=== PATIENT | male | born 1950 | race Caucasian/White ===

== ENCOUNTER 2020-08-23 08:05 | Outpatient (CLI) | payer OTHER, SELFPAY ==
--- NOTE | 2020-08-23 08:25 | US_ITS ---
WS: [id number] ULTRASOUND ABDOMEN LIMITED CLINICAL INFORMATION: ELEVATED LIVER ENZYMES COMPARISON: None. FINDINGS: Liver Size: Normal. Craniocaudal length: 11.1 cm. Echogenicity: Normal. Surface nodularity: None. Mass (size and location): None. Bile ducts Intrahepatic ducts: Normal. Common bile duct diameter: 0.5 cm. Gallbladder Normal. Gallstones: None. Gallbladder sludge: None. Gallbladder wall thickening: None. Pericholecystic fluid: None. Sonographic Wade sign: Absent. Pancreas Normal as visualized. Right kidney: Normal. Hydronephrosis: None. Size: 10.1 cm x 4.3 cm x 4.1 cm. Abdominal aorta and IVC Visualized portions are normal. Ascites: None. US/US liver [id number] IMPRESSION: Normal abdominal ultrasound
== END 2020-08-23 08:06 | disposition home or self-care (01) ==
LOC: US 08:07
PROVIDERS: PCP Family Medicine; Visit Provider Family Medicine
DX: R94.5 Abnormal results of liver function studies (principal)
CPT/HCPCS: 76705

== ENCOUNTER 2022-03-17 08:16 | Oncology outpatient (recurring) (ONCR) | payer OTHER, SELFPAY ==
[2022-03-17 09:38] LABS: Basophils % 0.8 %; Eosinophils % 1.1 %; Hematocrit 28.3 % (42.0-52.0); Hemoglobin 9.4 g/dL (11.7-16.6); Lymphocytes # 0.6 10^3/uL (0.8-4.8); Lymphocytes % 22.9 %; Mean Corpuscular HGB Conc 33.2 g/dL (30.0-36.0); Mean Corpuscular Hemoglobin 37.9 pg (28.0-34.0); Mean Corpuscular Volume 114.1 fl (80-94); Mean Platelet Volume 11.6 fL (7.4-10.4); Monocytes # 0.3 10^3/uL (0.2-0.9); Monocytes % 10.2 %; Neutrophils # 1.73 10^3/uL (1.8-7.7); Nucleated Red Blood Cells % 0 %; Platelet Count 124 10^3/cmm (130-400); Red Blood Count 2.48 10^6/uL (4.1-5.3); Red Cell Distribution Width 17.9 % (12.1-15.1); White Blood Count 2.7 10^3/uL (4.0-10.0)
[2022-03-17 09:55] LABS: LAB Peripheral Smear Sent for Review
[2022-03-17 10:25] LABS: Alanine Aminotransferase 11 U/L (0-41); Albumin Level 4.1 g/dL (3.5-5.2); Alkaline Phosphatase 97 U/L (40-130); Anion Gap 8.1 (5-19); Aspartate Amino Transferase 44 U/L (0-40); Blood Urea Nitrogen 17 mg/dL (8-23); Calcium 9.2 mg/dL (8.5-10.5); Carbon Dioxide 30 mmol/L (22-29); Chloride 98 mmol/L (98-107); Globulin 3.2 g/dL (1.3-4.6); Glucose 102 mg/dL (65-115); Iron 84 ug/dL (59-158); Lactate Dehydrogenase 924 U/L (135-225); Osmolality Calculated 276 mOsm/kg (285-295); Potassium 4.1 mmol/L (3.5-5.1); Sodium 132 mmol/L (136-145); Total Bilirubin 1.6 mg/dL (0.15-1.2); Total Iron Binding Capacity 227 mcg/dl; Total Protein 7.3 g/dL (6.6-8.7); Unsaturated Iron Binding 143 ug/dL (112-347); Vitamin B12 641 pg/mL (232-1245)
[2022-03-21 09:29] LABS: Methylmalonic Acid 128 nmol/L (87-318)
== END 2022-04-05 23:59 | disposition home or self-care (01) ==
PROVIDERS: PCP Family Medicine; Visit Provider Internal Medicine Medical Oncology
DX: D53.9 Nutritional anemia, unspecified (principal); Z85.46 Personal history of malignant neoplasm of prostate; Z92.3 Personal history of irradiation
CPT/HCPCS: 36415; 80053; 82607; 83540; 83550; 83615; 83921; 85025; 88184; 88185; 99205

== ENCOUNTER 2022-04-11 09:08 | Oncology outpatient (recurring) (ONCR) | payer OTHER, SELFPAY ==
[2022-04-11 10:17] LABS: Basophils % 0.6 %; Eosinophils % 0.3 %; Hematocrit 29.7 % (42.0-52.0); Hemoglobin 9.9 g/dL (11.7-16.6); Lymphocytes # 0.6 10^3/uL (0.8-4.8); Lymphocytes % 15.9 %; Mean Corpuscular HGB Conc 33.3 g/dL (30.0-36.0); Mean Corpuscular Hemoglobin 38.1 pg (28.0-34.0); Mean Corpuscular Volume 114.2 fl (80-94); Mean Platelet Volume 10.9 fL (7.4-10.4); Monocytes # 0.3 10^3/uL (0.2-0.9); Monocytes % 8.8 %; Neutrophils # 2.63 10^3/uL (1.8-7.7); Neutrophils % 74.4 %; Nucleated Red Blood Cells % 0 %; Platelet Count 127 10^3/cmm (130-400); Red Cell Distribution Width 17.1 % (12.1-15.1); White Blood Count 3.5 10^3/uL (4.0-10.0)
[2022-04-11 10:32] LABS: D Dimer 0.49 ug/mIFEU (0-0.59)
[2022-04-11 10:34] LABS: Alanine Aminotransferase 19 U/L (0-41); Alkaline Phosphatase 111 U/L (40-130); Anion Gap 11.1 (5-19); Aspartate Amino Transferase 51 U/L (0-40); Blood Urea Nitrogen 14 mg/dL (8-23); Calcium 9.1 mg/dL (8.5-10.5); Carbon Dioxide 29 mmol/L (22-29); Chloride 99 mmol/L (98-107); Globulin 3.2 g/dL (1.3-4.6); Glucose 106 mg/dL (65-115); Lactate Dehydrogenase 847 U/L (135-225); Osmolality Calculated 281 mOsm/kg (285-295); Potassium 4.1 mmol/L (3.5-5.1); Reticulocyte % 3.2 % (0.5-2.0); Sodium 135 mmol/L (136-145); Total Bilirubin 2.4 mg/dL (0.15-1.2); Total Protein 7.2 g/dL (6.6-8.7)
== END 2022-05-06 23:59 | disposition home or self-care (01) ==
LOC: ONCMED 09:09
PROVIDERS: PCP Family Medicine; Visit Provider Internal Medicine Medical Oncology
DX: D59.5 Paroxysmal nocturnal hemoglobinuria [Marchiafava-Micheli] (principal); D61.818 Other pancytopenia
CPT/HCPCS: 36415; 80053; 82248; 83010; 83615; 85025; 85045; 85378; 99214

== ENCOUNTER 2022-04-21 09:59 | Day surgery (SDC) | payer OTHER, SELFPAY ==
[2022-04-17 12:22] VITALS: BMI 20.5
[2022-04-21 10:45] VITALS: BP 144/75; PULSE 63; RESP 18; TEMP 36.8; O2SAT 100
[2022-04-21] MEDS: sodium chloride 0.9% 1,000 ML 30 ML IV (11:05)
[2022-04-21 11:15] LABS: Basophils % 0.9 %; Eosinophils # 0.1 10^3/uL (0.0-0.8); Eosinophils % 1.9 %; Hematocrit 31.2 % (42.0-52.0); Hemoglobin 10.3 g/dL (11.7-16.6); Lymphocytes # 0.8 10^3/uL (0.8-4.8); Mean Corpuscular Hemoglobin 37.5 pg (28.0-34.0); Mean Corpuscular Volume 113.5 fl (80-94); Mean Platelet Volume 11.7 fL (7.4-10.4); Monocytes # 0.3 10^3/uL (0.2-0.9); Monocytes % 7.9 %; Neutrophils # 2.02 10^3/uL (1.8-7.7); Nucleated Red Blood Cells % 0 %; Platelet Count 149 10^3/cmm (130-400); Red Blood Count 2.75 10^6/uL (4.1-5.3); Red Cell Distribution Width 17.4 % (12.1-15.1); White Blood Count 3.2 10^3/uL (4.0-10.0)
--- NOTE | 2022-04-21 11:54 | ANES.PREANE2 ---
Pre-Anesthetic Assessment Height/Weight: Height 1.73 m Weight 61.235 kg Temp Pulse Resp BP Pulse Ox O2 Del Method 98.2 F 63 18 144/75 100 04/21/22 10:45 04/21/22 10:45 04/21/22 10:45 04/21/22 10:45 04/21/22 10:45 04/21/22 10:45 Operation Date: 04/21/22 12:30 Proposed Procedures p Bone Marrow Biospy With Aspiration(Not Applicable) - Patience Davison MD Familial anesthetic complications: None Was Beta Jana taken within 24 hours: N/A Was Clonidine taken within 24 hours: N/A Last intake: Intake Last Liquid Date 04/20/22 Last Liquid Time 23:30 Last Solid Date 04/20/22 Last Solid Time 23:30 Social Alcohol (Social) and Tobacco (Marijuana daily) Exam alert, oriented x 3, clear to auscultation bilaterally and regular rate & rhythm Airway Submandibular: within normal limits Cervical ROM: within normal limits Mallampati: Class II Dentition: full History/ROS No significant history except as noted and No significant complaints Pulmonary Chronic Obstructive Pulmonary Disease and Exertional Dyspnea CV/HEM Coronary Artery Disease None reported Hepatic None reported GI Gastroesophageal Reflux Disease Metabolic None reported Musc/skel Lower Back Pain and Osteoarthritis/DJD Neuropsych None reported Anesthetic Plan ASA status: 3 Anesthesia: Anesthesia Evaluation, General and MAC Risk of > 500 ml blood loss (7ml/kg in children): No Medications/Allergies Home Medications Medication Instructions Recorded Confirmed Last Taken Type cholecalciferol (vitamin D3) 10 10 mcg PO DAILY 03/17/22 04/17/22 04/18/22 History mcg (400 unit) capsule tamsulosin 0.4 mg capsule 0.4 mg PO DAILY 03/17/22 04/17/22 04/18/22 History aspirin 81 mg tablet 81 mg PO DAILY 04/17/22 04/17/22 04/18/22 07:00 History cyanocobalamin (vitamin B-12) 1,000 mcg PO DAILY #30 caps 04/18/22 04/21/22 04/18/22 Rx 1,000 mcg capsule Allergies Allergy/AdvReac Type Severity Reaction Status Date / Time No Known Allergies Allergy Verified 04/17/22 12:28 Current Medications Generic Name Dose Route Start Last Admin Trade Name Freq PRN Reason Stop Dose Admin Sodium Chloride 1,000 mls @ 30 mls/hr 04/21/22 10:30 04/21/22 11:05 Sodium Chloride 0.9% IV 04/22/22 10:29 30 mls/hr .Q24H FLOYD Administration PFSH Anesthesia Medical History (Updated 04/11/22 @ 09:51 by Randy Figueroa MD) History of autoimmune thrombocytopenia Hypertension Paroxysmal nocturnal hemoglobinuria Prostate cancer Treated with brachytherapy (seed implants) Surgical History History of bronchoscopy (2017) Bronchoscopy/EBUS with FNA biopsies of right lower lobe and mediastinal lymph nodes Family History Brother Lung disease Stage 4 lung cancer - smoker Other CAD (coronary artery disease) Cancer Denies family history of Diabetes Clotting disorder Dementia Hyperlipidemia Psychiatric illness Chronic kidney disease (CKD) Suicide Anesthesia complication Bleeding disorder Stroke Social History Smoking and tobacco status: never smoked Alcohol intake: current Alcohol intake frequency: holidays/special occasions only Data Anesthesia 04/21/22 Unknown Short CBC 04/21/22 Range/Units Unknown WBC 3.2 L (4.0-10.0) 10^3/uL Hgb 10.3 L (11.7-16.6) g/dL Hct 31.2 L (42.0-52.0) % MCV 113.5 H (80-94) fl Plt Count 149 (130-400) 10^3/cmm Neut % (Auto) 64.0 % Neut # (Auto) 2.02 (1.8-7.7) 10^3/uL Cardiac Studies: No Data to Display
--- NOTE | 2022-04-21 12:27 | W.PM.OPSUD ---
Surgery/Procedure H&P Update DATE OF PROCEDURE: April 21, 2022 DATE H&P PERFORMED: 03/17/22 CHANGES TO PREVIOUS DOCUMENTATION: Patient seen and examined, no obvious new signs symptoms since his last visit to the clinic PRIMARY INDICATION FOR PROCEDURE: Leukopenia/anemia PLANNED PROCEDURE: Operation Date: 04/21/22 12:30 Proposed Procedures p Bone Marrow Biospy With Aspiration(Not Applicable) - Patience Davison MD
--- NOTE | 2022-04-21 12:47 | P.PCN_ITS ---
Bone Marrow Biopsy Bone Marrow Biopsy: I was consulted by [] office regarding bone marrow biopsy on Russell Hancock,]. Briefly, the patient is a [71] year old [Male] with [Pancytopenia]. In the Outpatient Services Department, with nursing staff and laboratory technologists in attendance, the procedure was discussed with the patient. Appropriate consent form had been signed. Appropriate alternatives, benefits and risks of procedure were discussed with the patient and he was pre- operatively assessed with a history and physical by myself and cleared for the biopsy procedure. The patient did request IV sedation and that was provided by the Anesthesia Department. Under aseptic condition, right posterior iliac area was cleaned and prepped, local anesthesia was given, about 15 cc of bone marrow aspirate and core biopsy was obtained, patient tolerated procedure well, hemostasis obtained, specimen was sent for routine histopathology, flow cytometry, cytogenetics, FISH for MDS and next generation heme. Postprocedure nursing instructions were given Thank you for allowing me to participate in this patient's care and diagnosis. Coding Level of Care Code Acute Code for Chg Fwd History Problem Focused Exam Problem Focused Medical Decision Making Straight Forward
[2022-04-21 12:50] VITALS: BP 101/53; PULSE 62; RESP 12; TEMP 36.3; O2SAT 100
[2022-04-21 13:00] VITALS: BP 125/72; PULSE 69; RESP 16; O2SAT 100
[2022-04-21 13:10] VITALS: BP 122/69; PULSE 61; RESP 18; O2SAT 100
--- NOTE | 2022-04-21 14:44 | ANE.PACU2 ---
Inpatient post-anesthesia follow up: Airway intact: Yes Vital signs: Temperature 97.4 F Pulse Rate 61 Respiratory Rate 18 Blood Pressure 122/69 Pulse Oximetry 100 Oxygen Delivery Me thod Room Air Oxygen Flow Rate Fraction of Inspir ed Oxygen Hydration adequate: Yes Nausea and vomiting: No Pain level: 2 Mental status: Baseline
[2022-04-22 16:21] LABS: Lymphoma Profile (BBPL) See Report
[2022-04-23 07:35] LABS: Leukemia Profile (BBPL) See Report
[2022-05-01 15:49] LABS: Chromosome Analysis BBPL See Report; MDS Panel (BBPL) See Report
[2022-05-06 06:07] LABS: Miscellaneous Test See Scanned Lab Rpt
== END 2022-04-21 13:28 | disposition home or self-care (01) ==
PROVIDERS: PCP Family Medicine; Visit Provider Internal Medicine Hematology & Oncology
PROC: 07DT3ZX Extraction of Bone Marrow, Percutaneous Approach, Diagnostic (ICD-10-PCS; CPT 38222; principal; 2022-04-21 12:30)
DX: D61.818 Other pancytopenia (principal); J44.9 Chronic obstructive pulmonary disease, unspecified; I25.10 Atherosclerotic heart disease of native coronary artery without angina pectoris; K21.9 Gastro-esophageal reflux disease without esophagitis; I10 Essential (primary) hypertension; D72.819 Decreased white blood cell count, unspecified; D64.9 Anemia, unspecified
CPT/HCPCS: 36415; 38222; 85025; 88184; 88185; 88237; 88264; 88291; 88305; 88311; 88367; 88374; J7030

== ENCOUNTER 2022-10-31 14:09 | Emergency (ER) | payer OTHER, SELFPAY ==
[2022-10-31 14:15] VITALS: BP 148/68; PULSE 89; RESP 18; TEMP 36.4; O2SAT 99; BMI 19.8
[2022-10-31 14:50] VITALS: BP 153/74; PULSE 77; RESP 18; O2SAT 99
--- NOTE | 2022-10-31 15:01 | XR_ITS ---
WS: [id number] EXAMINATION: XR chest 1V portable [id number] REASON FOR EXAM: dyspnea/cough COMPARISON: None available. ORDER DATE: 10/31/2022 3:01 PM FINDINGS: There are scattered perihilar granulomatous calcifications including areas in each lung apex near 2 r egions of apical pleural thickening. There is a focal area of more significant pleural thickening in the lateral left upper lobe associated with the elongated linear area of atelectasis extending toward the left hilum. This could be obscuring a pleural-based nodule. There are chronically increased phillip hilar /basilar bronchovascular and interstitial thickening with hyperinflation. The cardiac and medi astinal outlines are unremarkable. There are no pleural effusions. Chronic degenerative spine changes are present. XR/XR chest 1V portable [id number] IMPRESSION: DIFFUSE PULMONARY CHANGES OF COPD. THERE IS A POSSIBILITY OF A SPICULATED PLEURAL-BASED NODULE IN THE LEFT UPPER LUNG LATERALLY WITH NO PREVIOUS STUDIES AVAILABLE FOR COMPARISON. UNLESS THERE HAS BEEN RECENT CHEST CT IMAGING OF THIS IS RECOMMENDED FOR FURTHER ASSESSMENT.
--- NOTE | 2022-10-31 15:02 | W.ED.SYNCOPE ---
HPI - Syncope General: Chief Complaint: Syncope Stated Complaint: confusion, stumbling Time Seen by Provider: 10/31/22 14:31 Source: patient Mode of arrival: ambulatory History of Present Illness: 72-year-old male presents emergency room via private vehicle complaining of lightheadedness dizziness near syncopal episode at home. He was working outside and squatted down to work on something when he went to stand up he got lightheaded dizzy use tried to get to walk for some water and had difficulty some friends had to help him. He is symptom-free on arrival here he is drinking water. Denies any chest or abdominal pain. He has not had any vomiting no diarrhea no dysuria urgency or frequency no shortness of breath since EMS picked him up. MD complaint: almost passed out Onset (ago): minute(s) Prodromal symptoms: lightheaded, palpitations and shortness of breath Witnessed: Yes - by Bystander Context: standing up Associated symptoms: Deny abdominal pain, chest pain, fever(s) or nausea Treatments prior to arrival: IV fluids Review of Systems Const: Denies: fever(s), chills, body aches, change in appetite, fatigue or malaise ENMT: Denies: throat pain, ear or mastoid pain, nasal discharge or nasal congestion Card: Denies: chest pain, edema, dyspnea on exertion or orthopnea Resp: Denies: dyspnea, productive cough or non-productive cough GI: Denies: abdominal pain, nausea, vomiting, hematemesis, coffee ground emesis, diarrhea, constipation, bloating, hematochezia or melena : Denies: flank pain, dysuria, urinary frequency or urinary urgency Skin/Breast: Denies: rash or pruritus PFSH ED PFSH: Medical History History of autoimmune thrombocytopenia Hypertension Paroxysmal nocturnal hemoglobinuria Prostate cancer Treated with brachytherapy (seed implants) Surgical History History of bronchoscopy (2017) Bronchoscopy/EBUS with FNA biopsies of right lower lobe and mediastinal lymph nodes Family History Brother Lung disease Stage 4 lung cancer - smoker Other CAD (coronary artery disease) Cancer Denies family history of Diabetes Clotting disorder Dementia Hyperlipidemia Psychiatric illness Chronic kidney disease (CKD) Suicide Anesthesia complication Bleeding disorder Stroke Social History Smoking and tobacco status: never smoked Alcohol intake: current Alcohol intake frequency: holidays/special occasions only Physical Exam Const: COMMON NORMALS: no acute distress GENERAL APPEARANCE: cooperative and comfortable ORIENTATION/CONSCIOUSNESS: Yes awake, Yes oriented to person, Yes oriented to place and Yes oriented to time HENMT: COMMON NORMALS: normocephalic, atraumatic and hearing grossly normal bilaterally HEAD & SCALP: normocephalic and atraumatic Resp: COMMON NORMALS: normal respiratory effort, No retractions, No use of accessory muscles and clear to auscultation bilaterally AUSCULTATION: clear to auscultation bilaterally Cardio: COMMON NORMALS: regular rate, regular rhythm and No murmurs present (Cardio) RATE: regular rate RHYTHM: regular rhythm GI: COMMON NORMALS: Soft to palpation and No hepatosplenomegaly present AUSCULTATION: Yes normoactive bowel sounds PALPATION: Yes Soft to palpation, No Tenderness to palpation present (GI), No Guarding due to palpation present (GI) and Yes No hepatosplenomegaly present Extremity: COMMON NORMALS: normal to inspection, capillary refill normal, no clubbing, cyanosis or edema, no calf tenderness and no pedal edema Neuro: SENSORIUM/ORIENTATION: Yes oriented to person, Yes oriented to place and Yes oriented to time Skin: COMMON NORMALS: no rashes or lesions noted GENERAL SKIN EXAM: no rashes or lesions noted Course Vital Signs: Vital signs: Vital Signs Temperature 97.6 F 10/31/22 14:15 Pulse Rate 74 10/31/22 16:21 Respiratory Rate 16 10/31/22 16:21 Blood Pressure 137/70 10/31/22 16:21 Pulse Oximetry 100 10/31/22 16:21 Oxygen Delivery Me thod Room Air 10/31/22 16:21 MDM - Syncope Medical Decision Making Improved after fluids. We will discharge patient home. Encourage avoiding excessive heat also increasing fluid intake. Incidental finding of the left upper lung nodule. Case management will be asked to make arrangements for pulmonology referral to evaluate Medical Records I reviewed the patient's medical records. Lab Data I reviewed the patient's lab results. 10/31/22 14:48 10/31/22 14:48 Radiology Impressions Chest X-Ray 10/31/22 15:01 IMPRESSION: DIFFUSE PULMONARY CHANGES OF COPD. THERE IS A POSSIBILITY OF A SPICULATED PLEURAL-BASED NODULE IN THE LEFT UPPER LUNG LATERALLY WITH NO PREVIOUS STUDIES AVAILABLE FOR COMPARISON. UNLESS THERE HAS BEEN RECENT CHEST CT IMAGING OF THIS IS RECOMMENDED FOR FURTHER ASSESSMENT. Laboratory Results WBC 2.3 10^3/uL (4.0-10.0) L 10/31/22 14:48 RBC 2.93 10^6/uL (4.1-5.3) L 10/31/22 14:48 Hgb 10.6 g/dL (11.7-16.6) L 10/31/22 14:48 Hct 32.2 % (42.0-52.0) L 10/31/22 14:48 MCV 109.9 fl (80-94) H 10/31/22 14:48 MCH 36.2 pg (28.0-34.0) H 10/31/22 14:48 MCHC 32.9 g/dL (30.0-36.0) 10/31/22 14:48 RDW 17.8 % (12.1-15.1) H 10/31/22 14:48 Plt Count 82 10^3/cmm (130-400) L 10/31/22 14:48 MPV 12.4 fL (7.4-10.4) H 10/31/22 14:48 Neut % (Auto) 70.8 % 10/31/22 14:48 Lymph % (Auto) 22.4 % 10/31/22 14:48 [place] % (Auto) 4.7 % 10/31/22 14:48 Eos % (Auto) 1.3 % 10/31/22 14:48 Baso % (Auto) 0.4 % 10/31/22 14:48 Neut # (Auto) 1.64 10^3/uL (1.8-7.7) L 10/31/22 14:48 Lymph # (Auto) 0.5 10^3/uL (0.8-4.8) L 10/31/22 14:48 [place] # (Auto) 0.1 10^3/uL (0.2-0.9) L 10/31/22 14:48 Eos # (Auto) 0.0 10^3/uL (0.0-0.8) 10/31/22 14:48 Baso # (Auto) 0.0 10^3/uL (0.0-0.1) 10/31/22 14:48 Nucleated RBC % (auto) 0 % 10/31/22 14:48 Nucleated RBCs # 0.0 /100WBC 10/31/22 14:48 Sodium 142 mmol/L (136-145) 10/31/22 14:48 Potassium 4.7 mmol/L (3.5-5.1) 10/31/22 14:48 Chloride 103 mmol/L (98-107) 10/31/22 14:48 Carbon Dioxide 28 mmol/L (22-29) 10/31/22 14:48 Anion Gap 15.7 (5-19) 10/31/22 14:48 BUN 16 mg/dL (8-23) 10/31/22 14:48 Creatinine 0.8 mg/dL (0.7-1.2) 10/31/22 14:48 GFR Calculation Not Reportable 10/31/22 14:48 Glucose 142 mg/dL (65-115) H 10/31/22 14:48 Calculated Osmolality 298 mOsm/kg (285-295) H 10/31/22 14:48 Calcium 8.9 mg/dL (8.5-10.5) 10/31/22 14:48 Magnesium 1.9 mg/dL (1.7-2.3) 10/31/22 14:48 Total Bilirubin 1.3 mg/dL (0.15-1.2) H 10/31/22 14:48 AST 26 U/L (0-40) 10/31/22 14:48 ALT 8 U/L (0-41) 10/31/22 14:48 Alkaline Phosphatase 103 U/L (40-130) 10/31/22 14:48 Total Protein 6.9 g/dL (6.6-8.7) 10/31/22 14:48 Albumin 4.2 g/dL (3.5-5.2) 10/31/22 14:48 Globulin 2.7 g/dL (1.3-4.6) 10/31/22 14:48 Discharge Plan Discharge Patient Disposition: Home Clinical Impression: Heat exhaustion, Left upper lobe pulmonary nodule, COPD (chronic obstructive pulmonary disease) Condition: Stable Prescriptions: No Action cholecalciferol (vitamin D3) 10 mcg (400 unit) capsule 10 mcg PO DAILY tamsulosin 0.4 mg capsule 0.4 mg PO DAILY cyanocobalamin (vitamin B-12) 1,000 mcg capsule 1,000 mcg PO DAILY Qty: 30 0RF Aspir-81 81 mg Tablet,Delayed Release (Dr/Ec) 81 mg PO DAILY Discharge Orders: Discharge ED (Routine); Ordered 10/31/22 Ordered By: Franko Kimbrough Referrals: Susy Cantrell MD [Primary Care Provider] - Discharge Diet: Usual diet Discharge Activity: Increase activity as tolerated Patient Instructions: Opioid Safety, Pain Management Activity Restrictions/Additional Instructions: You are seen today for heat exhaustion. Avoid heat exposure drink plenty of fluids. We also noted an abnormality in the left upper lobe of your chest on a plain chest x-ray. This should be evaluated further. Case management make arrangements for you to follow-up with pulmonology. Coding Level of Care Code ED [employer] Director for [employer]
--- NOTE | 2022-10-31 15:10 | ECG_ITS ---
[facility] Test Date: 2022-10-31 Pat Name: Russell Hancock Department: Room: Gender: Male [employer]: : 1950 Requested By: Franko Feng Order Number: [id number] Puma MD: Morteza Larson M.D. Measurements Intervals [place] Rate: 69 P: 70 MT: 159 QRS: 66 QRSD: 83 T: 67 QT: 405 QTc: 434 Interpretive Statements SINUS RHYTHM No previous ECG available for comparison Electronically Signed On 10-31-2022 18:39:20 CDT by Morteza Larson M.D. [id number]
[2022-10-31 15:20] LABS: Basophils % 0.4 %; Eosinophils % 1.3 %; Hematocrit 32.2 % (42.0-52.0); Hemoglobin 10.6 g/dL (11.7-16.6); Lymphocytes # 0.5 10^3/uL (0.8-4.8); Lymphocytes % 22.4 %; Mean Corpuscular HGB Conc 32.9 g/dL (30.0-36.0); Mean Corpuscular Hemoglobin 36.2 pg (28.0-34.0); Mean Corpuscular Volume 109.9 fl (80-94); Mean Platelet Volume 12.4 fL (7.4-10.4); Monocytes # 0.1 10^3/uL (0.2-0.9); Monocytes % 4.7 %; Neutrophils # 1.64 10^3/uL (1.8-7.7); Neutrophils % 70.8 %; Nucleated Red Blood Cells % 0 %; Platelet Count 82 10^3/cmm (130-400); Red Blood Count 2.93 10^6/uL (4.1-5.3); Red Cell Distribution Width 17.8 % (12.1-15.1); White Blood Count 2.3 10^3/uL (4.0-10.0)
[2022-10-31 15:27] LABS: Alanine Aminotransferase 8 U/L (0-41); Albumin Level 4.2 g/dL (3.5-5.2); Alkaline Phosphatase 103 U/L (40-130); Anion Gap 15.7 (5-19); Aspartate Amino Transferase 26 U/L (0-40); Blood Urea Nitrogen 16 mg/dL (8-23); Calcium 8.9 mg/dL (8.5-10.5); Carbon Dioxide 28 mmol/L (22-29); Chloride 103 mmol/L (98-107); Creatinine Clr Calc Pharmacy 74.0515; Globulin 2.7 g/dL (1.3-4.6); Glucose 142 mg/dL (65-115); Magnesium 1.9 mg/dL (1.7-2.3); Osmolality Calculated 298 mOsm/kg (285-295); Potassium 4.7 mmol/L (3.5-5.1); Sodium 142 mmol/L (136-145); Total Bilirubin 1.3 mg/dL (0.15-1.2); Total Protein 6.9 g/dL (6.6-8.7)
[2022-10-31] MEDS: sodium chloride 0.9% 1,000 ML 999 ML IV (15:37)
[2022-10-31 16:21] VITALS: BP 137/70; PULSE 74; RESP 16; O2SAT 100
[2022-10-31 16:51] LABS: Add Urine Microscopic? NO; Charge for UA Resulting for Rev
[2022-10-31 17:09] LABS: Bilirubin Urine Neg (Negative); Blood Urine Neg (Negative); Glucose Urine UA Norm (Normal); Ketones Urine Negative (Negative); Leukocyte Esterase Urine Negative (Negative); Nitrate Urine Negative (Negative); Protein Urine Neg (Negative); Urine Appearance Clear (CLEAR); Urine Color Yellow (Yellow); Urobilinogen Urine Norm (Negative); pH Urine 7 (5-7)
--- NOTE | 2022-11-03 08:04 | DCPLANNER ---
Addendum entered by Marla Pederson 11/12/22 10:29: Patient had a follow up appointment scheduled with pulmonology - patient did attend appointment. Original Note: performing arts road manager had message to schedule a follow up appointment for patient with pulmonology. performing arts road manager sent patients information to the front office staff at [facility]. Patients information will be printed and reviewed. Clinic will call patient with appointment information.
== END 2022-10-31 17:21 | disposition home or self-care (01) ==
PROVIDERS: Emergency Provider Family Medicine; PCP Family Medicine
DX: T67.5XXA Heat exhaustion, unspecified, initial encounter (principal); R91.1 Solitary pulmonary nodule; J44.9 Chronic obstructive pulmonary disease, unspecified; I10 Essential (primary) hypertension; Z79.899 Other long term (current) drug therapy; Z79.82 Long term (current) use of aspirin
CPT/HCPCS: 71045; 80053; 81003; 83735; 85025; 93005; 96360; 96361; 99285; J7030

== ENCOUNTER → 2022-11-11 14:35 | Outpatient (BNVA) | payer OTHER, SELFPAY | PROVIDERS: PCP Family Medicine; Visit Provider Internal Medicine Pulmonary Disease | DX: R91.1 Solitary pulmonary nodule (principal); J44.9 Chronic obstructive pulmonary disease, unspecified; Z77.098 Contact with and (suspected) exposure to other hazardous, chiefly nonmedicinal, chemicals; F12.90 Cannabis use, unspecified, uncomplicated | CPT/HCPCS: 99204 ==

== ENCOUNTER 2022-12-09 11:24 | Emergency (ER) | payer OTHER, SELFPAY ==
[2022-12-09 11:30] VITALS: BP 129/57; PULSE 66; O2SAT 99; BMI 19.8
--- NOTE | 2022-12-09 12:15 | CT_ITS ---
WS: [id number] CT HEAD TECHNIQUE: Noncontrast CT of the head obtained from the skullbase to the vertex. CLINICAL INFORMATION: Symptoms of acute stroke COMPARISON: None. DLP: [id number] scans at [facility] use at least one of these dose optimization techniques: automated e xposure control; mA and/or kV adjustment per patient size (includes targeted exams where dose is matc hed to clinical indication); or iterative reconstruction. FINDINGS: No evidence of intracranial hemorrhage or mass effect. Ventricular system and basal cisterns are goldstein nt. Moderate small vessel changes with moderate parenchymal volume loss. Intracranial vascular calcif ication. No extra-axial fluid collections. No evidence of mass or mass effect. 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 Ex vacuo dilatation RIGHT posterior lateral ventricle. Incidental aamir cisterna ma gna. Vascular calcification. Mild mucosal thickening in the RIGHT mastoid tip. Mastoid air cells are well aerated. IMPRESSION: 1. No evidence of intracranial hemorrhage or mass effect. 2. Moderate small vessel changes. Moderate parenchymal volume loss. 3. Vascular calcification. 4. Chronic cortical infarcts involving the LEFT frontal lobe and RIGHT posterior frontal and parieta l lobes with ex vacuo dilatation of the RIGHT lateral ventricle. 5. Incidental aamir cisterna magna. 6. No acute intracranial findings. Notified Franko Kimbrough DO at 12/09/2022 12:32 PM.
--- NOTE | 2022-12-09 12:15 | W.ED.NEUROSD ---
HPI - Neuro Symptoms/Deficit General: Chief Complaint: Neuro Symptoms/Deficit Stated Complaint: LT side facial droop Time Seen by Provider: 12/09/22 12:14 Source: patient Mode of arrival: ambulatory History of Present Illness: 72-year-old male presents emergency room with complaint of what he describes as weakness and drooping on the right side of his face question him several times on this and he confirmed he feels all of his symptoms are on the right side of the face. He reports drooping and numbness. He went to bed last night around midnight woke up this morning at 830 with these complaints. He presented at around 1130. He has not any difficulty speech swallowing gait no nausea vomiting or dizziness. Denies any chest pain. Onset (ago): minute(s) Location: right face (Per patient) History of same: No Severity: mild Quality: weak and tingling Relieving factors: none Exacerbating factors: none Context: other (Woke up with symptoms) On Anticoagulants: No Associated symptoms: Deny chest pain, cough, diaphoresis, fevers/chills, headache(s), anorexia, malaise, nausea, seizures, short of breath, syncope, tingling, vertigo, vomiting or weakness Treatments Prior to Arrival: none Review of Systems Const: Denies: fever(s), chills, malaise or diaphoresis ENMT: Denies: throat pain, ear or mastoid pain, nasal discharge or nasal congestion Card: Denies: chest pain or syncope Resp: Denies: dyspnea, productive cough or non-productive cough GI: Denies: abdominal pain, nausea or vomiting : Denies: flank pain, dysuria, urinary frequency or urinary urgency Skin/Breast: Denies: rash or pruritus Neuro: Denies: headache(s) or vertigo PFS ED PFSH: Medical History History of autoimmune thrombocytopenia Hypertension Paroxysmal nocturnal hemoglobinuria Prostate cancer Treated with brachytherapy (seed implants) Surgical History History of bronchoscopy (2017) Bronchoscopy/EBUS with FNA biopsies of right lower lobe and mediastinal lymph nodes Family History Brother Lung disease Stage 4 lung cancer - smoker Other CAD (coronary artery disease) Cancer Denies family history of Diabetes Clotting disorder Dementia Hyperlipidemia Psychiatric illness Chronic kidney disease (CKD) Suicide Anesthesia complication Bleeding disorder Stroke Social History Smoking and tobacco status: never smoked Alcohol intake: current Alcohol intake frequency: holidays/special occasions only NIH stroke score NIHSS: Level Of Consciousness - 1a: 0 Level Of Consciousness Questions - 1b: Both Correct Level Of Consciousness Commands - 1c: Both Correct Best Gaze - 2: Normal Visual Nelson - 3: No Visual Loss Facial Palsy - 4: Minor Paralysis (Left side face) Motor Arm Right - 5: No Drift Motor Arm Left - 5: No Drift Motor Leg Right - 6: No Drift Motor Leg Left - 6: No Drift Limb Ataxia - 7: Absent Sensory - 8: Mild To Moderate Loss (Right side of the face only) Best Language - 9: No Aphasia Dysarthia - 10: Normal Extinction And Inattention - 11: 0 Score: Total Score: 2 Physical Exam Const: GENERAL APPEARANCE: cooperative and comfortable ORIENTATION/CONSCIOUSNESS: Yes awake, Yes oriented to person, Yes oriented to place and Yes oriented to time HENMT: COMMON NORMALS: normocephalic, atraumatic and hearing grossly normal bilaterally HEAD & SCALP: normocephalic and atraumatic Resp: COMMON NORMALS: normal respiratory effort, No retractions, No use of accessory muscles and clear to auscultation bilaterally AUSCULTATION: clear to auscultation bilaterally Cardio: COMMON NORMALS: regular rate, regular rhythm and No murmurs present (Cardio) RATE: regular rate RHYTHM: regular rhythm GI: COMMON NORMALS: Soft to palpation and No hepatosplenomegaly present AUSCULTATION: Yes normoactive bowel sounds PALPATION: Yes Soft to palpation, No Tenderness to palpation present (GI), No Guarding due to palpation present (GI) and Yes No hepatosplenomegaly present Extremity: COMMON NORMALS: normal to inspection, capillary refill normal, no clubbing, cyanosis or edema, no calf tenderness and no pedal edema Neuro: SENSORIUM/ORIENTATION: Yes oriented to person, Yes oriented to place and Yes oriented to time Skin: COMMON NORMALS: no rashes or lesions noted GENERAL SKIN EXAM: no rashes or lesions noted Course Vital Signs: Vital signs: Vital Signs Pulse Rate 83 09/05/23 14:07 Blood Pressure 153/83 12/09/22 14:07 Pulse Oximetry 97 12/09/22 14:07 Oxygen Delivery Me thod Room Air 12/09/22 12:39 MDM - Neuro Symptoms/Deficit Medical Decision Making Patient is awake alert and oriented 0 stroke score is 2 however is really not congruent with a stroke. Reexamined multiple times that is very focal on questioning exam he has an obvious left-sided facial droop however he persists in saying that his he feels like all of his symptoms including droop are on the right. When tested for loss of sensation he reports decreased sensation on the right compared to the left but this is only in the face and extremities he has no other symptoms. There is no involvement of the forehead or the eye on either side. It only affects the lower portion of the left face and is sensory deficit on testing is only in the lower portion of the right face. CT does not show any significant abnormalities. He is outside the window of opportunity for treatment or consideration based on the timing his stroke score is too low for any intervention or embolectomy. His signs are not consistent with a particular lesion at this time. Reviewed all this with him he feels well enough he would prefer to go home we offered admission for further evaluation he does not wish to do this. Stable couple of times he prefers to just go home. Recommend he start dual platelet therapy aspirin and clopidogrel as well as atorvastatin 40 daily we will set him up for outpatient testing and follow-up with neurology return if he has further problems. Medical Records I reviewed the patient's medical records. Lab Data I reviewed the patient's lab results. 12/09/22 11:45 12/09/22 11:45 Laboratory Results WBC 2.29 10^3/uL (3.29-11.43) L 12/09/22 11:45 RBC 2.86 10^6/uL (3.85-5.65) L 12/09/22 11:45 Hgb 10.20 g/dL (11.27-16.99) L 12/09/22 11:45 Hct 31.4 % (37-53) L 12/09/22 11:45 MCV 109.8 fl (82-101) H 12/09/22 11:45 MCH 35.7 pg (27-33) H 12/09/22 11:45 MCHC 32.5 g/dL (30-55) 12/09/22 11:45 RDW 18.0 % (12.1-15.1) H 12/09/22 11:45 Plt Count 76 10^3/cmm (157-399) L 12/09/22 11:45 MPV 12.7 fL (7.4-10.4) H 12/09/22 11:45 Neut % (Auto) 71.2 % 12/09/22 11:45 Lymph % (Auto) 22.7 % 12/09/22 11:45 Sullivan % (Auto) 4.4 % 12/09/22 11:45 Eos % (Auto) 0.9 % 12/09/22 11:45 Baso % (Auto) 0.4 % 12/09/22 11:45 Neut # (Auto) 1.63 10^3/uL (1.8-7.7) L 12/09/22 11:45 Lymph # (Auto) 0.5 10^3/uL (0.8-4.8) L 12/09/22 11:45 Sullivan # (Auto) 0.1 10^3/uL (0.2-0.9) L 12/09/22 11:45 Eos # (Auto) 0.0 10^3/uL (0.0-0.8) 12/09/22 11:45 Baso # (Auto) 0.0 10^3/uL (0.0-0.1) 12/09/22 11:45 Nucleated RBC % (auto) 0 % 12/09/22 11:45 Nucleated RBCs # 0.0 /100WBC 12/09/22 11:45 PT 13.60 SECONDS (12.1-14.9) 12/09/22 11:45 INR 1.01 (0.8-1.2) 12/09/22 11:45 APTT 24.3 SECONDS (23.9-36.7) 12/09/22 11:45 Sodium 137 mmol/L (136-145) 12/09/22 11:45 Potassium 4.1 mmol/L (3.5-5.1) 12/09/22 11:45 Chloride 101 mmol/L (98-107) 12/09/22 11:45 Carbon Dioxide 31 mmol/L (22-29) H 12/09/22 11:45 Anion Gap 9.1 (5-19) 12/09/22 11:45 BUN 11 mg/dL (8-23) 12/09/22 11:45 Creatinine 0.7 mg/dL (0.7-1.2) 12/09/22 11:45 GFR Calculation Not Reportable 12/09/22 11:45 Glucose 117 mg/dL (65-115) H 12/09/22 11:45 POC Glucose 99 mg/dL (70-110) 12/09/22 12:57 Calculated Osmolality 284 mOsm/kg (285-295) L 12/09/22 11:45 Calcium 8.9 mg/dL (8.5-10.5) 12/09/22 11:45 Total Bilirubin 1.6 mg/dL (0.15-1.2) H 12/09/22 11:45 AST 23 U/L (0-40) 12/09/22 11:45 ALT 8 U/L (0-41) 12/09/22 11:45 Alkaline Phosphatase 86 U/L (40-130) 12/09/22 11:45 Total Protein 6.7 g/dL (6.6-8.7) 12/09/22 11:45 Albumin 4.2 g/dL (3.5-5.2) 12/09/22 11:45 Globulin 2.5 g/dL (1.3-4.6) 12/09/22 11:45 Discharge Plan Discharge Patient Disposition: Home Clinical Impression: Transient cerebral ischemia Condition: Stable Prescriptions: New clopidogrel 75 mg tablet 75 mg PO DAILY Qty: 30 0RF atorvastatin 40 mg tablet 40 mg PO DAILY Qty: 30 0RF No Action cholecalciferol (vitamin D3) 10 mcg (400 unit) capsule 10 mcg PO DAILY tamsulosin 0.4 mg capsule 0.4 mg PO DAILY Spiriva with HandiHaler 18 mcg capsule, w/inhalation device 1 cap inhalation DAILY Qty: 60 3RF Rx Instructions: puncture 1 cap using device; one dose = 2 inhalations cyanocobalamin (vitamin B-12) 1,000 mcg capsule 1,000 mcg PO DAILY Qty: 30 0RF Aspir-81 81 mg Tablet,Delayed Release (Dr/Ec) 81 mg PO DAILY Discharge Orders: Discharge ED (Routine); Ordered 12/09/22 Ordered By: Franko Kimbrough Referrals: Susy Cantrell MD [Primary Care Provider] - Discharge Diet: Usual diet Discharge Activity: Resume usual activity Patient Instructions: Opioid Safety, Pain Management Coding Level of Care Code ED Endocrinology Physician for Pj Leo
[2022-12-09 12:23] LABS: Basophils % 0.4 %; Eosinophils % 0.9 %; Hematocrit 31.4 % (37-53); Lymphocytes # 0.5 10^3/uL (0.8-4.8); Lymphocytes % 22.7 %; Mean Corpuscular HGB Conc 32.5 g/dL (30-55); Mean Corpuscular Hemoglobin 35.7 pg (27-33); Mean Corpuscular Volume 109.8 fl (82-101); Mean Platelet Volume 12.7 fL (7.4-10.4); Monocytes # 0.1 10^3/uL (0.2-0.9); Monocytes % 4.4 %; Neutrophils # 1.63 10^3/uL (1.8-7.7); Neutrophils % 71.2 %; Nucleated Red Blood Cells % 0 %; Platelet Count 76 10^3/cmm (157-399); Red Blood Count 2.86 10^6/uL (3.85-5.65); White Blood Count 2.29 10^3/uL (3.29-11.43)
[2022-12-09 12:27] LABS: INR 1.01 (0.8-1.2)
[2022-12-09 12:28] LABS: Partial Thromboplastin Time 24.3 SECONDS (23.9-36.7)
[2022-12-09 12:31] LABS: Alanine Aminotransferase 8 U/L (0-41); Albumin Level 4.2 g/dL (3.5-5.2); Alkaline Phosphatase 86 U/L (40-130); Anion Gap 9.1 (5-19); Aspartate Amino Transferase 23 U/L (0-40); Blood Urea Nitrogen 11 mg/dL (8-23); Calcium 8.9 mg/dL (8.5-10.5); Carbon Dioxide 31 mmol/L (22-29); Chloride 101 mmol/L (98-107); Creatinine Clr Calc Pharmacy 74.0515; Globulin 2.5 g/dL (1.3-4.6); Glucose 117 mg/dL (65-115); Osmolality Calculated 284 mOsm/kg (285-295); Potassium 4.1 mmol/L (3.5-5.1); Sodium 137 mmol/L (136-145); Total Bilirubin 1.6 mg/dL (0.15-1.2); Total Protein 6.7 g/dL (6.6-8.7)
[2022-12-09 12:39] VITALS: BP 130/59; PULSE 67; O2SAT 99
--- NOTE | 2022-12-09 12:46 | ECG_ITS ---
[facility] Test Date: 2022-12-09 Pat Name: Russell Hancock Department: Room: Gender: Male Hydropress Operator: : 1950 Requested By: Franko Feng Order Number: [id number] Puma MD: Vasiliy Mckenna M.D. Measurements Intervals Bayard Rate: 58 P: 83 MD: 150 QRS: 86 QRSD: 86 T: 83 QT: 421 QTc: 415 Interpretive Statements SINUS BRADYCARDIA Compared to ECG 10/31/2022 15:10:10 Sinus rhythm no longer present Electronically Signed On 12-09-2022 14:46:17 CDT by Vasiliy Mckenna M.D. [email or web address]/store/[id number]
[2022-12-09 13:01] LABS: Glucose Point of Care 99 mg/dL (70-110)
[2022-12-09 14:07] VITALS: BP 153/83; PULSE 83; O2SAT 97
--- NOTE | 2022-12-10 09:50 | DCPLANNER ---
sales relationship manager had message to schedule an outpatient MRI, carotid duplex, echo cardiogram, and a 48 hour halter monitor for patient and a follow up with neurology. sales relationship manager is unable to order the outpatient tests at this time, due to patient having [employer] insurance. sales relationship manager did send patients information to the front office staff at neurology, where it will be reviewed and clinic will call patient with appointment information.
== END 2022-12-09 14:00 | disposition home or self-care (01) ==
PROVIDERS: Emergency Provider Family Medicine; PCP Family Medicine
DX: G45.9 Transient cerebral ischemic attack, unspecified (principal); Z79.82 Long term (current) use of aspirin; I10 Essential (primary) hypertension; Z85.46 Personal history of malignant neoplasm of prostate
CPT/HCPCS: 36416; 70450; 80053; 82962; 85025; 85610; 85730; 93005; 99285

== ENCOUNTER 2023-01-05 13:38 | Outpatient (CLI) | payer OTHER, SELFPAY ==
--- NOTE | 2023-01-05 13:45 | USCV_ITS ---
Russell Hancock Age: 72 Gender: M : 1950 Exam Date: 01/05/2023 14:34 Ordering Phys: Susy Cantrell MD Technologist: KEVIN [place]am [place] [facility] [place]ication: TIA Risk Factors: Previous Vascular Surgery: Right Brachial BP: / Left Brachial BP: / Right Left Velocity (cm/s) Spectral Plaque Velocity (cm/s) Spectral Plaque Syst/Diast Broadening Syst/Diast Broadening 97.20/ 16.20 Prox CCA 138.90/ 29.20 120.10/30.00 Mid CCA 163.90/ 44.50 88.20/ 25.30 Distal CCA 109.70/ 33.30 99.20/ 34.20 Prox ICA 91.70 / 33.30 110.30/37.50 Mid ICA 125.00/ 38.90 98.10/ 38.60 Distal ICA 102.80/ 40.30 134.50 ECA 138.90 0.92 ICA/CCA 0.76 Antegrade Vertebral Antegrade 41.40/ 15.10 cm/s 52.00/ 19.90 cm/s Tri Subclavian Tri 172.5 91.10 0 CONCLUSIONS Right ICA stenosis <50%. Moderate calcified atheromatous plaque right carotid bulb/ICA. Left ICA stenosis <50%. Moderate calcified atheromatous plaque left carotid bulb/ICA. Intimal thickening in the common carotid arteries and internal carotid arteries bilaterally. Normal antegrade Doppler flow noted in the right vertebral artery. Normal antegrade Doppler flow noted in the left vertebral artery. Sudeep Milner MD (Electronically Signed) Final Date: 06 January 2023 13:28 S
== END 2023-01-05 13:39 | disposition home or self-care (01) ==
LOC: RAD 13:39
PROVIDERS: PCP Family Medicine; Visit Provider Family Medicine
DX: G45.9 Transient cerebral ischemic attack, unspecified (principal)
CPT/HCPCS: 93880

== ENCOUNTER → 2023-01-21 13:09 | Outpatient (BNVA) | payer OTHER, SELFPAY | PROVIDERS: PCP Family Medicine; Visit Provider Psychiatry & Neurology Neurology | DX: Z09 Encounter for follow-up examination after completed treatment for conditions other than malignant neoplasm (principal); G45.9 Transient cerebral ischemic attack, unspecified; I63.9 Cerebral infarction, unspecified | CPT/HCPCS: 99203 ==

== ENCOUNTER 2023-03-02 11:11 | Oncology outpatient (recurring) (ONCR) | payer OTHER, SELFPAY ==
[2023-02-09 18:16] LABS: Reticulocyte % 3.1 % (0.5-2.0)
[2023-02-09 18:17] LABS: Eosinophils % 0.5 %; Hematocrit 30.6 % (37-53); Lymphocytes # 0.8 10^3/uL (0.8-4.8); Lymphocytes % 42.1 %; Mean Corpuscular HGB Conc 32.7 g/dL (30-55); Mean Corpuscular Hemoglobin 36.2 pg (27-33); Mean Corpuscular Volume 110.9 fl (82-101); Mean Platelet Volume 12.1 fL (7.4-10.4); Monocytes # 0.1 10^3/uL (0.2-0.9); Monocytes % 7.2 %; Neutrophils % 49.2 %; Nucleated Red Blood Cells % 0 %; Platelet Count 113 10^3/cmm (157-399); Red Blood Count 2.76 10^6/uL (3.85-5.65); Red Cell Distribution Width 18.3 % (12.1-15.1); White Blood Count 1.95 10^3/uL (3.29-11.43)
[2023-02-09 18:24] LABS: Alanine Aminotransferase 12 U/L (0-41); Albumin Level 4.3 g/dL (3.5-5.2); Alkaline Phosphatase 111 U/L (40-130); Anion Gap 14.2 (5-19); Aspartate Amino Transferase 37 U/L (0-40); Blood Urea Nitrogen 12 mg/dL (8-23); Calcium 9.1 mg/dL (8.5-10.5); Carbon Dioxide 28 mmol/L (22-29); Chloride 101 mmol/L (98-107); Globulin 3.2 g/dL (1.3-4.6); Glucose 89 mg/dL (65-115); Lactate Dehydrogenase 812 U/L (135-225); Osmolality Calculated 287 mOsm/kg (285-295); Potassium 4.2 mmol/L (3.5-5.1); Sodium 139 mmol/L (136-145); Total Protein 7.5 g/dL (6.6-8.7)
[2023-02-09 18:40] LABS: Vitamin B12 489 pg/mL (232-1245)
[2023-02-09 19:14] LABS: Folate Level 10.8 ng/mL (4.5-32.2)
[2023-02-09 19:33] LABS: Slide Review Slide Review Perform
[2023-02-10 08:35] LABS: Neutrophils # 0.96 10^3/uL (1.8-7.7)
[2023-02-11 18:28] LABS: Prostate Specific Antigen < 0.014 ng/mL (0-4)
--- NOTE | 2023-03-02 14:59 | PC.NURSE ---
Patient educated on needing the mengingococcal vaccine 2 weeks prior to getting treatment. Patient states that he was not aware that he needed this. Dr Figueroa notified that patient did not receive vaccine and has not been educated on the drug, per patient. Dr Figueroa states to hold treatment until he gets the vaccine. Patient given written and verbal information on his local health department to get his meningcoccal vaccine. This nurse wrote out meningcoccal vaccine and highlight it for the patient to give to the health department. He verbalizes understanding. Also [facility] information printed on [employer] and given to patient with written instruction to call the office when he receives vaccine so we can schedule him in 2 weeks to get the drug. Patient verbalizes understanding. Office hours and number sheet given to patient as well.
== END 2023-03-05 23:59 | disposition home or self-care (01) ==
PROVIDERS: PCP Family Medicine; Visit Provider Internal Medicine
DX: Z53.9 Procedure and treatment not carried out, unspecified reason (principal)
CPT/HCPCS: 36415; 80053; 82607; 82746; 83010; 83615; 84153; 85025; 85045; 88184; 88185; 99214

== ENCOUNTER 2023-03-06 07:58 | Oncology outpatient (recurring) (ONCR) | payer OTHER, SELFPAY | END 2023-04-05 23:59 | disposition home or self-care (01) | PROVIDERS: PCP Family Medicine; Visit Provider Internal Medicine | DX: D59.5 Paroxysmal nocturnal hemoglobinuria [Marchiafava-Micheli] (principal); D46.Z Other myelodysplastic syndromes; Z79.899 Other long term (current) drug therapy | CPT/HCPCS: 99214 ==

== ENCOUNTER 2023-03-17 13:29 | Inpatient (IN) | payer OTHER, SELFPAY ==
[2023-03-17] VITALS (13 sets, daily range): BP systolic 123–148; BP diastolic 63–76; PULSE 56–110; RESP 9–19; TEMP 36.6–36.7; O2SAT 97–100; BMI 18.3
--- NOTE | 2023-03-17 13:40 | XR_ITS ---
WS: [id number] Exam: XR chest 1V portable [id number] Date/Time of Exam: 03/17/2023 1:42 PM Reason For Exam: dyspnea/cough Comparison 10/31/2022. The lungs are hyperinflated. Chronic changes of fibrosis and scarring in the upper lung zones. Small calcified pleural plaques are noted bilaterally. Stable appearing pleural thickening along the upper LEFT pleural cavity. Cardiomediastinal silhouette is unremarkable. Slight leftward deviation of the t rachea unchanged. Bony structures are intact. Asymmetric LEFT apical pleural thickening stable in [place]. IMPRESSION: 1. Pulmonary hyperinflation most likely indicating obstructive lung disease. 2. Chronic changes of interstitial fibrosis, pleural plaque formation and pleural thickening in the u pper lung zones as detailed above.
--- NOTE | 2023-03-17 13:41 | ED_ITS ---
HPI - General Adult General: Stated complaint: disoriented Time Seen by Provider: 03/17/23 13:40 Source: patient Mode of arrival: ambulatory History of Present Illness: 72-year-old male presents emergency room complaining of feeling disoriented Associated symptoms: Deny chest pain, dyspnea or rash Review of Systems Const: Denies: fever(s) or chills Card: Denies: chest pain Resp: Denies: dyspnea GI: Denies: abdominal pain : Denies: dysuria, urinary frequency or urinary urgency Musc: Denies: neck pain or back pain Skin/Breast: Denies: rash PFSH ED PFSH: Medical History MDS (myelodysplastic syndrome), high grade Paroxysmal nocturnal hemoglobinuria Hypertension History of autoimmune thrombocytopenia Prostate cancer Treated with brachytherapy (seed implants) Surgical History History of bronchoscopy (2017) Bronchoscopy/EBUS with FNA biopsies of right lower lobe and mediastinal lymph nodes Family History Brother Lung disease Stage 4 lung cancer - smoker Other CAD (coronary artery disease) Cancer Denies family history of Diabetes Clotting disorder Dementia Hyperlipidemia Psychiatric illness Chronic kidney disease (CKD) Suicide Anesthesia complication Bleeding disorder Stroke Social History Smoking and tobacco/nicotine status: never used tobacco/nicotine Alcohol intake: current Alcohol intake frequency: holidays/special occasions only Physical Exam Const: COMMON NORMALS: no acute distress GENERAL APPEARANCE: cooperative and comfortable ORIENTATION/CONSCIOUSNESS: Yes awake, Yes oriented to person, Yes oriented to place and Yes oriented to time HENMT: COMMON NORMALS: normocephalic, atraumatic and hearing grossly normal bilaterally HEAD & SCALP: normocephalic and atraumatic Resp: COMMON NORMALS: normal respiratory effort, No retractions, No use of accessory muscles and clear to auscultation bilaterally AUSCULTATION: clear to auscultation bilaterally Cardio: COMMON NORMALS: regular rate, regular rhythm and No murmurs present (Cardio) RATE: regular rate RHYTHM: regular rhythm GI: COMMON NORMALS: Soft to palpation and No hepatosplenomegaly present AUSCULTATION: Yes normoactive bowel sounds PALPATION: Yes Soft to palpation, No Tenderness to palpation present (GI), No Guarding due to palpation present (GI) and Yes No hepatosplenomegaly present Extremity: COMMON NORMALS: normal to inspection, capillary refill normal, no clubbing, cyanosis or edema, no calf tenderness and no pedal edema Neuro: SENSORIUM/ORIENTATION: Yes oriented to person, Yes oriented to place an d Yes oriented to time Skin: COMMON NORMALS: no rashes or lesions noted GENERAL SKIN EXAM: no rashes or lesions noted Discharge Plan Discharge Condition: Stable Prescriptions: No Action cholecalciferol (vitamin D3) 10 mcg (400 unit) capsule 10 mcg PO DAILY tamsulosin 0.4 mg capsule 0.4 mg PO DAILY Spiriva with HandiHaler 18 mcg capsule, w/inhalation device 1 cap inhalation DAILY Qty: 60 3RF Rx Instructions: puncture 1 cap using device; one dose = 2 inhalations Aspir-81 81 mg Tablet,Delayed Release (Dr/Ec) 81 mg PO DAILY atorvastatin 40 mg tablet 40 mg PO DAILY Qty: 30 0RF Referrals: Susy Cantrell MD [Primary Care Provider] - Coding Level of Care Code ED Time Stamp Assembler for Chg Ahmet
--- NOTE | 2023-03-17 13:47 | CT_ITS ---
WS: [id number] CT HEAD TECHNIQUE: Noncontrast CT of the head obtained from the skullbase to the vertex. CLINICAL INFORMATION: ams COMPARISON: CT 12/09/2022 DLP: 999.[address] scans at [facility] use at least one of these dose optimization techniques: automated e xposure control; mA and/or kV adjustment per patient size (includes targeted exams where dose is matc hed to clinical indication); or iterative reconstruction. FINDINGS: No evidence of intracranial hemorrhage. Low-attenuation change within the LEFT posterior superior tem poral lobe has developed since prior examination with mild mass effect suspicious for subacute ischem ia. This could be further evaluated with MRI. Moderate small vessel changes with moderate parenchymal volume loss. Intracranial vascular calcificat ion. No extra-axial fluid collections. 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 Ex vacuo dilatation RIGHT posterior lateral ventricle. Incidental aamir cisterna ma gna. Vascular calcification. Mild mucosal thickening in the RIGHT mastoid air cells. Normal posterior nasopharynx. IMPRESSION: 1. No evidence of intracranial hemorrhage 2. Low-attenuation change within the LEFT posterior superior temporal lobe has developed since prior examination with mild mass effect suspicious for subacute ischemia. This could be further evaluated with MRI. 3. No other change since 12/09/2022
--- NOTE | 2023-03-17 13:52 | ECG_ITS ---
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 Measurements Intervals Kirvin Rate: 69 P: 82 SD: 144 QRS: 83 QRSD: 76 T: 74 QT: 409 QTc: 439 Interpretive Statements SINUS RHYTHM VOLTAGE CRITERIA FOR LVH [MEETS CRITERIA IN ONE OF: R(aVL), S(V1), R(V5), R(V5/V6)+S(V1)] Compared to ECG 12/09/2022 12:46:21 Left ventricular hypertrophy now present Sinus bradycardia no longer present Electronically Signed On 03-17-2023 13:52:53 PERSONAL LINES ACCOUNT MANAGER by Vasiliy Mckenna M.D. [email or web address] centerAbove Securityohio[email or web address].[employer]/store/[id number]
[2023-03-17 13:59] LABS: Glucose Point of Care 98 mg/dL (70-110)
--- NOTE | 2023-03-17 13:59 | W.ED.AMS ---
HPI - Altered Mental Status General: Chief Complaint: Altered Mental Status Stated Complaint: disoriented Time Seen by Provider: 03/17/23 13:40 Source: patient Mode of arrival: ambulatory Limitations: no limitations History of Present Illness: 72-year-old male who is here with his neighbor complaining of some confusion throughout the day. States that he has been having short-term memory loss like he is not able to find his keys he does not remember the year currently states that he just feels off. He denies any headaches he has no focal neurodeficits no slurred speech no difficulty walking denies any fevers. Review of Systems Const: Denies: fever(s), chills, body aches or change in appetite Eyes: Denies: blurry vision or eye discomfort ENMT: Denies: throat pain or dental pain Card: Denies: chest pain Resp: Denies: dyspnea GI: Denies: abdominal pain, nausea, vomiting or diarrhea Musc: Denies: neck pain or back pain Skin/Breast: Denies: rash Neuro: Reports: confusion; Denies: headache(s) PFS ED PFSH: Medical History MDS (myelodysplastic syndrome), high grade Paroxysmal nocturnal hemoglobinuria Hypertension History of autoimmune thrombocytopenia Prostate cancer Treated with brachytherapy (seed implants) Surgical History History of bronchoscopy (2017) Bronchoscopy/EBUS with FNA biopsies of right lower lobe and mediastinal lymph nodes Family History Brother Lung disease Stage 4 lung cancer - smoker Other CAD (coronary artery disease) Cancer Denies family history of Diabetes Clotting disorder Dementia Hyperlipidemia Psychiatric illness Chronic kidney disease (CKD) Suicide Anesthesia complication Bleeding disorder Stroke Social History Smoking and tobacco/nicotine status: never used tobacco/nicotine Alcohol intake: current Alcohol intake frequency: holidays/special occasions only Physical Exam Const: COMMON NORMALS: alert; negative for patient oriented x3 ORIENTATION/CONSCIOUSNESS: Yes oriented to person and Yes oriented to place; not oriented to time HENMT: COMMON NORMALS: normocephalic and atraumatic HEAD & SCALP: normocephalic and atraumatic Eye: COMMON NORMALS: Equal, round and reactive pupils present and EOMs intact bilaterally PUPIL: Yes Equal, round and reactive pupils present Neck/C-Spine: COMMON NORMALS: full ROM and supple Chest: COMMONS NORMALS: normal inspection of the chest and normal palpation of entire chest wall Resp: COMMON NORMALS: normal respiratory effort, No retractions, No use of accessory muscles and clear to auscultation bilaterally AUSCULTATION: clear to auscultation bilaterally Cardio: COMMON NORMALS: regular rate, regular rhythm and No murmurs present (Cardio) RATE: regular rate RHYTHM: regular rhythm GI: COMMON NORMALS: Normal to inspection, nondistended, normoactive bowel sounds present, Soft to palpation, non-tender and no masses PALPATION: Yes Soft to palpation Extremity: COMMON NORMALS: normal to inspection and full ROM Neuro: COMMON NORMALS: moves all extremities and no focal motor deficits; negative for patient oriented x3 SENSORIUM/ORIENTATION: Yes alert, Yes oriented to person, Yes oriented to place and No oriented to time CRANIAL NERVES: Yes CN normal except as noted SPEECH: speech normal GAIT: Yes Normal gait present MOTOR EXAM: 5/5 motor strength present throughout Psych: COMMON NORMALS: mental status grossly normal, Normal thought process present and cooperative THOUGHT PROCESS: Normal thought process present Skin: COMMON NORMALS: no rashes or lesions noted and no wounds GENERAL SKIN EXAM: no rashes or lesions noted Course Vital Signs: Vital signs: Vital Signs Temperature 98.1 F 03/17/23 13:41 Pulse Rate 67 03/17/23 15:01 Respiratory Rate 15 03/17/23 15:01 Blood Pressure 141/75 03/17/23 15:01 Pulse Oximetry 99 03/17/23 15:01 Oxygen Delivery Me thod Room Air 03/17/23 15:01 MDM - Altered Mental Status Medical Decision Making Patient presents here with confusion head CT showed likely subacute ischemia patient's last normal was yesterday he is out of the lytic window. He does have an elevated troponin he has not had any chest pain we will continue to trend up spoken to hospitalist and will admit Medical Records I reviewed the patient's medical records. Lab Data I reviewed the patient's lab results. 03/17/23 14:10 03/17/23 14:10 Laboratory Results WBC 3.27 10^3/uL (3.29-11.43) L 03/17/23 14:10 RBC 2.98 10^6/uL (3.85-5.65) L 03/17/23 14:10 Hgb 10.80 g/dL (11.27-16.99) L 03/17/23 14:10 Hct 32.3 % (37-53) L 03/17/23 14:10 MCV 108.4 fl (82-101) H 03/17/23 14:10 MCH 36.2 pg (27-33) H 03/17/23 14:10 MCHC 33.4 g/dL (30-55) 03/17/23 14:10 RDW 17.7 % (12.1-15.1) H 03/17/23 14:10 Plt Count 118 10^3/cmm (157-399) L 03/17/23 14:10 MPV 11.7 fL (7.4-10.4) H 03/17/23 14:10 Neut % (Auto) 74.1 % 03/17/23 14:10 Lymph % (Auto) 18.3 % 03/17/23 14:10 [place] % (Auto) 7.0 % 03/17/23 14:10 Eos % (Auto) 0.0 % 03/17/23 14:10 Baso % (Auto) 0.3 % 03/17/23 14:10 Neut # (Auto) 2.42 10^3/uL (1.8-7.7) 03/17/23 14:10 Lymph # (Auto) 0.6 10^3/uL (0.8-4.8) L 03/17/23 14:10 [place] # (Auto) 0.2 10^3/uL (0.2-0.9) 03/17/23 14:10 Eos # (Auto) 0.0 10^3/uL (0.0-0.8) 03/17/23 14:10 Baso # (Auto) 0.0 10^3/uL (0.0-0.1) 03/17/23 14:10 Nucleated RBC % (auto) 0 % 03/17/23 14:10 Nucleated RBCs # 0.0 /100WBC 03/17/23 14:10 PT 13.70 SECONDS (12.1-14.9) 03/17/23 14:10 INR 1.02 (0.8-1.2) 03/17/23 14:10 Sodium 137 mmol/L (136-145) 03/17/23 14:10 Potassium 4.4 mmol/L (3.5-5.1) 03/17/23 14:10 Chloride 99 mmol/L (98-107) 03/17/23 14:10 Carbon Dioxide 28 mmol/L (22-29) 03/17/23 14:10 Anion Gap 14.4 (5-19) 03/17/23 14:10 BUN 11 mg/dL (8-23) 03/17/23 14:10 Creatinine 0.7 mg/dL (0.7-1.2) 03/17/23 14:10 GFR Calculation Not Reportable 03/17/23 14:10 Glucose 109 mg/dL (65-115) 03/17/23 14:10 POC Glucose 98 mg/dL (70-110) 03/17/23 13:57 Calculated Osmolality 284 mOsm/kg (285-295) L 03/17/23 14:10 Calcium 9.5 mg/dL (8.5-10.5) 03/17/23 14:10 Magnesium 1.9 mg/dL (1.7-2.3) 03/17/23 14:10 Total Bilirubin 1.7 mg/dL (0.15-1.2) H 03/17/23 14:10 AST 40 U/L (0-40) 03/17/23 14:10 ALT 21 U/L (0-41) 03/17/23 14:10 Alkaline Phosphatase 127 U/L (40-130) 03/17/23 14:10 Ammonia 14 umol/L (16-60) L 03/17/23 14:10 Troponin T Baseline 207 ng/L (0-15) H* 03/17/23 14:10 Total Protein 7.6 g/dL (6.6-8.7) 03/17/23 14:10 Albumin 4.3 g/dL (3.5-5.2) 03/17/23 14:10 Globulin 3.3 g/dL (1.3-4.6) 03/17/23 14:10 TSH 2.04 uIU/mL (0.27-4.20) 03/17/23 14:10 Urine Color Yellow (Yellow) 03/17/23 14:30 Urine Appearance Clear (CLEAR) 03/17/23 14:30 Urine pH 6 (5-7) 03/17/23 14:30 Ur Specific [place] 1.015 (1.005-1.030) 03/17/23 14:30 Urine Protein Trace (Negative) 03/17/23 14:30 Urine Glucose (UA) Norm (Normal) 03/17/23 14:30 Urine Ketones 1+ (Negative) H 03/17/23 14:30 Urine Blood 2+ (Negative) H 03/17/23 14:30 Urine Nitrate Negative (Negative) 03/17/23 14:30 Urine Bilirubin Neg (Negative) 03/17/23 14:30 Urine Urobilinogen Norm mg/dL (Negative) 03/17/23 14:30 Ur Leukocyte Esterase Negative (Negative) 03/17/23 14:30 Amorphous Sediment Not Reportable 03/17/23 14:30 Ethyl Alcohol < 10 mg/dL (0-10) 03/17/23 14:10 All radiology interpretation(s) finalized by discharge EKG Data EKG 1: I personally reviewed and interpreted this EKG as follows: EKG interpretation date: 03/17/23 EKG interpretation time: 13:52 Interpretation: nsr hr [address] or t wave abnormalities qrs 76 qtc 428 Discharge Plan Discharge Patient Disposition: Admitted As Inpatient Clinical Impression: CVA (cerebral vascular accident) Condition: Stable Prescriptions: No Action cholecalciferol (vitamin D3) 10 mcg (400 unit) capsule 10 mcg PO DAILY tamsulosin 0.4 mg capsule 0.4 mg PO DAILY Spiriva with HandiHaler 18 mcg capsule, w/inhalation device 1 cap inhalation DAILY Qty: 60 3RF Rx Instructions: puncture 1 cap using device; one dose = 2 inhalations Aspir-81 81 mg Tablet,Delayed Release (Dr/Ec) 81 mg PO DAILY atorvastatin 40 mg tablet 40 mg PO DAILY Qty: 30 0RF Referrals: Susy Cantrell MD [Primary Care Provider] - Patient Instructions: Altered Mental Status (ED) Coding Level of Care Code ED Inpatient Services Rn for [facility] Ahmet
[2023-03-17 14:19] LABS: Basophils % 0.3 %; Hematocrit 32.3 % (37-53); Lymphocytes # 0.6 10^3/uL (0.8-4.8); Lymphocytes % 18.3 %; Mean Corpuscular HGB Conc 33.4 g/dL (30-55); Mean Corpuscular Hemoglobin 36.2 pg (27-33); Mean Corpuscular Volume 108.4 fl (82-101); Mean Platelet Volume 11.7 fL (7.4-10.4); Monocytes # 0.2 10^3/uL (0.2-0.9); Neutrophils # 2.42 10^3/uL (1.8-7.7); Neutrophils % 74.1 %; Nucleated Red Blood Cells % 0 %; Platelet Count 118 10^3/cmm (157-399); Red Blood Count 2.98 10^6/uL (3.85-5.65); Red Cell Distribution Width 17.7 % (12.1-15.1); White Blood Count 3.27 10^3/uL (3.29-11.43)
[2023-03-17 14:35] LABS: Ammonia 14 umol/L (16-60)
[2023-03-17 14:39] LABS: INR 1.02 (0.8-1.2)
[2023-03-17 14:40] LABS: Troponin(5th) Baseline 207 ng/L (0-15)
[2023-03-17 14:47] LABS: Alanine Aminotransferase 21 U/L (0-41); Albumin Level 4.3 g/dL (3.5-5.2); Alcohol Level < 10 mg/dL (0-10); Alkaline Phosphatase 127 U/L (40-130); Anion Gap 14.4 (5-19); Aspartate Amino Transferase 40 U/L (0-40); Blood Urea Nitrogen 11 mg/dL (8-23); Calcium 9.5 mg/dL (8.5-10.5); Carbon Dioxide 28 mmol/L (22-29); Chloride 99 mmol/L (98-107); Globulin 3.3 g/dL (1.3-4.6); Glucose 109 mg/dL (65-115); Magnesium 1.9 mg/dL (1.7-2.3); Osmolality Calculated 284 mOsm/kg (285-295); Potassium 4.4 mmol/L (3.5-5.1); Sodium 137 mmol/L (136-145); Thyroid Stimulating Hormone 2.04 uIU/mL (0.27-4.20); Total Bilirubin 1.7 mg/dL (0.15-1.2); Total Protein 7.6 g/dL (6.6-8.7)
[2023-03-17] MEDS: aspirin 81 mg Chew Tablet 324 MG PO (14:55)
[2023-03-17 15:23] LABS: Add Urine Microscopic? YES; Bilirubin Urine Neg (Negative); Blood Urine 2+ (Negative); Glucose Urine UA Norm (Normal); Ketones Urine 1+ (Negative); Leukocyte Esterase Urine Negative (Negative); Nitrate Urine Negative (Negative); Protein Urine Trace (Negative); Specific Gravity, Urine 1.015 (1.005-1.030); Urine Appearance Clear (CLEAR); Urine Color Yellow (Yellow); Urobilinogen Urine Norm (Negative); pH Urine 6 (5-7)
[2023-03-17 15:28] LABS: Amorphous Sediment Urine 1+ /hpf; Bacteria Urine TRACE /hpf; Mucus Urine 1+ /hpf; RBC Urine 0-4 /hpf (0-2); Squamous Epithelial Cell Urine 0-4 /hpf (0-5); WBC Urine 0-4 /hpf (0-5)
[2023-03-17 15:29] LABS: Add Urine Culture? No
--- NOTE | 2023-03-17 15:40 | ECG_ITS ---
[facility] Test Date: 2023-03-17 Pat Name: Russell Hancock Department: Room: Gender: Male Qa Tester: : 1950 Requested By: Franko Feng Order Number: [id number] Puma MD: Vasiliy Mckenna M.D. Measurements Intervals Crane Rate: 60 P: 82 MI: 155 QRS: 84 QRSD: 77 T: 76 QT: 438 QTc: 439 Interpretive Statements SINUS RHYTHM VOLTAGE CRITERIA FOR LVH [MEETS CRITERIA IN ONE OF: R(aVL), S(V1), R(V5), R(V5/V6)+S(V1)] Compared to ECG 03/17/2023 13:52:00 No significant changes Electronically Signed On 03-17-2023 16:54:20 WORK[employer] COMPENSATION PARALEGAL by Vasiliy Mckenna M.D. [id number]
--- NOTE | 2023-03-17 15:41 | PC.PHAR ---
[facility]- PT IS ALTERED AND UNABLE TO VERIFY MEDICATIONS- FAXED AT 1:55, 2:30 AND AGAIN AT 3:40PM
[2023-03-17 16:29] LABS: Troponin 5 2HR Delta 19.4 ABS# (0-10)
[2023-03-17 16:30] LABS: Troponin 5 2HR 226.4 ng/L (0-15)
--- NOTE | 2023-03-17 20:34 | PC.NURSE ---
patient tends to wander and seems confused of surroundings. oriented to room and nurse notified
[2023-03-17 20:48] LABS: Troponin 5 6HR 222.6 ng/L (0-15); Troponin 5 6HR Delta 15.6 ng/L (0-12)
--- NOTE | 2023-03-17 21:08 | USCV_ITS ---
CharlyShasta mendozaig Age: 72 Gender: M : 1950 Exam Date: 03/17/2023 21:56 Ordering Phys: Yennifer Laguerre MD Technologist: SALVATORE [place] [facility] [place]: NSTEMI admitted for confusion / memory loss BP: 141 / 76 HR: 95 Rhythm: Sinus Technical Quality: Good MEASUREMENTS (Male / Female) Normal Values 2D ECHO LV Diastolic Diameter PLAX 4.1 cm 4.2 - 5.9 / 3.9 - 5.3 cm LV Systolic Diameter PLAX 2.7 cm IVS Diastolic Thickness 0.9 cm 0.6 - 1.0 / 0.6 - 0.9 cm IVS Systolic Thickness 1.5 cm LVPW Diastolic Thickness 1.0 cm 0.6 - 1.0 / 0.6 - 0.9 cm LVPW Systolic Thickness 1.4 cm LVOT Diameter 1.9 cm LV Ejection Fraction 2D Teich 62.7 % LV Ejection Fraction MOD 2C 64.5 % LV Ejection Fraction 2C AL 65.9 % LA Diameter 3.0 cm LA Width 3.1 cm LA Height 4.2 cm RA Width 3.3 cm RA Height 4.2 cm Aorta at Sinotubular Diameter 2.9 cm IVC Diameter 0.9 cm M-MODE Aortic Annulus Diameter 2.6 cm LA Ao Ratio MM 1.2 MV E Point Septal Separation 0.6 cm DOPPLER AV Peak Velocity 104.0 cm/s LVOT Peak Velocity 85.0 cm/s AV Area Cont Eq vti 2.1 cm squared AV Area Cont Eq pk 2.3 cm squared MV Area PHT 3.6 cm squared Mitral E to A Ratio 0.9 MV E' Velocity 40.5 cm/s Mitral E to MV E' Ratio 10.3 Mitral E to LV E' Lateral Ratio 11.1 Mitral E to LV E' Septal Ratio 9.7 TR Peak Velocity 215.0 cm/s TR Peak Gradient 18.5 mmHg TV Peak E Velocity 52.0 cm/s Right Atrial Pressure 5.0 mmHg Pulmonary Artery Systolic Pressu 23.5 mmHg PV Peak Velocity 89.0 cm/s RV Acceleration Time 0.2 s RV Ejection Time 0.3 s RV AcT/ET 0.5 FINDINGS Left Ventricle Normal left ventricular size an LV EF of 50-55 % (visual). No regional wall motion abnormalities. Grade I/IV diastolic dysfunction (abnormal relaxation filling pattern), normal to mildly elevated filling pressures. Mildly visibility of the anteroseptal and apical lateral segments Right Ventricle The right ventricle is normal in size and function. Right Atrium The right atrium is normal in size. Left Atrium The left atrium is normal in size. Mitral Valve Thickened mitral valve. Moderate mitral valve regurgitation. Aortic Valve Thickened aortic valve. Tricuspid Valve [id number] tricuspid valve regurgitation. Estimated pulmonary artery peak systolic pressure 24 mmHg Pulmonic Valve Trace to mild pulmonary valve regurgitation. Pericardium No pericardial effusion. Aorta Normal ascending aorta dimension. IVC The inferior vena cava appears normal. CONCLUSIONS Normal left ventricular size an LV EF of 50-55 % (visual). No regional wall motion abnormalities. Grade I/IV diastolic dysfunction (abnormal relaxation filling pattern), normal to mildly elevated filling pressures. Mildly visibility of the anteroseptal and apical lateral segments. [id number] tricuspid valve regurgitation. Estimated pulmonary artery peak systolic pressure 24 mmHg. Thickened mitral valve. Moderate mitral valve regurgitation. Thickened aortic valve. Trace to mild pulmonary valve regurgitation. There is no pericardial effusion. There are no intracardiac masses. No similar previous studies are available for comparison Dr Morteza Larson MD [facility] (Electronically Signed) Final Date: 18 March 2023 12:13 S
--- NOTE | 2023-03-17 21:11 | USCV_ITS ---
Russell Hancock Age: 72 Gender: M : 1950 Exam Date: 03/17/2023 21:24 Ordering Phys: Yennifer Laguerre MD Technologist: SALVATORE Exam Location: [facility] – [place] Indication: confusion, memory loss, no acute findings on head CT. Never smoked, No DM. Risk Factors: confusion, memory loss, no acute findings on head CT. Never smoked, No DM. Previous Vascular Surgery: None Right Brachial BP: 141 / 76 Left Brachial BP: / Right Left Velocity (cm/s) Spectral Plaque Velocity (cm/s) Spectral Plaque Syst/Diast Broadening Syst/Diast Broadening 70.60/ 13.20 None None Prox CCA 104.70/ 23.20 None None 87.10/ 20.90 None Homo Mid CCA 112.50/ 25.40 None Homo 72.80/ 18.70 Min Hetro Distal CCA 95.90 / 17.60 Min Homo 95.90/ 39.70 Min Homo Prox ICA 81.90 / 28.10 Min Homo 91.50/ 37.50 Min Homo Mid ICA 102.90/ 35.90 Min Homo 99.20/ 34.50 Min Homo Distal ICA 125.70/ 43.00 Min Homo 92.60 None Homo ECA 51.90 None Homo 1.14 ICA/CCA 1.12 Antegrade Vertebral Antegrade 32.80/ 10.90 cm/s 41.90/ 13.20 cm/s Tri Subclavian Tri 95.80 108.1 0 CONCLUSIONS Right ICA stenosis <50%. Mild atheromatous plaque right carotid bulb/ICA. Left ICA stenosis <50%. Mild atheromatous plaque left carotid bulb/ICA. Normal antegrade Doppler flow noted in the right vertebral artery. Normal antegrade Doppler flow noted in the left vertebral artery. Sudeep Milner MD (Electronically Signed) Final Date: 18 March 2023 11:42 S
--- NOTE | 2023-03-17 21:33 | PM.HP ---
Providers/Chief Complaint Admitting Physician: Alivia Posadas MD Primary Care Provider: Susy Cantrell MD Chief Complaint: disoriented History of Present Illness History obtained primarily from chart review Russell Hancock is a 72 yo man w/ Prostate cancer s/p brachytherapy w/ seed implants, High grade Myelodysplastic Syndrome & Paroxysmal Nocturnal Hemoglobinuria pending treatment initiation, who presented to [facility]'s ED on 03/17/2023 with complaints of confusion and short term memory loss, such as not remembering the year or not being able to find his keys, throughout the day. When I spoke to the patient, he is able to tell me his name. He knows that he is in the hospital in [place], but he does not know the name of the hospital. He knows that it is [facility], but he does not rembmer the year. He tells me that he came to the hospital for a heart attack. When asked who informed him that he was a heart attack, He states that he assumes that this was what hat he was told. He does not speak on full sentences, but he will answer directed yes or no questions, such as the review of systems questioning. He denies fever, chills, visual disturbances, difficulty swallowing, CP, palpitations, lightheadedness, headaches, dizziness, muscle aches or joint pain, anxiety, depression, suicidal or homicidal ideation. He endorses shortness of breath, denies coughing or wheezing. In the ED, he had 1 episode of tachycardia. His initial EKG showed NSR, with no ST changes, QTc of 439, and LVH. His initial Trop T was 207, with repeats of 226.4 and 222.6. His TSH was 2.04, his head CT showed no evidence of intracranial hemorrhage, but it did show concern for subacute ischemia in the left posterior superior temporal lobe. His CXR showed findings concerning for obstructive lung disease and chronic changes of interstitial fibrosis, pleural plaque formation and pleural thickening in the upper lung zones. Review of Systems Const: Denies: fever(s) or chills Eyes: Reports: change in vision; Denies: blurry vision ENMT: Reports: other (no difficulty swallowing); Denies: ear or mastoid pain, ear discharge, nasal discharge or nasal congestion Card: Denies: chest pain, palpitations or lightheadedness Resp: Reports: dyspnea; Denies: non-productive cough or wheezing GI: Denies: abdominal pain, nausea, vomiting, hematemesis, diarrhea, constipation or hematochezia : Denies: difficulty urinating, dysuria, urinary urgency or hematuria Musc: Denies: joint pain or muscle cramps Skin/Breast: Denies: rash or new lesions Neuro: Reports: other (LOC); Denies: headache(s) or dizziness Psych: Denies: anxiety, depression, suicidal ideation or homicidal ideation Endo: Reports: cold intolerance; Denies: heat intolerance Zeke/Lymph: Denies: easy bruising or easy bleeding All/Imm: Denies: seasonal rhinorrhea or food intolerance Medications/Allergies Home Medications Medication Instructions Recorded Confirmed Last Taken Type cholecalciferol (vitamin D3) 10 10 mcg PO DAILY 03/17/22 03/17/23 10/31/22 History mcg (400 unit) capsule tamsulosin 0.4 mg capsule 0.4 mg PO DAILY 03/17/22 03/17/23 10/31/22 History aspirin 81 mg tablet,delayed 81 mg PO DAILY 10/31/22 03/17/23 10/31/22 History release tiotropium bromide 18 mcg capsule 1 cap inhalation DAILY #60 11/11/22 03/17/23 Unknown Rx with inhalation device (Spiriva inhalations with HandiHaler) atorvastatin 40 mg tablet 20 mg PO DAILY 03/17/23 03/17/23 Unknown History clopidogrel 75 mg tablet 75 mg PO DAILY 03/17/23 03/17/23 Unknown History Allergies Allergy/AdvReac Type Severity Reaction Status Date / Time No Known Allergies Allergy Verified 03/06/23 08:05 PFSH Acute PFSH: Medical History MDS (myelodysplastic syndrome), high grade Paroxysmal nocturnal hemoglobinuria Hypertension History of autoimmune thrombocytopenia Prostate cancer Treated with brachytherapy (seed implants) Surgical History History of bronchoscopy (2017) Bronchoscopy/EBUS with FNA biopsies of right lower lobe and mediastinal lymph nodes Family History Brother Lung disease Stage 4 lung cancer - smoker Other CAD (coronary artery disease) Cancer Denies family history of Diabetes Clotting disorder Dementia Hyperlipidemia Psychiatric illness Chronic kidney disease (CKD) Suicide Anesthesia complication Bleeding disorder Stroke Social History Smoking and tobacco/nicotine status: never used tobacco/nicotine Alcohol intake: current Alcohol intake frequency: holidays/special occasions only Vitals/I&O/Wt Last Vital Signs Temp 98 F 03/17/23 20:00 Pulse 85 03/17/23 20:00 Resp 19 H 03/17/23 20:00 BP 142/70 03/17/23 20:00 Pulse Ox 99 03/17/23 20:00 O2 Del Method Room Air 03/17/23 18:01 Weight last 48 hrs Weight 54.573 kg Physical Exam Const: GENERAL APPEARANCE: cooperative and comfortable NUTRITIONAL APPEARANCE: thin ORIENTATION/CONSCIOUSNESS: Yes awake, Yes oriented to person and Yes confused HENMT: HEAD & SCALP: normocephalic and atraumatic EXTERNAL EAR: Yes external ears normal MOUTH: Normal oral and palatal mucosa present THROAT: posterior oropharynx normal Eye: CONJUNCTIVA: Yes conjunctivae normal PUPIL: Yes Equal, round and reactive pupils present EOM: No EOM abnormal Neck/C-Spine: GENERAL: Yes normal visual inspection and Yes trachea midline THYROID: Thyroid normal CAROTIDS: No bruit Lymph: LYMPHATIC: No lymphadenopathy Resp: OTHER: CTAB with no wheezes rales or rhonchi Cardio: OTHER: Regular rate and rhythm with no murmurs, rubs, gallops or clicks. : OTHER: Bowel sounds positive, nontender, nondistended, no rigidity, no guarding, no rebound tenderness or hepatosplenomegaly appreciated. Extremity: NARRATIVE EXTREMITY EXAM: No clubbing, cyanosis, or pedal edema. Neuro: SENSORIUM/ORIENTATION: Yes Orientation impaired CRANIAL NERVES: Yes CN normal except as noted SPEECH: speech normal (But slow) SENSORY EXAM: No sensory level loss detected MOTOR EXAM: 5/5 motor strength present throughout and Normal motor muscle tone present throughout Psych: APPEARANCE: Yes unkempt ATTITUDE: Yes calm and Yes engaged SPEECH: Yes slow MOOD & AFFECT: Yes Flat affect present THOUGHT PROCESS: Other thought process findings present (Difficult to assess. Process and content) Skin: GENERAL SKIN EXAM: no rashes or lesions noted Data 03/18/23 03:10 12/13/23 03:10 A&P Assessment and plan (1) CVA (cerebral vascular accident): Qualifiers: CVA mechanism: unspecified Qualified Code(s): I63.9 - Cerebral infarction, unspecified (2) MDS (myelodysplastic syndrome), high grade: (3) Macrocytic anemia: (4) Pancytopenia: (5) Prostate cancer: Plan Russell Hancock is a 72 yo man w/ Prostate cancer s/p brachytherapy w/ seed implants, High grade Myelodysplastic Syndrome & Paroxysmal Nocturnal Hemoglobinuria pending treatment initiation, who presented to [facility]'s ED on 03/17/2023 with complaints of confusion and short term memory loss, such as not remembering the year or not being able to find his keys, throughout the day. In the ED, he had 1 episode of tachycardia. His initial EKG showed NSR, with no ST changes, QTc of 439, and LVH. His initial Trop T was 207, with repeats of 226.4 and 222.6. His TSH was 2.04, his head CT showed no evidence of intracranial hemorrhage, but it did show concern for subacute ischemia in the left posterior superior temporal lobe. His CXR showed findings concerning for obstructive lung disease and chronic changes of interstitial fibrosis, pleural plaque formation and pleural thickening in the upper lung zones. He was given Aspirin 324mg x 1, and Plavix 300mg x 1. #Altered Mental Status #Left posterior superior temporal lobe ischemia - Unclear etiology - MR brain, carotid duplex US, and TTE ordered - A1c of 4.8. Will order Lipid panel #NSTEMI: ACS protocol initiated. Telemetry monitoring ordered. Will consult Cardiology in the AM. #UA w/ bacteriuria: F/u UCx. #High grade Myelodysplastic Syndrome & Paroxysmal Nocturnal Hemoglobinuria: Per HEme/Onc notes, the patient has been hesitant to start treatment initiation. #Dyspnea: It may be why he is on Tiotropium. Will get a CTA chest/abd/pelvis to further evaluate his lungs and any potential occult malignancy. #BPH: F/u PSA. #Moderate vs Severe Protein Calorie Malnutrition: Will consult Lead Burner Supervisor for assessment and supplement recommendation. DVT ppx: On full dose Lovenox. Attestations Medical Necessity Statement*: I anticipate the patient to remain >2 midnights for stroke and NSTEMI work up. Coding Level of Care Code 92557 Diagnoses CVA (cerebral vascular accident) I63.9 CVA mechanism: unspecified MDS (myelodysplastic syndrome), high grade D46.Z Macrocytic anemia D53.9 Pancytopenia D61.818 Prostate cancer C61 Time Spent (min) 76 Comment TIme spent on chart review, patient interview/exam, lab/image review, and plan formulation
[2023-03-17] MEDS: sodium chloride 0.9% 1,000 ML 75 ML IV (22:19)
[2023-03-17] MEDS: clopidogrel 300 mg Tablet PO (22:19)
[2023-03-17] MEDS: enoxaparin 100 mg/mL Syringe 50 MG SUBCUT (22:19)
[2023-03-17 22:30] LABS: ABG PCO2 41.5 mmHg (35-45); ABG PH Result 7.46 (7.35-7.45); Arterial Blood Gas Hematocrit 31.8 % (42-52); Base Excess ABG 5.2 mmol/L (-2.0-2.0); Blood Gas Allen Test Pos; Blood Gas Sample Site Radial, left; Blood Gas Sample Type Arterial; HCO3 ABG 29.5 mmol/L (22-26); Oxygen Device ROOM AIR; PO2 ABG 91.7 mmHg (80.0-100.0)
[2023-03-17 23:39] LABS: Ammonia 45 umol/L (16-60)
[2023-03-17 23:49] LABS: Procalcitonin 0.03 ng/mL (0-0.5); Thyroid Stimulating Hormone 4.07 uIU/mL (0.27-4.20)
[2023-03-18] VITALS (12 sets, daily range): BP systolic 118–153; BP diastolic 64–72; PULSE 59–78; RESP 15–18; TEMP 36.6–37.1; O2SAT 98–99
[2023-03-18] LABS: Alcohol Level < 10 mg/dL (0-10)
[2023-03-18 00:01] LABS: Estmated Average Glucose 91; Hemoglobin A1C 4.8 % (4.0-6.0)
[2023-03-18 01:11] LABS: Vitamin B12 391 pg/mL (232-1245)
[2023-03-18 03:47] LABS: Basophils % 0.3 %; Eosinophils % 0.3 %; Hematocrit 28.7 % (37-53); Lymphocytes # 1.1 10^3/uL (0.8-4.8); Lymphocytes % 38.4 %; Mean Corpuscular HGB Conc 33.4 g/dL (30-55); Mean Corpuscular Hemoglobin 36.2 pg (27-33); Mean Corpuscular Volume 108.3 fl (82-101); Mean Platelet Volume 12.6 fL (7.4-10.4); Monocytes # 0.2 10^3/uL (0.2-0.9); Monocytes % 6.1 %; Neutrophils # 1.61 10^3/uL (1.8-7.7); Neutrophils % 54.2 %; Nucleated Red Blood Cells % 0 %; Platelet Count 113 10^3/cmm (157-399); Red Blood Count 2.65 10^6/uL (3.85-5.65); Red Cell Distribution Width 17.7 % (12.1-15.1); White Blood Count 2.97 10^3/uL (3.29-11.43)
[2023-03-18 04:09] LABS: Phosphorus 3.1 mg/dL (2.5-4.5)
[2023-03-18 04:10] LABS: Blood Urea Nitrogen 18 mg/dL (8-23); Calcium 8.9 mg/dL (8.5-10.5); Carbon Dioxide 26 mmol/L (22-29); Chloride 104 mmol/L (98-107); Glucose 98 mg/dL (65-115)
[2023-03-18 04:13] LABS: Slide Review Slide Review Perform
[2023-03-18 04:40] LABS: Alanine Aminotransferase 26 U/L (0-41); Albumin Level 3.6 g/dL (3.5-5.2); Alkaline Phosphatase 103 U/L (40-130); Aspartate Amino Transferase 47 U/L (0-40); Globulin 2.9 g/dL (1.3-4.6); Osmolality Calculated 292 mOsm/kg (285-295); Sodium 140 mmol/L (136-145); Total Protein 6.5 g/dL (6.6-8.7)
--- NOTE | 2023-03-18 07:00 | MR_ITS ---
WS: [id number] MRI BRAIN WITHOUT CONTRAST HISTORY: CVA COMPARISON: Noncontrast CT head 03/17/2023 TECHNIQUE: Diffusion imaging, multiplanar T1, T2 and FLAIR imaging obtained. Acute moderate size infarct involving the medial posterior LEFT temporal lobe corresponding to the CT findings. There are also a few additional smaller lacunar infarcts in the RIGHT cerebellum and in th e more posterior LEFT temporal lobe. There is a large remote infarct involving the posterior RIGHT parieto-occipital region with volume lo ss, encephalomalacia and gliosis. Corresponding ex vacuo dilatation of the RIGHT lateral ventricle. S ignificant volume loss and atrophy associated with the prior large infarct. Mild ischemic changes bilaterally in the robbie. Additional remote infarct in the posterior LEFT fronta l lobe with encephalomalacia and volume loss. No hemorrhage. Very slight dilatation of the lateral ventricles. Incidental aamir cisterna magna is reidentified. Dural venous sinuses and [place] demonstrate no abnormality on this unenhanced studies. Norm al flow voids. Paranasal sinuses: Clear. Mastoid air cells: Normal. Calvarium and scalp: Intact. IMPRESSION: 1. Moderate sized acute ischemic infarct in the medial posterior LEFT temporal lobe corresponds to t he findings on the recent CT head. 2. There are additional smaller acute lacunar infarcts in the posterior LEFT temporal lobe and also the RIGHT cerebellum. Due to the separate arterial distributions consider central embolic event. 3. Large remote infarct RIGHT parietal occipital region with encephalomalacia and volume loss. 4. Additional smaller remote infarct in the posterior LEFT frontal lobe.
--- NOTE | 2023-03-18 07:56 | CT_ITS ---
WS: [id number] CTA HEAD AND NECK TECHNIQUE: Contrast enhanced CTA of the head and neck with coronal and sagittal reformatted images an d maximum intensity projection (MIP) images. NASCET criteria utilized. CLINICAL INFORMATION: Ischemia noted on CT head COMPARISON: CT head 03/17/2023 DLP: 987.[address] scans at [facility] use at least one of these dose optimization techniques: automated e xposure control; mA and/or kV adjustment per patient size (includes targeted exams where dose is matc hed to clinical indication); or iterative reconstruction. FINDINGS: Again seen is the suspected subacute infarct involving the posterior superior LEFT temporal lobe with mild associated mass effect on the adjacent ventricle. No evidence of intracranial hemorrh age. No hydrocephalus. Chronic cortical infarcts LEFT frontal and RIGHT parietal lobe with encephalom alacia. Cavernous carotid calcification. Mild parenchymal volume loss. Mastoid air cells and paranasa l sinuses are well aerated. This can be further evaluated with MRI. Normal posterior nasopharynx. Den demetri artifact degrades images at the tongue base. Fibrosis in the lung apices. RIGHT: RIGHT common carotid artery is patent. Moderate calcified atheromatous plaque RIGHT carotid bu lb extending into the ICA. RIGHT ICA is patent to the skull base. RIGHT ICA stenosis measures approxi mately 40%. LEFT: LEFT common carotid artery is patent. No significant LEFT ICA stenosis. Mild calcified atheroma tous plaque LEFT carotid bulb. LEFT ICA is patent to the skull base. INTRACRANIAL CTA: Codominant and patent vertebral arteries bilaterally. Basilar artery is patent. Normal vascularity to the LEFT FIRE SUPPRESSION CAPTAIN territory. Mild stenosis RIGHT P1-2 segment. Distal FIRE SUPPRESSION CAPTAIN vessels appear patent. Both ICAs are patent at the skull base. Cavernous carotid calcification. Patent anterior communicatin g artery. Normal vascularity to the ENRIQUE and MCA territories bilaterally. IMPRESSION: 1. Suspected subacute ischemia in the LEFT posterior temporal lobe with mild associated mass effect. This can be further evaluated with MRI. 2. RIGHT proximal ICA stenosis measuring approximately 40%. RIGHT ICA remains patent to the skull ba se. 3. No significant LEFT ICA stenosis. 4. Codominant and patent vertebral arteries bilaterally. Basilar artery is patent. 5. Moderate stenosis at the RIGHT P1-2 segment with decreased flow distally in the RIGHT FIRE SUPPRESSION CAPTAIN territo ry. Normal vascularity to the LEFT FIRE SUPPRESSION CAPTAIN territory. 6. Normal vascularity to the ENRIQUE and MCA territories bilaterally.
[2023-03-18 08:03] LABS: Troponin T (5th) Once 251 ng/L (0-15)
--- NOTE | 2023-03-18 08:03 | CT_ITS ---
WS: [id number] CTA CHEST ABDOMEN AND PELVIS TECHNIQUE: Noncontrast plus contrast enhanced CTA of the chest, abdomen, and pelvis with coronal and sagittal reformatted images and additional MIP Images. CLINICAL INFORMATION: confusion, possible pulmonary fibrosis COMPARISON: None. DLP: 654.[address] scans at [facility] use at least one of these dose optimization techniques: automated e xposure control; mA and/or kV adjustment per patient size (includes targeted exams where dose is matc hed to clinical indication); or iterative reconstruction. FINDINGS: CTA chest abdomen pelvis. Normal caliber thoracic aorta. No evidence of aortic dissection. Proximal main pulmonary arteries [place] ear normal. Normal caliber descending thoracic aorta. Normal caliber abdominal aorta. No aneurysm. Pr oximal common iliac arteries are patent. Mild stenosis at the celiac origin which remains patent. SMA is patent. Proximal renal arteries are patent without significant stenosis. WILLIAN is patent. Moderate chronic emphysematous changes. Fibrosis in the lung apices. Pleural plaques in both lung api shana. Traction bronchiectasis in the LEFT greater than RIGHT upper lobes. No evidence of honeycombing. Scattered areas of parenchymal fibrosis and subsegmental atelectasis in the LEFT upper lobe. Indeterminant ovoid pulmonary nodule LEFT lower lobe laterally measuring 1.3 cm. This appears stable since outside CT 08/06/2022 and 01/21/2022. Recommend continued surveillance with chest CT. No axillary lymphadenopathy. No mediastinal or hilar lymphadenopathy. No other suspicious pulmonary p arenchymal abnormalities. Small noncalcified nodule RIGHT lower lobe laterally measuring 5 mm unchang ed since 01/21/2022. Tiny noncalcified nodule RIGHT lower lobe laterally near the diaphragm Prostate brachytherapy seeds. Normal liver. Marked distention of the stomach with air-fluid level and food products. Normal spleen. Normal pancreatic parenchymal enhancement. Adrenal glands are normal. Normal renal parenchymal enhancement. No hydronephrosis. Normal gallbladder. Sigmoid diverticulosis. No evidence of high-grade small or large bowel obstruction. No adenopathy in the abdomen or pelvis. IMPRESSION: 1. No evidence of aortic dissection. Normal caliber abdominal and thoracic aorta. 2. Celiac and SMA are patent. Mild stenosis at the celiac origin. WILLIAN is patent. 3. Proximal renal arteries are patent. 4. 1.3 cm noncalcified ovoid nodule LEFT lower lobe laterally stable since outside study 01/22/2022. Recommend continued surveillance with 6 to 12-month chest CT follow-up. 5. Additional subcentimeter nodules described above. 6. Bronchiectasis in the upper lobes LEFT greater than RIGHT with scattered areas of fibrosis. No ho neycombing. 7. Fibrosis in the lung apices with pleural plaques 8. Prostate brachytherapy seeds. 9. Fluid distended stomach with air-fluid level. 10. No adenopathy in the abdomen or pelvis.
[2023-03-18] MEDS: aspirin 81 mg EC Tablet PO (08:08)
[2023-03-18] MEDS: clopidogrel 75 mg Tablet PO (08:08)
[2023-03-18] MEDS: pantoprazole DR 40 mg Tablet PO (08:08)
--- NOTE | 2023-03-18 08:08 | FL_ITS ---
WS: [id number] Exam: FL barium swallow modifd 02303 Date/Time of Exam: 03/18/2023 11:50 AM Reason For Exam: Other dysphagia Fluoroscopy time: 3min [id number] minutes # of spot films: Modified barium swallow was performed in conjunction with the speech therapy service. Oral pharyngeal phase of swallowing was normal. The patient tolerated all consistencies of barium mix ture foodstuffs without penetration or aspiration. The patient swallowed a barium tablet without diff iculty. IMPRESSION: 1. Unremarkable modified barium swallow test. A separate report and recommendations will follow from the speech therapy service.
[2023-03-18 08:34] LABS: Amphetamines Screen Urine Negative (Negative); Barbiturates Screen Urine Negative (Negative); Benzodiazepines Screen Urine Negative (Negative); Cocaine Screen Urine Negative (Negative); Opiate Screen Urine Negative (Negative); PCP Screen Urine Negative (Negative); THC Screen Urine Positive (Negative)
[2023-03-18 08:38] LABS: Chol HDL Ratio 2.54 mg/dL (1.0-5.00); Cholesterol 150 mg/dL (0-200); HDL Cholesterol 59 mg/dL (60-100); LDL Cholesterol Calculated 76 mg/dL (50-129); LDL HDL Ratio 1.29 RATIO (0.00-3.22); Triglycerides 77 mg/dL (0-150)
[2023-03-18 08:51] LABS: Prostate Specific Antigen < 0.014 ng/mL (0-4)
[2023-03-18 09:32] LABS: INR 1.04 (0.8-1.2)
[2023-03-18 09:33] LABS: Partial Thromboplastin Time 25.1 SECONDS (23.9-36.7)
[2023-03-18] MEDS: iohexol 350 mg/mL 500 mL Btl (per mL) IV ×2 (09:34→09:40)
--- NOTE | 2023-03-18 10:11 | PC.CHAP ---
Pastoral Care Encounter/Spiritual Assessment Type of Contact [] Declined fellmongery worker visit [] Patient/Family/Request visit [] Outpatient visit [] Follow-up visit [] Physician referral [] Code/Alert [x] Routine visit [] Staff referral [] Actively dying [] Patient sleeping [] Family support [] [] Out of room [] Palliative care [] [] Receiving care in room [] Pre-surgical visit [] Trauma [] Long length of stay [] ICU visit [] Other: Relational/Emotional Strength [] Patient feels connected with others/family/visitors/staff [] Distress [] Loneliness/isolation [] Abandonment Spirituality of Patient [] Person of Kaya [] Attends Taoism of their Kaya [] Believes in Prayer [] Reads Bible or Pentecostalism materials [] There are Spiritual issues to be addressed Paint Laboratory Technician Interventions [x] Prayer [] Active listening [] Non-anxious presence [x] Spiritual/emotional support [] Crisis/trauma care [] Spiritual counseling [] Bereavement support [] Provided bereavement packet [] Provided Bible/devotional materials [] Provided toy/stuffed animal, coloring book to patient or family member [] Provided Communion [] Anointing/[place] [] Salvation [] Completed spiritual assessment [] Other: Impact on Illness or Injury [] Angry [] Fearful [] Anxious [] Often cries [] Exhaustion [] Unable to work [] Unable to attend voodoo [] Unable to walk/stand [] Unable to read [] Unable to drive [] Unable to eat/drink [] Unable to sleep [] Unable to be with family [] Patient intubated [] Other: Summary Time spent with patient 15 min
[2023-03-18] MEDS: enoxaparin 100 mg/mL Syringe 50 MG SUBCUT ×2 (11:02→21:32)
[2023-03-18] MEDS: sodium chloride 0.9% 1,000 ML 75 ML IV (11:02)
[2023-03-18 12:41] LABS: D Dimer 0.41 ug/mLFEU (0-0.59)
--- NOTE | 2023-03-18 15:50 | P.CONIM_ITS ---
Providers/Reason For Consult 2 Consulting Physician/Specialty*: Eyad Rios MD neurology and epilepsy Reason for Consult*: Abnormal head MRI suggestive of embolic strokes Attending Physician: Alivia Posadas MD Primary Care Provider: Susy Cantrell MD History of Present Illness History of Present Illness Russell Hancock is a 72 year old male with a history of myelodysplastic syndrome, bilateral carotid stenosis, paroxysmal nocturnal hemoglobinuria, lung nodule, macrocytic anemia, thrombocytopenia, pancytopenia, prostate cancer and remote large right parietal and occipital lobe infarction with encephalomalacia. The patient was reported to be at home and stated that he did not feel well and contacted her friend who brought the patient to [facility] emergency room secondary to altered mental status and confusion. Noncontrast head CT scan was obtained and revealed : Low-attenuation change within the LEFT posterior superior temporal lobe has developed since prior examination with mild mass effect suspicious for subacute ischemia. This could be further evaluated with MRI. The patient was also reported to have an elevated troponin level. Head MRI was obtained on 03/18/2023 suggestive of possible embolic events. Metabolic lab was obtained and revealed pancytopenia with WBC of 2.97 RBC 2.65, H&H 9.6 and 28.7 respectively. Platelet count 113,000. MCV elevated 108.3. Magnesium, comprehensive metabolic panel were within normal limits. Troponin was elevated 251. Cardiology was consulted. Neurology consult was obtained on 03/18/2023. According to Dr. Alivia Posadas, hospitalist, cardiology will evaluate the patient and determine if he should undergo a transesophageal echocardiogram. On neurological assessment, the patient was alert and in no apparent distress. There was no obvious focal weakness. The patient was oriented to his date of but could not tell me his age. He knew the month was March but did not know the year. Patient did know that it was Thursday and that he was in a hospital in [place]. The patient's brother and another family member who was at the patient's bedside in room 275 bed 1 on the [facility] floor. Past medical history: Remote right hemispheric stroke with encephalomalacia Myelodysplastic syndrome, high-grade Transient ischemic attack Bilateral carotid stenosis Lung nodule Paroxysmal nocturnal hemoglobinuria Thrombocytopenia Macrocytic anemia Pancytopenia Drug allergies: None Current home medications: Aspirin 81 mg p.o. daily Plavix 75 mg p.o. daily Tamsulosin 0.4 mg p.o. daily Vitamin D3 400 international units p.o. day Lipitor 20 mg p.o. day Tiotropium 18 mcg inhalation per day Habits: None Family history: Remarkable for a mother who experienced a stroke Remarkable for a brother who experienced a stroke Head MRI 03/18/2023 revealed IMPRESSION: 1. Moderate sized acute ischemic infarct in the medial posterior LEFT temporal lobe corresponds to the findings on the recent CT head. 2. There are additional smaller acute lacunar infarcts in the posterior LEFT temporal lobe and also the RIGHT cerebellum. Due to the separate arterial distributions consider central embolic event. 3. Large remote infarct RIGHT parietal occipital region with encephalomalacia and volume loss. 4. Additional smaller remote infarct in the posterior LEFT frontal lobe. CT angiogram of the head and neck 03/18/2023 revealed: IMPRESSION: 1. Suspected subacute ischemia in the LEFT posterior temporal lobe with mild associated mass effect. This can be further evaluated with MRI. 2. RIGHT proximal ICA stenosis measuring approximately 40%. RIGHT ICA remains patent to the skull base. 3. No significant LEFT ICA stenosis. 4. Codominant and patent vertebral arteries bilaterally. Basilar artery is patent. 5. Moderate stenosis at the RIGHT P1-2 segment with decreased flow distally in the RIGHT PEANUT VENDOR territory. Normal vascularity to the LEFT PEANUT VENDOR territory. 6. Normal vascularity to the ENRIQUE and MCA territories bilaterally. Carotid duplex study performed on 03/17/2023 revealed: Impression: Right ICA stenosis <50%. Mild atheromatous plaque right carotid bulb/ICA. Left ICA stenosis <50%. Mild atheromatous plaque left carotid bulb/ICA. Normal antegrade Doppler flow noted in the right vertebral artery. Normal antegrade Doppler flow noted in the left vertebral artery. Review of Systems 2 General: Reports: 10 or more systems reviewed and unremarkable except in HPI and below Medications/Allergies Home Medications Medication Instructions Recorded Confirmed Last Taken Type cholecalciferol (vitamin D3) 10 10 mcg PO DAILY 03/17/22 03/17/23 10/31/22 History mcg (400 unit) capsule tamsulosin 0.4 mg capsule 0.4 mg PO DAILY 03/17/22 03/17/23 10/31/22 History aspirin 81 mg tablet,delayed 81 mg PO DAILY 10/31/22 03/17/23 10/31/22 History release tiotropium bromide 18 mcg capsule 1 cap inhalation DAILY #60 11/11/22 03/17/23 Unknown Rx with inhalation device (Spiriva inhalations with HandiHaler) atorvastatin 40 mg tablet 20 mg PO DAILY 03/17/23 03/17/23 Unknown History clopidogrel 75 mg tablet 75 mg PO DAILY 03/17/23 03/17/23 Unknown History Allergies Allergy/AdvReac Type Severity Reaction Status Date / Time No Known Allergies Allergy Verified 03/06/23 08:05 Current Medications Generic Name Dose Route Start Last Admin Trade Name Coral PRN Reason Stop Dose Admin Aspirin 81 mg 03/18/23 09:00 03/18/23 08:08 Aspirin 81 Mg Ec Tablet PO 81 mg DAILY FLOYD Administration Clopidogrel Bisulfate 75 mg 03/18/23 09:00 03/18/23 08:08 Clopidogrel 75 Mg Tablet PO 75 mg DAILY FLOYD Administration Enoxaparin Sodium 50 mg 03/17/23 22:00 03/18/23 11:02 Enoxaparin 100 Mg/Ml Syringe 1 mg/kg (50 mg) 50 mg SUBCUT Administration Q12H FLOYD Sodium Chloride 1,000 mls @ 75 mls/hr 03/17/23 21:15 03/18/23 11:02 Sodium Chloride 0.9% IV 75 mls/hr .[id number] FLOYD Administration Pantoprazole Sodium 40 mg 03/18/23 09:00 03/18/23 08:[address] 40 Mg Tablet PO 40 mg DAILY FLOYD Administration PFSH Acute 2 PFSH: Medical History MDS (myelodysplastic syndrome), high grade Paroxysmal nocturnal hemoglobinuria Hypertension History of autoimmune thrombocytopenia Prostate cancer Treated with brachytherapy (seed implants) Surgical History History of bronchoscopy (2017) Bronchoscopy/EBUS with FNA biopsies of right lower lobe and mediastinal lymph nodes Family History Brother Lung disease Stage 4 lung cancer - smoker Other CAD (coronary artery disease) Cancer Denies family history of Diabetes Clotting disorder Dementia Hyperlipidemia Psychiatric illness Chronic kidney disease (CKD) Suicide Anesthesia complication Bleeding disorder Stroke Social History Smoking and tobacco/nicotine status: never used tobacco/nicotine Alcohol intake: current Alcohol intake frequency: holidays/special occasions only Vitals/I&O/Wt Last Vital Signs Temp 98.0 F 03/18/23 11:31 Pulse 71 03/18/23 11:31 Resp 17 03/18/23 11:31 BP 121/67 03/18/23 11:31 Pulse Ox 98 03/18/23 11:31 O2 Del Method Room Air 03/18/23 11:31 03/18/23 03/18/23 03/18/23 06:59 14:59 22:59 Intake Total 120 / 360 1313.75 / 1313.75 Balance 120 / 360 1313.75 / 1313.75 Weight last 48 hrs Weight 124 lb 4 oz Weight 120 lb 5 oz Physical Exam 2 Narrative: The patient is currently alert and oriented to his date of but not his age. Patient did not know the current year. He did know we are in the current month was February. He also knew the day of the week was Thursday and that he was in a hospital in [place]. Patient was cooperative. Head atraumatic. Neck supple. Cranial nerves II through XII grossly intact pupils 4 mm round reactive to light and accommodation. Extraocular movements intact. Motor testing 5/5 bilaterally. Deep tendon reflexes 2+ bilaterally. Plantar responses flexor bilaterally. There was no clonus. Sensory examination was intact to gross modalities. Throat clear. Lungs clear. Heart regular rhythm and rate extremities were negative for cyanosis or edema. Data 03/18/23 03:10 03/18/23 03:10 A&P Assessment and plan (1) Cerebral infarction: Impression: 1. Moderate sized acute ischemic infarct in the medial posterior LEFT temporal lobe corresponds to the findings on the recent CT head. 2. There are additional smaller acute lacunar infarcts in the posterior LEFT temporal lobe and also the RIGHT cerebellum. Due to the separate arterial distributions consider central embolic event. 3. Large remote infarct RIGHT parietal occipital region with encephalomalacia and volume loss. 4. Additional smaller remote infarct in the posterior LEFT frontal lobe. 5. Pancytopenia 6. Myelodysplastic syndrome, addressed by hematology 7. Macrocytic anemia 8. Prostate cancer Plan: 1. Recommend hematology consult for pancytopenia, and history of myelodysplastic syndrome and macrocytic anemia and to determine if patient should remain on Plavix and aspirin and Lipitor 2. Agree with cardiology consult to assess for cardiac etiology for embolic strokes 3. Keep head of bed elevated to 30 degrees as tolerated 4. Recommend cardiac telemetry monitoring to assess for cardiac arrhythmia 5. No hypotonic fluids to minimize potential for cerebral edema related to strokes Consult Attestations 2 Medical Necessity Statement: The patient was evaluated by neurology for reports of subacute strokes and altered mental status Coding Level of Care Code 59082 Diagnoses Cerebral infarction I63.9
--- NOTE | 2023-03-18 16:07 | P.CONIM_ITS ---
Providers/Reason For Consult 2 Consulting Physician/Specialty*: Dr. Junior, Cardiology Reason for Consult*: CVA, elevated troponin Attending Physician: Alivia Posadas MD Primary Care Provider: Susy Cantrell MD History of Present Illness History of Present Illness Russell Hancock is a 72 year old male with PMHx of MDS, PNH, prostate cancer presented to the hospital with confusion. CT head and MRI and multiple other imaging studies were conducted and reviewed. MRI head showed Moderate sized acute ischemic infarct in the medial posterior LEFT temporal lobe corresponds to the findings on the recent CT head. There are additional smaller acute lacunar infarcts in the posterior LEFT temporal lobe and also the RIGHT cerebellum. Due to the separate arterial distributions consider central embolic event. Large remote infarct RIGHT parietal occipital region with encephalomalacia and volume loss. Additional smaller remote infarct in the posterior LEFT frontal lobe. Echo with mildly reduced LV function LVEF of 50-55%. TDS study. Troponin T 207--> 226--> 223--> 251 (this am). EKG with sinus rhythm, voltage crieteria for LVH. Normal TSH and HbA1C. He denies any prior cardiac history. Review of Systems 2 Const: Denies: fever(s), chills, change in appetite, change in weight, fatigue or malaise Eyes: Denies: change in vision ENMT: Denies: throat pain, swelling of lips/tongue, oral sores, bleeding gums, nasal congestion or epistaxis Card: Denies: chest pain or edema Resp: Denies: dyspnea or chest congestion GI: Denies: abdominal pain, nausea, vomiting, hematemesis, heartburn, diarrhea, constipation, change in bowel habits, hematochezia or melena : Denies: dysuria, oliguria or hematuria Musc: Denies: back pain, extremity swelling, joint pain or muscle weakness Skin/Breast: Denies: rash or erythema Neuro: Denies: headache(s) Psych: Denies: anxiety, depression or irritability Endo: Denies: tired all the time Zeke/Lymph: Denies: easy bruising, easy bleeding, petechiae or purpura All/Imm: Denies: throat swelling, tongue swelling or acute wheezing Medications/Allergies Home Medications Medication Instructions Recorded Confirmed Last Taken Type cholecalciferol (vitamin D3) 10 10 mcg PO DAILY 12/03/2703/17/23 10/31/22 History mcg (400 unit) capsule tamsulosin 0.4 mg capsule 0.4 mg PO DAILY 03/17/22 03/17/23 10/31/22 History aspirin 81 mg tablet,delayed 81 mg PO DAILY 10/31/22 03/17/23 10/31/22 History release tiotropium bromide 18 mcg capsule 1 cap inhalation DAILY #60 11/11/22 03/17/23 Unknown Rx with inhalation device (Spiriva inhalations with HandiHaler) atorvastatin 40 mg tablet 20 mg PO DAILY 03/17/23 03/17/23 Unknown History clopidogrel 75 mg tablet 75 mg PO DAILY 03/17/23 03/17/23 Unknown History Allergies Allergy/AdvReac Type Severity Reaction Status Date / Time No Known Allergies Allergy Verified 03/06/23 08:05 Current Medications Generic Name Dose Route Start Last Admin Trade Name Freq PRN Reason Stop Dose Admin Aspirin 81 mg 03/18/23 09:00 03/18/23 08:08 Aspirin 81 Mg Ec Tablet PO 81 mg DAILY FLOYD Administration Clopidogrel Bisulfate 75 mg 03/18/23 09:00 03/18/23 08:08 Clopidogrel 75 Mg Tablet PO 75 mg DAILY FLOYD Administration Enoxaparin Sodium 50 mg 03/17/23 22:00 03/18/23 11:02 Enoxaparin 100 Mg/Ml Syringe 1 mg/kg (50 mg) 50 mg SUBCUT Administration Q12H FLOYD Sodium Chloride 1,000 mls @ 75 mls/hr 03/17/23 21:15 03/18/23 11:02 Sodium Chloride 0.9% IV 75 mls/hr .[id number] FLOYD Administration Pantoprazole Sodium 40 mg 03/18/23 09:00 03/18/23 08:[address] 40 Mg Tablet PO 40 mg DAILY FLOYD Administration PFSH Acute 2 PFSH: Medical History MDS (myelodysplastic syndrome), high grade Paroxysmal nocturnal hemoglobinuria Hypertension History of autoimmune thrombocytopenia Prostate cancer Treated with brachytherapy (seed implants) Surgical History History of bronchoscopy (2016) Bronchoscopy/EBUS with FNA biopsies of right lower lobe and mediastinal lymph nodes Family History Brother Lung disease Stage 4 lung cancer - smoker Other CAD (coronary artery disease) Cancer Denies family history of Diabetes Clotting disorder Dementia Hyperlipidemia Psychiatric illness Chronic kidney disease (CKD) Suicide Anesthesia complication Bleeding disorder Stroke Social History Smoking and tobacco/nicotine status: never used tobacco/nicotine Alcohol intake: current Alcohol intake frequency: holidays/special occasions only Vitals/I&O/Wt Last Vital Signs Temp 97.9 F 03/18/23 15:54 Pulse 71 03/18/23 15:54 Resp 16 03/18/23 15:54 BP 127/67 03/18/23 15:54 Pulse Ox 99 03/18/23 15:54 O2 Del Method Room Air 03/18/23 15:54 03/18/23 03/18/23 03/18/23 06:59 14:59 22:59 Intake Total 120 / 360 1313.75 / 1313.75 Balance 120 / 360 1313.75 / 1313.75 Weight last 48 hrs Weight 124 lb 4 oz Weight 120 lb 5 oz Physical Exam 2 Const: COMMON NORMALS: no acute distress, average body habitus, patient oriented x3, alert and well nourished GENERAL APPEARANCE: cooperative, comfortable, well kempt and well developed ORIENTATION/CONSCIOUSNESS: Yes oriented to person, Yes oriented to place and Yes oriented to time HENMT: COMMON NORMALS: normocephalic, atraumatic, hearing grossly normal bilaterally, external ears normal and Normal external nose present HEAD & SCALP: normocephalic and atraumatic FACE & SINUS: face symmetric NOSE: N ormal external nose present EXTERNAL EAR: Yes external ears normal Eye: COMMON NORMALS: EOMs intact bilaterally and conjunctivae normal A LIGNMENT: Yes alignment normal CONJUNCTIVA: Yes conjunctivae normal S CLERA: sclerae normal Neck/C-Spine: COMMON NORMALS: no JVD; negative for No carotid bruits GENERAL: Yes trachea midline THYROID: no masses Lymph: LYMPHATIC: no lymphadenopathy noted Chest: COMMONS NORMALS: normal inspection of the chest CHEST: Yes Symmetrical chest wall rise and No tenderness Resp: COMMON NORMALS: normal respiratory effort, No use of accessory muscles and clear to auscultation bilaterally EFFORT & INSPECTION: Yes able to speak in complete sentences AUSCULTATION: clear to auscultation bilaterally, no crackles, no rales, no rhonchi and no wheezes Cardio: COMMON NORMALS: no JVD, regular rate, regular rhythm, S1 normal heart sound present, S2 normal heart sound present and Peripheral pulses 2+ throughout; negative for No gallops present (Cardio) and negative for No clicks present (Cardio) JUGULAR VENOUS DISTENTION: no JVD PALPATION: normal PMI, no heave, no palpable S3, no palpable S4 and no thrill RATE: regular rate R HYTHM: regular rhythm HEART SOUNDS: S1 normal heart sound present, S2 normal heart sound present, no gallops and no murmurs BRUITS: no carotid bruits P ERIPHERAL PULSES: Peripheral pulses 2+ throughout GI: COMMON NORMALS: Normal to inspection, nondistended, normoactive bowel sounds present, Soft to palpation and non-tender PALPATION: Yes Soft to palpation Back/Pelvis: LUMBAR SPINE/LOWER BACK: Yes normal to inspection Neuro: COMMON NORMALS: patient oriented x3 and no focal motor deficits S ENSORIUM/ORIENTATION: Yes alert, Yes oriented to person, Yes oriented to place and Yes oriented to time CRANIAL NERVES: Yes CN normal except as noted Psych: COMMON NORMALS: Normal thought process present APPEARANCE: Yes well kempt MOOD & AFFECT: Yes euthymic mood THOUGHT PROCESS: Normal thought process present THOUGHT CONTENT: Yes Normal thought content present A TTENTION/CONCENTRATION: Yes attention grossly intact MEMORY/COGNITION: Yes memory grossly intact INSIGHT: Good insight present (Psych) JUDGEMENT: G ood judgement present (Psych) Data 03/18/23 03:10 03/18/23 03:10 Other data: TTE (03/17/23) CONCLUSIONS Normal left ventricular size an LV EF of 50-55 % (visual). No regional wall motion abnormalities. Grade I/IV diastolic dysfunction (abnormal relaxation filling pattern), normal to mildly elevated filling pressures. Mildly visibility of the anteroseptal and apical lateral segments. [id number] tricuspid valve regurgitation. Estimated pulmonary artery peak systolic pressure 24 mmHg. Thickened mitral valve. Moderate mitral valve regurgitation. Thickened aortic valve. Trace to mild pulmonary valve regurgitation. There is no pericardial effusion. There are no intracardiac masses. No similar previous studies are available for comparison Head and neck CTA (03/18/23) IMPRESSION: 1. Suspected subacute ischemia in the LEFT posterior temporal lobe with mild associated mass effect. This can be further evaluated with MRI. 2. RIGHT proximal ICA stenosis measuring approximately 40%. RIGHT ICA remains patent to the skull base. 3. No significant LEFT ICA stenosis. 4. Codominant and patent vertebral arteries bilaterally. Basilar artery is patent. 5. Moderate stenosis at the RIGHT P1-2 segment with decreased flow distally in the RIGHT OCCASIONAL BABYSITTER territory. Normal vascularity to the LEFT OCCASIONAL BABYSITTER territory. 6. Normal vascularity to the ENRIQUE and MCA territories bilaterally. Head MRI (03/18/23) IMPRESSION: 1. Moderate sized acute ischemic infarct in the medial posterior LEFT temporal lobe corresponds to the findings on the recent CT head. 2. There are additional smaller acute lacunar infarcts in the posterior LEFT temporal lobe and also the RIGHT cerebellum. Due to the separate arterial distributions consider central embolic event. 3. Large remote infarct RIGHT parietal occipital region with encephalomalacia and volume loss. 4. Additional smaller remote infarct in the posterior LEFT frontal lobe A&P Assessment and plan (1) CVA (cerebral vascular accident): will plan for EVELYN to assess for cardio-embolic source potentially on Thursday -continue to monitor on telemetry to evaluate for arrhythmias especially A. fib/flutter -currently on ASA, plavix and statin -underlying PNH could also be a potential etiology. -recommend involving neurology and heme-onc Qualifiers: CVA mechanism: unspecified Qualified Code(s): I63.9 - Cerebral infarction, unspecified (2) MDS (myelodysplastic syndrome), high grade: Not on treatment (3) Paroxysmal nocturnal hemoglobinuria: (4) Pancytopenia: Plan Elevated troponin 2/2 acute stroke: No chest pain endorsed to at any point. No h/o HTN, DM-2 or family h/o RI. Echo TDS with no RWMA. will repeat study with contrast Mild carotid artery disease Moderate MR Lung nodules Coding Level of Care Code 15865 Diagnoses CVA (cerebral vascular accident) I63.9 CVA mechanism: unspecified MDS (myelodysplastic syndrome), high grade D46.Z Paroxysmal nocturnal hemoglobinuria D59.5 Pancytopenia D61.818
--- NOTE | 2023-03-18 20:49 | P.PN_ITS ---
Subjective 2 Subjective: Per evening nurse, the patient had barricaded himself with the hamper, his walker, and trashcan. 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 The patient was seen this evening. He was standing up, thinking that his telemonitor is the remote control. He is AOx1 to self. His MRI showed embolic strokes, and his troponin T worsened, so Neurology and Cardiology on-call were consulted. Vitals/I&O/Wt Last Vital Signs Temp 97.8 F 03/18/23 19:44 Pulse 78 03/18/23 19:44 Resp 16 03/18/23 19:44 BP 118/68 03/18/23 19:44 Pulse Ox 99 03/18/23 19:44 O2 Del Method Room Air 03/18/23 19:44 03/18/23 03/18/23 03/18/23 06:59 14:59 22:59 Intake Total 120 / 360 1313.75 / 1313.75 240 / 1553.75 Balance 120 / 360 1313.75 / 1313.75 240 / 1553.75 Weight last 48 hrs Weight 56.359 kg Weight 54.573 kg Physical Exam 2 Const: GENERAL APPEARANCE: cooperative and comfortable NUTRITIONAL APPEARANCE: thin ORIENTATION/CONSCIOUSNESS: Yes awake, Yes oriented to person and Yes confused HENMT: COMMON NORMALS: normocephalic, atraumatic and external ears normal H EAD & SCALP: normocephalic and atraumatic EXTERNAL EAR: Yes external ears normal MOUTH: Normal oral and palatal mucosa present THROAT: posterior oropharynx normal Eye: COMMON NORMALS: Equal, round and reactive pupils present and conjunctivae normal CONJUNCTIVA: Yes conjunctivae normal PUPIL: Yes Equal, round and reactive pupils present EOM: No EOM abnormal Neck/C-Spine: COMMON NORMALS: Thyroid normal GENERAL: Yes normal visual inspection and Yes trachea midline THYROID: Thyroid normal CAROTIDS: No bruit Lymph: LYMPHATIC: No lymphadenopathy Resp: OTHER: CTAB with no wheezes rales or rhonchi Cardio: OTHER: Regular rate and rhythm with no murmurs, rubs, gallops or clicks. : OTHER: Bowel sounds positive, nontender, nondistended, no rigidity, no guarding, no rebound tenderness or hepatosplenomegaly appreciated. Extremity: NARRATIVE EXTREMITY EXAM: No clubbing, cyanosis, or pedal edema. Neuro: SENSORIUM/ORIENTATION: Yes oriented to person and Yes Orientation impaired CRANIAL NERVES: Yes CN normal except as noted SPEECH: speech normal (But slow) SENSORY EXAM: No sensory level loss detected MOTOR EXAM: 5/5 motor strength present throughout and Normal motor muscle tone present throughout Psych: APPEARANCE: Yes unkempt ATTITUDE: Yes calm and Yes engaged S PEECH: Yes slow MOOD & AFFECT: Yes Flat affect present THOUGHT PROCESS: O ther thought process findings present (Difficult to assess. Process and content) Skin: COMMON NORMALS: no rashes or lesions noted GENERAL SKIN EXAM: no rashes or lesions noted Data 03/19/23 05:34 03/19/23 05:34 Other data: 03/17/2023 MRI brain w/o contrast impression 1. Moderate sized acute ischemic infarct in the medial posterior LEFT temporal lobe corresponds to the findings on the recent CT head. 2. There are additional smaller acute lacunar infarcts in the posterior LEFT temporal lobe and also the RIGHT cerebellum. Due to the separate arterial distributions consider central embolic event. 3. Large remote infarct RIGHT parietal occipital region with encephalomalacia and volume loss. 4. Additional smaller remote infarct in the posterior LEFT frontal lobe. 03/17/2023 A&P Assessment and plan (1) CVA (cerebral vascular accident): Qualifiers: CVA mechanism: unspecified Qualified Code(s): I63.9 - Cerebral infarction, unspecified (2) MDS (myelodysplastic syndrome), high grade: (3) Macrocytic anemia: (4) Pancytopenia: (5) Prostate cancer: Plan Russell Hancock is a 72 yo man w/ Prostate cancer s/p brachytherapy w/ seed implants, High grade Myelodysplastic Syndrome & Paroxysmal Nocturnal Hemoglobinuria pending treatment initiation, who presented to [facility]'s ED on 03/17/2023 with complaints of confusion and short term memory loss, such as not remembering the year or not being able to find his keys, throughout the day. In the ED, he had 1 episode of tachycardia. His initial EKG showed NSR, with no ST changes, QTc of 439, and LVH. His initial Trop T was 207, with repeats of 226.4 and 222.6. His TSH was 2.04, his head CT showed no evidence of intracranial hemorrhage, but it did show concern for subacute ischemia in the left posterior superior temporal lobe. His CXR showed findings concerning for obstructive lung disease and chronic changes of interstitial fibrosis, pleural plaque formation and pleural thickening in the upper lung zones. He was given Aspirin 324mg x 1 On admission, he was loaded w/ Plavix in addition to full dose Aspirin and stated on full dose Anticoagulation. An MRI brain was ordered that showed a moderate-sized acute ischemic infarct in the medial posterior L. temporal lobe, w/ additional smaller acute lacunar infarcts in the posterior L. temporal lobe and the R. cerebellum. Given the separate arterial distributions of the infarcts, a central embolic event was suggested as a potential source of concern. The MRI also showed a large remote R. Parietal occipital region with encephalomalacia and volume loss as well as a smaller remote infarct in the posterior left frontal lobe. A carotid duplex ultrasound was done that showed less than 50% bilateral ICA stenosis. A CTA head and neck was done that showed a R. Proximal ICA stenosis measuring approximately 40%, no significant L. ICA stenosis, patent bilateral vertebral arteries and basilar arteries, and moderate stenosis at the R. P1-2 segmen w/ decreased flow distally in the R. LENS FABRICATING MACHINE TENDER territory. There is normal vascularity to the left LENS FABRICATING MACHINE TENDER territory. Given the findings on his CXR, as well as concern for an embolic source of his stroke, a CTA chest abdomen and pelvis were ordered, to also rule out malignancy. The CTA chest abdomen and pelvis a 1.3 cm stable noncalcified ovoid nodule on the L. lower lobe. L>R Bronchiectasis in the upper lobes w/ scattered areas of fibrosis. It also showed fibrosis in the mando apices w/ pleural plaques. His TTE showed an LVEF of 50 to 55% with no regional wall motion abnormalities, but grade 1 diastolic dysfunction, mild to moderate tricuspid regurg, moderate mitral valve regurg, and mild pulmonary valve regurg. No pericardial effusion or intracardiac masses were noted. Cardiology was consulted, who planned for a EVELYN. Neurology was also consulted. Cardiology and Neurology recommended a consult with the patient's Hematology/Oncologist. #Altered Mental Status #Embolic CVAs: 1) Acute medial posterior L. temporal lobe ischemic CVA 2) smaller acute lacunar infarcts in the posterior L. temporal lobe and the R. cerebellum - Unclear etiology - Consulted Heme/Onc. EVELYN pending. Neurology & Cardioloy consulted. Heme/Onc to be consulted. - A1c of 4.8. LDL of 76. #Hx of CVAS: Noted on MRI 1) An OLD Large remote R. Parietal occipital region with encephalomalacia and volume loss as well as 2)a smaller remote infarct in the posterior left frontal lobe. #NSTEMI: ACS protocol initiated. Telemetry monitoring ordered. Cardiology consulted. Will hold Plavix. #High grade Myelodysplastic Syndrome & #Paroxysmal Nocturnal Hemoglobinuria: - Per HEme/Onc notes, the patient has been hesitant to start treatment initiation. #Dyspnea: It may be why he is on Tiotropium. Will get a CTA chest/abd/pelvis to further evaluate his lungs and any potential occult malignancy. #UA w/ bacteriuria: F/u UCx. #BPH: PSA <0.014 on 03/18/2023 #Moderate vs Severe Protein Calorie Malnutrition: Will consult Wooling Machine Operator for assessment and supplement recommendation. DVT ppx: On full dose Lovenox. Attestations 2 Medical Necessity Statement*: Patient's needs to remain hospitalized due to continuous workup for his multiple embolic strokes. Coding Level of Care Code 00707 Diagnoses CVA (cerebral vascular accident) I63.9 CVA mechanism: unspecified MDS (myelodysplastic syndrome), high grade D46.Z Macrocytic anemia D53.9 Pancytopenia D61.818 Prostate cancer C61
[2023-03-18] MEDS: atorvastatin 40 mg Tablet 80 MG PO (20:51)
[2023-03-19] VITALS (9 sets, daily range): BP systolic 112–142; BP diastolic 61–80; PULSE 56–91; RESP 15–18; TEMP 36.8–36.9; O2SAT 97–99
[2023-03-19 06:02] LABS: Basophils % 0.4 %; Eosinophils % 1.1 %; Hematocrit 28.4 % (37-53); Lymphocytes % 35.4 %; Mean Corpuscular HGB Conc 32.7 g/dL (30-55); Mean Corpuscular Hemoglobin 36.2 pg (27-33); Mean Corpuscular Volume 110.5 fl (82-101); Mean Platelet Volume 12.3 fL (7.4-10.4); Monocytes # 0.2 10^3/uL (0.2-0.9); Monocytes % 7.8 %; Neutrophils # 1.47 10^3/uL (1.8-7.7); Neutrophils % 54.9 %; Nucleated Red Blood Cells % 0 %; Platelet Count 95 10^3/cmm (157-399); Red Blood Count 2.57 10^6/uL (3.85-5.65); Red Cell Distribution Width 17.8 % (12.1-15.1); White Blood Count 2.68 10^3/uL (3.29-11.43)
[2023-03-19 06:26] LABS: Alanine Aminotransferase 28 U/L (0-41); Albumin Level 3.3 g/dL (3.5-5.2); Alkaline Phosphatase 94 U/L (40-130); Anion Gap 10.8 (5-19); Aspartate Amino Transferase 46 U/L (0-40); Blood Urea Nitrogen 14 mg/dL (8-23); Calcium 8.3 mg/dL (8.5-10.5); Carbon Dioxide 25 mmol/L (22-29); Chloride 106 mmol/L (98-107); Globulin 2.4 g/dL (1.3-4.6); Glucose 93 mg/dL (65-115); Magnesium 1.8 mg/dL (1.7-2.3); Osmolality Calculated 286 mOsm/kg (285-295); Phosphorus 3.2 mg/dL (2.5-4.5); Potassium 3.8 mmol/L (3.5-5.1); Sodium 138 mmol/L (136-145); Total Protein 5.7 g/dL (6.6-8.7)
[2023-03-19 07:09] LABS: Slide Review Slide Review Perform
[2023-03-19] MEDS: pantoprazole DR 40 mg Tablet PO (08:42)
--- NOTE | 2023-03-19 10:03 | P.CONIM_ITS ---
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 He has now been admitted to the hospital with CT evidence of embolic strokes. He has a history of prostate cancer for which he underwent brachytherapy with seed implants. As of 07/23/2021 his PSA level was 0.0 ng/mL. He had been seen here in April 2022 with mild to moderately severe pancytopenia. His PNH screen was positive by flow cytometry, with 28.61% of red cells showing complete CD59 deficiency, 67.45% granulocytes showing FLAER/CD24 deficiency, and 63.81% of monocytes showing FLAER/CD14 deficiency. His bone marrow aspiration/biopsy on 04/21/2022 showed mildly hypercellular marrow for age, and with subtle evidence for dyspoiesis involving all 3 cell lines. Storage iron was noted to be reduced with no ring sideroblasts identified. Flow cytometry showed evidence of a slight myeloid left shift, but without increased blasts. 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 The chromosome analysis also showed loss of the Y chromosome and 17 cells. A heme next generation sequencing study showed no pathogenic mutations. Specifically, the FLT3, IDH1, IDH2, and NPM1 mutations were not detected. On January 02, 2023 he was seen at [facility] by Dr. Ruthy Beltran. He was considered to have high-grade MDS with PNH clone. He was recommended to have observation expectant management for the MDS, with consideration for treatment with a hypomethylating agent and possibly venetoclax if he were to show significant decline in his blood counts. He also was recommended to begin treatment with a complement inhibitor for the PNH. He had several subsequent visits at our office in regard to initiating treatment with ravulizumab. His most recent visit was with id on 03/06/2023, and at that point he was still undecided about proceeding with treatment. In the meantime, on 12/09/2022 he had been seen in the emergency room with weakness and right facial drooping. Noncontrast head CT at that time showed chronic cortical infarcts involving the left frontal lobe and right posterior frontal and parietal lobes. He had been on aspirin prophylaxis, and at that point he also began treatment with clopidogrel. On 03/17/2023 he was admitted to the hospital after presenting to the emergency room with new onset of confusion/memory loss. His head CT showed low- attenuation change within the left posterior superior temporal lobe which was new and there was mild mass effect suspicious for subacute ischemia. Carotid Doppler studies showed <50% ICA stenosis bilaterally. MRI of the head showed moderate-sized acute ischemic infarct in the medial posterior left temporal lobe with additional smaller acute lacunar infarcts in the posterior left temporal lobe and also in the right cerebellum. The distribution was suggestive of central embolic event. There was evidence of a larger remote infarct in the right parietal occipital region and additional smaller remote infarct in the posterior left frontal lobe. With those findings, he was started on Lovenox at a therapeutic dosage, and he has continued aspirin and clopidogrel. He has neurology consultation with Dr. Castano and cardiology consultation with Dr. Junior. He is scheduled to have transesophageal echocardiogram tomorrow. He indicates that he is feeling about the same as always, though he clearly has no recollection of recent events, including his office visit with me on the first of this month and his visit with Dr. Beltran in [place] back in December. He indicates that he had continued his normal activities at home. He reports that his appetite has been good. He has not had fever or night sweats. He does not recall having had headaches, dizziness, or other focal neurologic symptoms. He has not had sore throat or difficulty swallowing. He does not complain of cough, he has not been having shortness of breath or chest pain. He currently has no GI or complaints, and he has no significant joint or bone pain. Review of Systems 2 Narrative: Review of systems is as noted above. Medications/Allergies Home Medications Medication Instructions Recorded Confirmed Last Taken Type cholecalciferol (vitamin D3) 10 10 mcg PO DAILY 03/17/22 03/17/23 10/31/22 History mcg (400 unit) capsule tamsulosin 0.4 mg capsule 0.4 mg PO DAILY 03/17/22 03/17/23 10/31/22 History aspirin 81 mg tablet,delayed 81 mg PO DAILY 10/31/22 03/17/23 10/31/22 History release tiotropium bromide 18 mcg capsule 1 cap inhalation DAILY #60 11/11/22 03/17/23 Unknown Rx with inhalation device (Spiriva inhalations with HandiHaler) atorvastatin 40 mg tablet 20 mg PO DAILY 03/17/23 03/17/23 Unknown History clopidogrel 75 mg tablet 75 mg PO DAILY 03/17/23 03/17/23 Unknown History Allergies Allergy/AdvReac Type Severity Reaction Status Date / Time No Known Allergies Allergy Verified 03/06/23 08:05 Current Medications Generic Name Dose Route Start Last Admin Trade Name Freq PRN Reason Stop Dose Admin Aspirin 81 mg 03/18/23 09:00 03/18/23 08:08 Aspirin 81 Mg Ec Tablet PO 81 mg DAILY FLOYD Administration Atorvastatin Calcium 80 mg 03/18/23 21:00 03/18/23 20:51 Atorvastatin 40 Mg Tablet PO 80 mg BEDTIME FLOYD Administration Clopidogrel Bisulfate 75 mg 03/18/23 09:00 03/18/23 08:08 Clopidogrel 75 Mg Tablet PO 75 mg DAILY FLOYD Administration Enoxaparin Sodium 50 mg 03/17/23 22:00 03/18/23 21:32 Enoxaparin 100 Mg/Ml Syringe 1 mg/kg (50 mg) 50 mg SUBCUT Administration Q12H FLOYD Pantoprazole Sodium 40 mg 03/18/23 09:00 03/19/23 08:[address] 40 Mg Tablet PO 40 mg DAILY FLOYD Administration PFSH Acute 2 PFSH: Medical History MDS (myelodysplastic syndrome), high grade Paroxysmal nocturnal hemoglobinuria Hypertension History of autoimmune thrombocytopenia Prostate cancer Treated with brachytherapy (seed implants) Surgical History History of bronchoscopy (2017) Bronchoscopy/EBUS with FNA biopsies of right lower lobe and mediastinal lymph nodes Family History Brother Lung disease Stage 4 lung cancer - smoker Other CAD (coronary artery disease) Cancer Denies family history of Diabetes Clotting disorder Dementia Hyperlipidemia Psychiatric illness Chronic kidney disease (CKD) Suicide Anesthesia complication Bleeding disorder Stroke Social History Smoking and tobacco/nicotine status: never used tobacco/nicotine Alcohol intake: current Alcohol intake frequency: holidays/special occasions only Vitals/I&O/Wt Last Vital Signs Temp 98.3 F 03/19/23 07:37 Pulse 64 03/19/23 07:52 Resp 16 03/19/23 07:52 BP 133/64 03/19/23 07:37 Pulse Ox 97 03/19/23 07:52 O2 Del Method Room Air 03/19/23 07:52 03/18/23 03/19/23 03/19/23 22:59 06:59 14:59 Intake Total 240 / 1553.75 1000 / 2553.75 240 / 240 Balance 240 / 1553.75 1000 / 2553.75 240 / 240 Weight last 48 hrs Weight 57.691 kg Weight 56.359 kg Weight 54.573 kg Physical Exam 2 Narrative: Constitutional: He does not appear acutely ill. Eyes: Sclerae nonicteric. Conjunctivae clear. ENMT: No lesions noted in the oral cavity. Hematologic/Lymphatic: No cervical, clavicular, or axillary adenopathy. Respiratory: Lungs are clear with good air movement bilaterally. Cardiovascular: Heart rhythm is regular. There is no murmur, gallop, or rub noted. There is no carotid bruit noted. Abdomen: Softr. Liver and spleen are not enlarged. There is no abdominal mass or ascites noted and there is no inguinal adenopathy. Extremities: No edema. Pedal pulses are palpable bilaterally. Neurologic: Mental status is as previously noted. He does not appear to have any focal neurologic deficit. Data 03/19/23 05:34 03/19/23 05:34 A&P Assessment and plan (1) Paroxysmal nocturnal hemoglobinuria: This patient was recently diagnosed with paroxysmal nocturnal hemoglobinuria in association with high risk myelodysplastic syndrome. He was seen at [facility] for a second opinion evaluation, and he was recommended to begin treatment with a complement inhibitor. During his subsequent follow-up here, we had obtained approval and made arrangements for him to start treatment with ravulizumab, but he then declined treatment. In the meantime, in December he had been seen in the emergency room with suspected stroke, and at that time he began treatment with clopidogrel in addition to aspirin prophylaxis, which he had been on previously. He is now admitted to the hospital with MRI evidence of multiple acute cerebral infarcts, felt to be most likely embolic. He is now on full dose Lovenox along with the aspirin and clopidogrel. He is scheduled to have a transesophageal echocardiogram tomorrow. Patient has very little recollection of recent events, including his visit with Dr. Beltran at [facility] and the recommendations for his starting treatment for PNH. I reviewed all of that with him, and we also discussed the fact that the PNH may be a significant contributing factor to his thromboembolism. As such, I think it is imperative that he begin treatment with ravulizumab on an outpatient basis following discharge from the hospital. In the meantime, with suspected embolic strokes, I would recommend continuing anticoagulation, but with transition to apixaban or rivaroxaban. As yet, he still has only mild thrombocytopenia, but I I think it would be advisable to avoid dual antiplatelet therapy in the setting of full dose anticoagulation. Coding Level of Care Code 55679 Diagnoses Paroxysmal nocturnal hemoglobinuria D59.5
[2023-03-19] MEDS: enoxaparin 100 mg/mL Syringe 50 MG SUBCUT ×2 (10:22→22:41)
[2023-03-19] MEDS: aspirin 81 mg EC Tablet PO (10:22)
--- NOTE | 2023-03-19 16:33 | PM.PN ---
Subjective Subjective: Patient had eaten this morning, so he could not go for EVELYN. I also spoke with the patient's Heme/oncologist, who suggested that his paroxysmal nocturnal hemoglobinuria could be causing his strokes. Per the oncologist, okay to continue anticoagulation, but be wary of dual antiplatelet agents. I saw the patient after he stepped out of the shower. He seemed to be confused about how to put on the paper scrubs that were given to him. He had a sitter, due to my concerns that he could fall, as well as my concerns that he was confused when I saw him yesterday evening. Per the sitter who has been sitting with him since morning, the patient did eat breakfast. Discussion with the sitter, revealed that the patient, was exhibiting signs of short-term memory loss, because the patient kept introducing himself to the sitter, and apologizing that he was not speaking to him much. Per the sitter, the patient no longer recalled being visited this morning by the hematology oncologist, Dr. Figueroa, and he definitely did not recall the details of the conversation in that visit. Vitals/I&O/Wt Last Vital Signs Temp 98.4 F 03/19/23 11:44 Pulse 63 03/19/23 16:00 Resp 17 03/19/23 16:00 BP 142/80 03/19/23 16:00 Pulse Ox 99 03/19/23 16:00 O2 Del Method Room Air 03/19/23 16:00 03/19/23 03/19/23 03/19/23 06:59 14:59 22:59 Intake Total 1000 / 2553.75 480 / 480 Balance 1000 / 2553.75 480 / 480 Weight last 48 hrs Weight 57.691 kg Weight 56.359 kg Weight 54.573 kg Physical Exam Const: GENERAL APPEARANCE: cooperative and comfortable NUTRITIONAL APPEARANCE: thin ORIENTATION/CONSCIOUSNESS: Yes awake, Yes oriented to person and Yes confused HENMT: COMMON NORMALS: normocephalic, atraumatic and external ears normal HEAD & SCALP: normocephalic and atraumatic EXTERNAL EAR: Yes external ears normal MOUTH: Normal oral and palatal mucosa present THROAT: posterior oropharynx normal Eye: COMMON NORMALS: Equal, round and reactive pupils present and conjunctivae normal CONJUNCTIVA: Yes conjunctivae normal PUPIL: Yes Equal, round and reactive pupils present EOM: No EOM abnormal Neck/C-Spine: COMMON NORMALS: Thyroid normal GENERAL: Yes normal visual inspection and Yes trachea midline THYROID: Thyroid normal CAROTIDS: No bruit Lymph: LYMPHATIC: No lymphadenopathy Resp: OTHER: CTAB with no wheezes rales or rhonchi Cardio: OTHER: Regular rate and rhythm with no murmurs, rubs, gallops or clicks. : OTHER: Bowel sounds positive, nontender, nondistended, no rigidity, no guarding, no rebound tenderness or hepatosplenomegaly appreciated. Extremity: NARRATIVE EXTREMITY EXAM: No clubbing, cyanosis, or pedal edema. Neuro: SENSORIUM/ORIENTATION: Yes oriented to person and Yes Orientation impaired CRANIAL NERVES: Yes CN normal except as noted SPEECH: speech normal (But slow) SENSORY EXAM: No sensory level loss detected MOTOR EXAM: 5/5 motor strength present throughout and Normal motor muscle tone present throughout Psych: APPEARANCE: Yes unkempt ATTITUDE: Yes calm and Yes engaged SPEECH: Yes slow MOOD & AFFECT: Yes Flat affect present THOUGHT PROCESS: Other thought process findings present (Difficult to assess. Process and content) Skin: COMMON NORMALS: no rashes or lesions noted GENERAL SKIN EXAM: no rashes or lesions noted Data 03/19/23 05:34 03/19/23 05:34 Micro: Microbiology 03/17/23 14:30 Urine Culture - Preliminary Urine Catheterized A&P Assessment and plan (1) CVA (cerebral vascular accident): Qualifiers: CVA mechanism: unspecified Qualified Code(s): I63.9 - Cerebral infarction, unspecified (2) MDS (myelodysplastic syndrome), high grade: (3) Macrocytic anemia: (4) Pancytopenia: (5) Prostate cancer: Plan Russell Hancock is a 72 yo man w/ Prostate cancer s/p brachytherapy w/ seed implants, High grade Myelodysplastic Syndrome & Paroxysmal Nocturnal Hemoglobinuria pending treatment initiation, who presented to [facility] ED on 03/17/2023 with complaints of confusion and short term memory loss, such as not remembering the year or not being able to find his keys, throughout the day. In the ED, he had 1 episode of tachycardia. His initial EKG showed NSR, with no ST changes, QTc of 439, and LVH. His initial Trop T was 207, with repeats of 226.4 and 222.6. His TSH was 2.04, his head CT showed no evidence of intracranial hemorrhage, but it did show concern for subacute ischemia in the left posterior superior temporal lobe. His CXR showed findings concerning for obstructive lung disease and chronic changes of interstitial fibrosis, pleural plaque formation and pleural thickening in the upper lung zones. He was given Aspirin 324mg x 1 On admission, he was loaded w/ Plavix in addition to full dose Aspirin and stated on full dose Anticoagulation. An MRI brain was ordered that showed a moderate-sized acute ischemic infarct in the medial posterior L. temporal lobe, w/ additional smaller acute lacunar infarcts in the posterior L. temporal lobe and the R. cerebellum. Given the separate arterial distributions of the infarcts, a central embolic event was suggested as a potential source of concern. The MRI also showed a large remote R. Parietal occipital region with encephalomalacia and volume loss as well as a smaller remote infarct in the posterior left frontal lobe. A carotid duplex ultrasound was done that showed less than 50% bilateral ICA stenosis. A CTA head and neck was done that showed a R. Proximal ICA stenosis measuring approximately 40%, no significant L. ICA stenosis, patent bilateral vertebral arteries and basilar arteries, and moderate stenosis at the R. P1-2 segmen w/ decreased flow distally in the R. NURSE RECEPTIONIST territory. There is normal vascularity to the left NURSE RECEPTIONIST territory. Given the findings on his CXR, as well as concern for an embolic source of his stroke, a CTA chest abdomen and pelvis were ordered, to also rule out malignancy. The CTA chest abdomen and pelvis a 1.3 cm stable noncalcified ovoid nodule on the L. lower lobe. L>R Bronchiectasis in the upper lobes w/ scattered areas of fibrosis. It also showed fibrosis in the mando apices w/ pleural plaques. His TTE showed an LVEF of 50 to 55% with no regional wall motion abnormalities, but grade 1 diastolic dysfunction, mild to moderate tricuspid regurg, moderate mitral valve regurg, and mild pulmonary valve regurg. No pericardial effusion or intracardiac masses were noted. Cardiology was consulted, who planned for a EVELYN. Neurology was also consulted. Cardiology and Neurology recommended a consult with the patient's Hematology/Oncologist. The patient's hematology oncologist, Dr. Figueroa visited the patient on 03/19/2023. I also spoke with the oncologist, who suggested that the patient's PNH could also be the etiology of his embolic CVAs. He emphasized the need for the patient to start the biologic, Ravilizumab. He also mentioned that the patient did not seem to recall going to [facility], where he was diagnosed, and where Ravulizumab was recommended. The hematology oncologist was committed to following the patient as outpatient to try to help him start the medication. #Altered Mental Status #Embolic CVAs w/ Possibly Short and intermediate Cognitive Deficits. 1) Acute medial posterior L. temporal lobe ischemic CVA 2) smaller acute lacunar infarcts in the posterior L. temporal lobe and the R. cerebellum - Unclear etiology - Consulted Heme/Onc. Neurology & Cardioloy consulted. - EVELYN pending - planned for 03/20/2023. - D/c'ed Plavix. Continue daily Aspirin and full dose Lovenox. - A1c of 4.8. LDL of 76. -His modified barium swallow study was unremarkable. #Hx of CVAS: Noted on MRI 1) An OLD Large remote R. Parietal occipital region with encephalomalacia and volume loss as well as 2)a smaller remote infarct in the posterior left frontal lobe. #NSTEMI: ACS protocol initiated. Telemetry monitoring ordered. Cardiology consulted. Will hold Plavix. #High grade Myelodysplastic Syndrome & #Paroxysmal Nocturnal Hemoglobinuria: - Per HEme/Onc notes, the patient has been hesitant to start treatment initiation. - Patient's Oncologist visi #Dyspnea: It may be why he is on Tiotropium. #UA w/ bacteriuria: UCx is negative. #BPH: PSA <0.014 on 03/18/2023 #Moderate vs Severe Protein Calorie Malnutrition: Will consult Inside Sales Representative for assessment and supplement recommendation. DVT ppx: On full dose Lovenox. Attestations Medical Necessity Statement*: The patient needs to remain hospitalized for continued workup of his embolic CVA. Coding Level of Care Code 64783 Diagnoses CVA (cerebral vascular accident) I63.9 CVA mechanism: unspecified MDS (myelodysplastic syndrome), high grade D46.Z Macrocytic anemia D53.9 Pancytopenia D61.818 Prostate cancer C61
[2023-03-19] MEDS: atorvastatin 40 mg Tablet 80 MG PO (22:41)
[2023-03-20] VITALS (20 sets, daily range): BP systolic 100–148; BP diastolic 60–77; PULSE 55–84; RESP 12–18; TEMP 36.5–37.1; O2SAT 92–99
[2023-03-20 05:38] LABS: Alanine Aminotransferase 25 U/L (0-41); Albumin Level 3.7 g/dL (3.5-5.2); Alkaline Phosphatase 100 U/L (40-130); Aspartate Amino Transferase 36 U/L (0-40); Globulin 2.8 g/dL (1.3-4.6); Total Bilirubin 1.8 mg/dL (0.15-1.2); Total Protein 6.5 g/dL (6.6-8.7)
[2023-03-20] MEDS: pantoprazole DR 40 mg Tablet PO (08:42)
[2023-03-20] MEDS: enoxaparin 100 mg/mL Syringe 50 MG SUBCUT (10:56)
--- NOTE | 2023-03-20 12:06 | P.PN_ITS ---
Subjective 2 Subjective: Patient underwent EVELYN today after consent was obtained from his brother and sister in law. Medications: Reviewed: Yes Vitals/I&O/Wt Last Vital Signs Temp 98.1 F 03/20/23 11:47 Pulse 72 03/20/23 11:47 Resp 18 03/20/23 11:47 BP 122/70 03/20/23 11:47 Pulse Ox 98 03/20/23 08:09 O2 Del Method Room Air 03/20/23 08:09 03/19/23 03/20/23 03/20/23 22:59 06:59 14:59 Intake Total 240 / 720 Balance 240 / 720 Weight last 48 hrs Weight 124 lb 3.2 oz Weight 127 lb 3 oz Physical Exam 2 Const: COMMON NORMALS: no acute distress, average body habitus, patient oriented x3, alert and well nourished GENERAL APPEARANCE: cooperative, comfortable, well kempt and well developed ORIENTATION/CONSCIOUSNESS: Yes oriented to person, Yes oriented to place and Yes oriented to time HENMT: COMMON NORMALS: normocephalic, atraumatic, hearing grossly normal bilaterally, external ears normal and Normal external nose present HEAD & SCALP: normocephalic and atraumatic FACE & SINUS: face symmetric NOSE: N ormal external nose present EXTERNAL EAR: Yes external ears normal Eye: COMMON NORMALS: EOMs intact bilaterally and conjunctivae normal A LIGNMENT: Yes alignment normal CONJUNCTIVA: Yes conjunctivae normal S CLERA: sclerae normal Neck/C-Spine: COMMON NORMALS: no JVD; negative for No carotid bruits GENERAL: Yes trachea midline THYROID: no masses Lymph: LYMPHATIC: no lymphadenopathy noted Chest: COMMONS NORMALS: normal inspection of the chest CHEST: Yes Symmetrical chest wall rise and No tenderness Resp: COMMON NORMALS: normal respiratory effort, No use of accessory muscles and clear to auscultation bilaterally EFFORT & INSPECTION: Yes able to speak in complete sentences, No labored and No audible wheezes AUSCULTATION: clear to auscultation bilaterally, no crackles, no rales, no rhonchi and no wheezes Cardio: COMMON NORMALS: no JVD, regular rate, regular rhythm, S1 normal heart sound present, S2 normal heart sound present and Peripheral pulses 2+ throughout; negative for No gallops present (Cardio) and negative for No clicks present (Cardio) JUGULAR VENOUS DISTENTION: no JVD PALPATION: normal PMI, no heave, no palpable S3, no palpable S4 and no thrill RATE: regular rate R HYTHM: regular rhythm HEART SOUNDS: S1 normal heart sound present, S2 normal heart sound present, no gallops and no murmurs BRUITS: no carotid bruits P ERIPHERAL PULSES: Peripheral pulses 2+ throughout GI: COMMON NORMALS: Normal to inspection, nondistended, normoactive bowel sounds present, Soft to palpation and non-tender PALPATION: Yes Soft to palpation RECTAL EXAM: Yes deferred Back/Pelvis: LUMBAR SPINE/LOWER BACK: Yes normal to inspection Neuro: COMMON NORMALS: patient oriented x3 and no focal motor deficits S ENSORIUM/ORIENTATION: Yes alert, Yes oriented to person, Yes oriented to place and Yes oriented to time CRANIAL NERVES: Yes CN normal except as noted Psych: COMMON NORMALS: Normal thought process present APPEARANCE: Yes well kempt MOOD & AFFECT: Yes euthymic mood THOUGHT PROCESS: Normal thought process present THOUGHT CONTENT: Yes Normal thought content present A TTENTION/CONCENTRATION: Yes attention grossly intact MEMORY/COGNITION: Yes memory grossly intact INSIGHT: Good insight present (Psych) JUDGEMENT: G ood judgement present (Psych) Data 03/19/23 05:34 03/19/23 05:34 Micro: Microbiology 03/17/23 14:30 Urine Culture - Final Urine Catheterized A&P Assessment and plan (1) CVA (cerebral vascular accident): EVELYN with no LV thrombus,LA/MARGO thrombus. No ASD or PFO identified. -continue to monitor on telemetry to evaluate for arrhythmias especially A. fib/flutter -meds as per neurology and heme onc -underlying PNH most likely etiology. -recommend continued follow up with neurology and heme-onc Qualifiers: CVA mechanism: unspecified Qualified Code(s): I63.9 - Cerebral infarction, unspecified (2) MDS (myelodysplastic syndrome), high grade: Not on treatment (3) Paroxysmal nocturnal hemoglobinuria: treatment per heme-onc (4) Pancytopenia: Plan Elevated troponin 2/2 acute stroke: No chest pain endorsed to at any point. No h/o HTN, DM-2 or family h/o MS. EVELYN revealed normal LV function and no RWMA. May consider stress testing as an outpatient. Mild carotid artery disease Moderate MR Lung nodules Thank you for consultation. I will sign off. Attestations 2 Medical Necessity Statement*: As per primary team Coding Level of Care Code Acute Code for Chg Fwd Diagnoses CVA (cerebral vascular accident) I63.9 CVA mechanism: unspecified MDS (myelodysplastic syndrome), high grade D46.Z Paroxysmal nocturnal hemoglobinuria D59.5 Pancytopenia D61.818
[2023-03-20] MEDS: sodium chloride 0.9% 1,000 ML 30 ML IV (12:30)
--- NOTE | 2023-03-20 12:49 | P.ANESASSM_ITS ---
Pre-Anesthetic Assessment Height/Weight: Height 1.73 m Weight 56.336 kg Temp Pulse Resp BP Pulse Ox O2 Del Method 98.2 F 55 L 18 119/64 99 Room Air 03/20/23 12:18 03/20/23 12:18 03/20/23 12:18 03/20/23 12:18 03/20/23 12:18 03/20/23 12:18 Operation Date: 03/20/23 13:00 Proposed Procedures p EVELYN(Not Applicable) - Nohemy Junior MD Was Beta Jana taken within 24 hours: N/A Was Clonidine taken within 24 hours: N/A Social No alcohol and No tobacco Exam alert and oriented x 3 Airway Submandibular: within normal limits Cervical ROM: within normal limits Mallampati: Class III History/ROS Other (not good historian d/t CVA) Pulmonary None reported CV/HEM None reported None reported Hepatic None reported GI None reported Metabolic Hyperlipidemia [facility] [place] [facility] [place] None reported Neuropsych Cerebrovascular Accident, Dementia (confusion) and Transient Ischemic Attack Anesthetic Plan ASA status: 3 Anesthesia: MAC Risk of > 500 ml blood loss (7ml/kg in children): No Medications/Allergies Home Medications Medication Instructions Recorded Confirmed Last Taken Type cholecalciferol (vitamin D3) 10 10 mcg PO DAILY 03/17/22 03/17/23 10/31/22 History mcg (400 unit) capsule tamsulosin 0.4 mg capsule 0.4 mg PO DAILY 03/17/22 03/17/23 10/31/22 History aspirin 81 mg tablet,delayed 81 mg PO DAILY 10/31/22 03/17/23 10/31/22 History release tiotropium bromide 18 mcg capsule 1 cap inhalation DAILY #60 11/11/22 03/17/23 Unknown Rx with inhalation device (Spiriva inhalations with HandiHaler) atorvastatin 40 mg tablet 20 mg PO DAILY 03/17/23 03/17/23 Unknown History clopidogrel 75 mg tablet 75 mg PO DAILY 03/17/23 03/17/23 Unknown History Allergies Allergy/AdvReac Type Severity Reaction Status Date / Time No Known Allergies Allergy Verified 03/06/23 08:05 Current Medications Generic Name Dose Route Start Last Admin Trade Name Freq PRN Reason Stop Dose Admin Aspirin 81 mg 03/18/23 09:00 03/19/23 10:22 Aspirin 81 Mg Ec Tablet PO 81 mg DAILY FLOYD Administration Atorvastatin Calcium 80 mg 03/18/23 21:00 03/19/23 22:41 Atorvastatin 40 Mg Tablet PO 80 mg BEDTIME FLOYD Administration Clopidogrel Bisulfate 75 mg 03/18/23 09:00 03/18/23 08:08 Clopidogrel 75 Mg Tablet PO 75 mg DAILY FLOYD Administration Pantoprazole Sodium 40 mg 03/18/23 09:00 03/20/23 08:[address] 40 Mg Tablet PO 40 mg DAILY FLOYD Administration [facility] Anesthesia Medical History MDS (myelodysplastic syndrome), high grade Paroxysmal nocturnal hemoglobinuria Hypertension History of autoimmune thrombocytopenia Prostate cancer Treated with brachytherapy (seed implants) Surgical History History of bronchoscopy (2017) Bronchoscopy/EBUS with FNA biopsies of right lower lobe and mediastinal lymph nodes Family History Brother Lung disease Stage 4 lung cancer - smoker Other CAD (coronary artery disease) Cancer Denies family history of Diabetes Clotting disorder Dementia Hyperlipidemia Psychiatric illness Chronic kidney disease (CKD) Suicide Anesthesia complication Bleeding disorder Stroke Social History Smoking and tobacco/nicotine status: never used tobacco/nicotine Alcohol intake: current Alcohol intake frequency: holidays/special occasions only Data Anesthesia 03/19/23 05:34 03/19/23 05:34 Short CBC 03/19/23 Range/Units 05:34 WBC 2.68 L (3.29-11.43) 10^3/uL Hgb 9.30 L (11.27-16.99) g/dL Hct 28.4 L (37-53) % MCV 110.5 H (82-101) fl Plt Count 95 L (157-399) 10^3/cmm Neut % (Auto) 54.9 % Neut # (Auto) 1.47 L (1.8-7.7) 10^3/uL BMP 03/19/23 05:34 Sodium 138 Potassium 3.8 Chloride 106 Carbon Dioxide 25 BUN 14 Creatinine 0.7 Glucose 93 Calcium 8.3 L Liver Function 03/19/23 03/20/23 Range/Units 05:34 05:01 Total Bilirubin 2.0 H 1.8 H (0.15-1.2) mg/dL Direct Bilirubin 0.30 (0.00-0.30) mg/dL AST 46 H 36 (0-40) U/L ALT 28 25 (0-41) U/L Alkaline Phosphatase 94 100 (40-130) U/L Albumin 3.3 L 3.7 (3.5-5.2) g/dL Microbiology 03/17/23 14:30 Urine Culture - Final Urine Catheterized Cardiac Studies: 2 Echocardiogram 03/17/23
--- NOTE | 2023-03-20 13:00 | USCV_ITS ---
Russell Hancock Age: 72 Gender: M : 1950 Exam Date: 03/20/2023 13:03 Ordering Phys: Nohemy Junior MD ([email or web address]) Technologist: MADELEINE [place]am [place] [facility] [place] [facility] [place] Indication: CVA BP: 143 / 70 HR: 74 Rhythm: Sinus Technical Quality: Adequate MEASUREMENTS (Male / Female) Normal Values Medications Patient given IV sedation by anesthesia service, for details please refer to the anesthesia report. Complications Patient tolerated procedure well. Proc. Components Intubation difficult. Attempts x 3. The EVELYN probe was passed into the posterior pharynx , mid-esophagus, distal esophagus, and gastric fundus. Small amount of blood on probe post procedure. FINDINGS Left Ventricle Normal left ventricular size, systolic function and wall thickness, with no regional wall motion abnormalities. Left ventricular ejection fraction is estimated at 55 %. Right Ventricle Normal right ventricular size and systolic function. Right Atrium Normal right atrial size. Left Atrium Normal left atrial size. LA Appendage Normal left atrial appendage. Normal flow velocities in the left atrial appendage. No thrombus visualized in the left atrial appendage. IA Septum Normal interatrial septum. No patent foramen ovale. No evidence for an atrial septal defect. Mitral Valve Structurally normal mitral valve. No mitral valve stenosis. Trace mitral valve regurgitation. Aortic Valve Structurally normal trileaflet aortic valve. No aortic valve stenosis. No aortic valve regurgitation. Tricuspid Valve Structurally normal tricuspid valve. No tricuspid valve stenosis. Trace tricuspid valve regurgitation. Pulmonic Valve Structurally normal pulmonic valve. No pulmonary valve stenosis. No pulmonary valve regurgitation. Pericardium No pericardial effusion. Aorta Normal size aortic root and proximal ascending aorta. No aortic dilation, dissection or aneurysm. Grade 3 atheroma in aortic arch. CONCLUSIONS 1. Normal left ventricular size, systolic function and wall thickness, with no regional wall motion abnormalities. Left ventricular ejection fraction is estimated at 55 %. 2. No LA/MARGO thrombus. 3. No ASD or PFO identified. Nohemy Junior MD (Electronically Signed) Final Date: 23 March 2023 07:35 S
--- NOTE | 2023-03-20 14:47 | ANE.PACU2 ---
Inpatient post-anesthesia follow up: Airway intact: Yes Vital signs: Temperature 97.9 F Pulse Rate 68 Respiratory Rate 18 Blood Pressure 147/77 Pulse Oximetry 99 Oxygen Delivery Me thod Room Air Oxygen Flow Rate 4 Fraction of Inspir ed Oxygen Hydration adequate: Yes Nausea and vomiting: No Pain level: 1 Mental status: Baseline
--- NOTE | 2023-03-20 19:46 | PM.PN ---
Subjective Subjective: He was seen in the room, rearranging his few clothes. He said he was sorting things out. When probed deeper, he gave vague answers. He was able to tell me that he had a bunch of heart tests today, but when asked the type of test(s) that he did today, he is unable to tell me. He also tells me that this is not his first rodeo. When asked what he meant, he tells me, my first rodeo with a stroke. He was AO x 1 to self. A EVELYN was done today that showed no left ventricular, left atrial/left atrial appendage thrombus, and no ASD or PFO. Per cardiology, the source of his strokes are likely due to his underlying PNH. At this time cardiology signed off, but suggested conducting a stress test on the patient as outpatient. Medications: Reviewed: Yes Vitals/I&O/Wt Last Vital Signs Temp 97.8 F 03/20/23 16:18 Pulse 78 03/20/23 16:18 Resp 18 03/20/23 16:18 BP 121/68 03/20/23 16:18 Pulse Ox 96 03/20/23 16:18 O2 Del Method Room Air 03/20/23 16:18 O2 Flow Rate 4 03/20/23 13:23 03/20/23 03/20/23 03/20/23 06:59 14:59 22:59 Intake Total 200 / 200 480 / 680 Balance 200 / 200 480 / 680 Weight last 48 hrs Weight 56.336 kg Weight 57.691 kg Physical Exam Const: GENERAL APPEARANCE: cooperative and comfortable NUTRITIONAL APPEARANCE: thin ORIENTATION/CONSCIOUSNESS: Yes awake, Yes oriented to person and Yes confused HENMT: COMMON NORMALS: normocephalic, atraumatic and external ears normal HEAD & SCALP: normocephalic and atraumatic EXTERNAL EAR: Yes external ears normal MOUTH: Normal oral and palatal mucosa present THROAT: posterior oropharynx normal Eye: COMMON NORMALS: Equal, round and reactive pupils present and conjunctivae normal CONJUNCTIVA: Yes conjunctivae normal PUPIL: Yes Equal, round and reactive pupils present EOM: No EOM abnormal Neck/C-Spine: COMMON NORMALS: Thyroid normal GENERAL: Yes normal visual inspection and Yes trachea midline THYROID: Thyroid normal CAROTIDS: No bruit Lymph: LYMPHATIC: No lymphadenopathy Resp: OTHER: CTAB with no wheezes rales or rhonchi Cardio: OTHER: Regular rate and rhythm with no murmurs, rubs, gallops or clicks. : OTHER: Bowel sounds positive, nontender, nondistended, no rigidity, no guarding, no rebound tenderness or hepatosplenomegaly appreciated. Extremity: NARRATIVE EXTREMITY EXAM: No clubbing, cyanosis, or pedal edema. Neuro: SENSORIUM/ORIENTATION: Yes oriented to person and Yes Orientation impaired CRANIAL NERVES: Yes CN normal except as noted SPEECH: speech normal (But slow) SENSORY EXAM: No sensory level loss detected MOTOR EXAM: 5/5 motor strength present throughout and Normal motor muscle tone present throughout Psych: APPEARANCE: Yes unkempt ATTITUDE: Yes calm and Yes engaged SPEECH: Yes slow MOOD & AFFECT: Yes Flat affect present THOUGHT PROCESS: Other thought process findings present (Difficult to assess. Process and content) Skin: COMMON NORMALS: no rashes or lesions noted GENERAL SKIN EXAM: no rashes or lesions noted Data 03/19/23 05:34 03/19/23 05:34 Micro: Microbiology 03/17/23 14:30 Urine Culture - Final Urine Catheterized A&P Assessment and plan (1) CVA (cerebral vascular accident): Qualifiers: CVA mechanism: unspecified Qualified Code(s): I63.9 - Cerebral infarction, unspecified (2) MDS (myelodysplastic syndrome), high grade: (3) Macrocytic anemia: (4) Pancytopenia: (5) Prostate cancer: Plan Russell Hancock is a 72 yo man w/ Prostate cancer s/p brachytherapy w/ seed implants, High grade Myelodysplastic Syndrome & Paroxysmal Nocturnal Hemoglobinuria pending treatment initiation, who presented to [facility] ED on 03/17/2023 with complaints of confusion and short term memory loss, such as not remembering the year or not being able to find his keys, throughout the day. In the ED, he had 1 episode of tachycardia. His initial EKG showed NSR, with no ST changes, QTc of 439, and LVH. His initial Trop T was 207, with repeats of 226.4 and 222.6. His TSH was 2.04, his head CT showed no evidence of intracranial hemorrhage, but it did show concern for subacute ischemia in the left posterior superior temporal lobe. His CXR showed findings concerning for obstructive lung disease and chronic changes of interstitial fibrosis, pleural plaque formation and pleural thickening in the upper lung zones. He was given Aspirin 324mg x 1 On admission, he was loaded w/ Plavix in addition to full dose Aspirin and stated on full dose Anticoagulation. An MRI brain was ordered that showed a moderate-sized acute ischemic infarct in the medial posterior L. temporal lobe, w/ additional smaller acute lacunar infarcts in the posterior L. temporal lobe and the R. cerebellum. Given the separate arterial distributions of the infarcts, a central embolic event was suggested as a potential source of concern. The MRI also showed a large remote R. Parietal occipital region with encephalomalacia and volume loss as well as a smaller remote infarct in the posterior left frontal lobe. A carotid duplex ultrasound was done that showed less than 50% bilateral ICA stenosis. A CTA head and neck was done that showed a R. Proximal ICA stenosis measuring approximately 40%, no significant L. ICA stenosis, patent bilateral vertebral arteries and basilar arteries, and moderate stenosis at the R. P1-2 segmen w/ decreased flow distally in the R. STOREROOM ATTENDANT territory. There is normal vascularity to the left STOREROOM ATTENDANT territory. Given the findings on his CXR, as well as concern for an embolic source of his stroke, a CTA chest abdomen and pelvis were ordered, to also rule out malignancy. The CTA chest abdomen and pelvis a 1.3 cm stable noncalcified ovoid nodule on the L. lower lobe. L>R Bronchiectasis in the upper lobes w/ scattered areas of fibrosis. It also showed fibrosis in the mando apices w/ pleural plaques. His TTE showed an LVEF of 50 to 55% with no regional wall motion abnormalities, but grade 1 diastolic dysfunction, mild to moderate tricuspid regurg, moderate mitral valve regurg, and mild pulmonary valve regurg. No pericardial effusion or intracardiac masses were noted. Cardiology was consulted, who planned for a EVELYN. Neurology was also consulted. Cardiology and Neurology recommended a consult with the patient's Hematology/Oncologist. The patient's hematology oncologist, Dr. Figueroa visited the patient on 03/19/2023. I also spoke with the oncologist, who suggested that the patient's PNH could also be the etiology of his embolic CVAs. He emphasized the need for the patient to start the biologic, Ravilizumab. He also mentioned that the patient did not seem to recall going to [place], where he was diagnosed, and where Ravulizumab was recommended. The hematology oncologist was committed to following the patient as outpatient to try to help him start the medication. A EVELYN was done on 03/20/2023 that showed no left ventricular (LV), left atrial/left atrial appendage (LA/MARGO) thrombus, and no ASD or PFO. Per cardiology, the source of his strokes are likely due to his underlying PNH. At this time cardiology signed off, but suggested conducting a stress test on the patient as outpatient. 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 1) Acute medial posterior L. temporal lobe ischemic CVA 2) smaller acute lacunar infarcts in the posterior L. temporal lobe and the R. cerebellum - Unclear etiology - Consulted Heme/Onc. Neurology & Cardioloy consulted. - EVELYN done on 03/20/2023 was negative for a left ventricular (LV), left atrial/left atrial appendage (LA/MARGO) thrombus, and no ASD or PFO - D/c'ed Plavix. Continue daily Aspirin and full dose Lovenox. - A1c of 4.8. LDL of 76. -His modified barium swallow study was unremarkable. - Patient's cognitive deficits and short as well as usp memory losses are such that I truly question whether he had capacity. #Hx of CVAS: Noted on MRI 1) An OLD Large remote R. Parietal occipital region with encephalomalacia and volume loss as well as 2)a smaller remote infarct in the posterior left frontal lobe. #NSTEMI: ACS protocol initiated. Telemetry monitoring ordered. Cardiology consulted. Will hold Plavix. #High grade Myelodysplastic Syndrome & #Paroxysmal Nocturnal Hemoglobinuria: - Per HEme/Onc notes, the patient has been hesitant to start treatment initiation. - Patient's Oncologist visi #Dyspnea: It may be why he is on Tiotropium. #UA w/ bacteriuria: UCx is negative. #BPH: PSA <0.014 on 03/18/2023 #Moderate vs Severe Protein Calorie Malnutrition: Will consult [employer] Professor for assessment and supplement recommendation. DVT ppx: On full dose Lovenox. Attestations Medical Necessity Statement*: Patient remains hospitalized at this time. He will need a stress test, and his discharge is concerning. Coding Level of Care Code Acute Code for [facility] Fwd Diagnoses CVA (cerebral vascular accident) I63.9 CVA mechanism: unspecified MDS (myelodysplastic syndrome), high grade D46.Z Macrocytic anemia D53.9 Pancytopenia D61.818 Prostate cancer C61
[2023-03-20] MEDS: atorvastatin 40 mg Tablet 80 MG PO (20:12)
[2023-03-21] VITALS (10 sets, daily range): BP systolic 103–137; BP diastolic 60–76; PULSE 66–92; RESP 16–22; TEMP 36.5–36.9; O2SAT 97–100
--- NOTE | 2023-03-21 04:58 | PC.NURSE ---
Patient climbed into bed 2 and stated that bed 1 was getting to be too uncomfortable. This nurse lowered the bed down to the lowest setting and ensured the patient had his call light.
[2023-03-21] MEDS: pantoprazole DR 40 mg Tablet PO (09:24)
[2023-03-21] MEDS: aspirin 81 mg EC Tablet PO (09:24)
[2023-03-21] MEDS: atorvastatin 40 mg Tablet 80 MG PO (21:00)
--- NOTE | 2023-03-21 23:52 | P.PN_ITS ---
Subjective 2 Subjective: The patient has no complaints. He remains alert to self. He does not remember who I am or ever seeing me. Medications: Reviewed: Yes Vitals/I&O/Wt Last Vital Signs Temp 98.1 F 03/21/23 19:51 Pulse 76 03/21/23 19:53 Resp 16 03/21/23 19:53 BP 130/68 03/21/23 19:51 Pulse Ox 99 03/21/23 19:53 O2 Del Method Room Air 03/21/23 19:53 O2 Flow Rate 4 03/20/23 13:23 03/21/23 03/21/23 03/22/23 14:59 22:59 06:59 Intake Total 480 / 480 Balance 480 / 480 Weight last 48 hrs Weight 56.331 kg Weight 56.336 kg Physical Exam 2 Const: GENERAL APPEARANCE: cooperative and comfortable NUTRITIONAL APPEARANCE: thin ORIENTATION/CONSCIOUSNESS: Yes awake, Yes oriented to person and Yes confused HENMT: COMMON NORMALS: normocephalic, atraumatic and external ears normal H EAD & SCALP: normocephalic and atraumatic EXTERNAL EAR: Yes external ears normal MOUTH: Normal oral and palatal mucosa present THROAT: posterior oropharynx normal Eye: COMMON NORMALS: Equal, round and reactive pupils present and conjunctivae normal CONJUNCTIVA: Yes conjunctivae normal PUPIL: Yes Equal, round and reactive pupils present EOM: No EOM abnormal Neck/C-Spine: COMMON NORMALS: Thyroid normal GENERAL: Yes normal visual inspection and Yes trachea midline THYROID: Thyroid normal CAROTIDS: No bruit Lymph: LYMPHATIC: No lymphadenopathy Resp: OTHER: CTAB with no wheezes rales or rhonchi Cardio: OTHER: Regular rate and rhythm with no murmurs, rubs, gallops or clicks. : OTHER: Bowel sounds positive, nontender, nondistended, no rigidity, no guarding, no rebound tenderness or hepatosplenomegaly appreciated. Extremity: NARRATIVE EXTREMITY EXAM: No clubbing, cyanosis, or pedal edema. Neuro: SENSORIUM/ORIENTATION: Yes oriented to person and Yes Orientation impaired CRANIAL NERVES: Yes CN normal except as noted SPEECH: speech normal (But slow) SENSORY EXAM: No sensory level loss detected MOTOR EXAM: 5/5 motor strength present throughout and Normal motor muscle tone present throughout Psych: APPEARANCE: Yes unkempt ATTITUDE: Yes calm and Yes engaged S PEECH: Yes slow MOOD & AFFECT: Yes Flat affect present THOUGHT PROCESS: O ther thought process findings present (Difficult to assess. 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 In the ED, he had 1 episode of tachycardia. His initial EKG showed NSR, with no ST changes, QTc of 439, and LVH. His initial Trop T was 207, with repeats of 226.4 and 222.6. His TSH was 2.04, his head CT showed no evidence of intracranial hemorrhage, but it did show concern for subacute ischemia in the left posterior superior temporal lobe. His CXR showed findings concerning for obstructive lung disease and chronic changes of interstitial fibrosis, pleural plaque formation and pleural thickening in the upper lung zones. He was given Aspirin 324mg x 1 On admission, he was loaded w/ Plavix in addition to full dose Aspirin and stated on full dose Anticoagulation. An MRI brain was ordered that showed a moderate-sized acute ischemic infarct in the medial posterior L. temporal lobe, w/ additional smaller acute lacunar infarcts in the posterior L. temporal lobe and the R. cerebellum. Given the separate arterial distributions of the infarcts, a central embolic event was suggested as a potential source of concern. The MRI also showed a large remote R. Parietal occipital region with encephalomalacia and volume loss as well as a smaller remote infarct in the posterior left frontal lobe. A carotid duplex ultrasound was done that showed less than 50% bilateral ICA stenosis. A CTA head and neck was done that showed a R. Proximal ICA stenosis measuring approximately 40%, no significant L. ICA stenosis, patent bilateral vertebral arteries and basilar arteries, and moderate stenosis at the R. P1-2 segmen w/ decreased flow distally in the R. FOOD ADVISER territory. There is normal vascularity to the left FOOD ADVISER territory. Given the findings on his CXR, as well as concern for an embolic source of his stroke, a CTA chest abdomen and pelvis were ordered, to also rule out malignancy. The CTA chest abdomen and pelvis a 1.3 cm stable noncalcified ovoid nodule on the L. lower lobe. L>R Bronchiectasis in the upper lobes w/ scattered areas of fibrosis. It also showed fibrosis in the mando apices w/ pleural plaques. His TTE showed an LVEF of 50 to 55% with no regional wall motion abnormalities, but grade 1 diastolic dysfunction, mild to moderate tricuspid regurg, moderate mitral valve regurg, and mild pulmonary valve regurg. No pericardial effusion or intracardiac masses were noted. Cardiology was consulted, who planned for a EVELYN. Neurology was also consulted. Cardiology and Neurology recommended a consult with the patient's Hematology/Oncologist. The patient's hematology oncologist, Dr. Figueroa visited the patient on 03/19/2023. I also spoke with the oncologist, who suggested that the patient's PNH could also be the etiology of his embolic CVAs. He emphasized the need for the patient to start the biologic, Ravilizumab. He also mentioned that the patient did not seem to recall going to [place], where he was diagnosed, and where Ravulizumab was recommended. The hematology oncologist was committed to following the patient as outpatient to try to help him start the medication. A EVELYN was done on 03/20/2023 that showed no left ventricular (LV), left atrial/left atrial appendage (LA/MARGO) thrombus, and no ASD or PFO. Per cardiology, the source of his strokes are likely due to his underlying PNH. At this time cardiology signed off, but suggested conducting a stress test on the patient as outpatient. 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 1) Acute medial posterior L. temporal lobe ischemic CVA 2) smaller acute lacunar infarcts in the posterior L. temporal lobe and the R. cerebellum - Unclear etiology - Consulted Heme/Onc. Neurology & Cardioloy consulted. - EVELYN done on 03/20/2023 was negative for a left ventricular (LV), left atrial/left atrial appendage (LA/MARGO) thrombus, and no ASD or PFO - D/c'ed Plavix. Continue daily Aspirin and full dose Lovenox. - A1c of 4.8. LDL of 76. -His modified barium swallow study was unremarkable. - Patient's cognitive deficits and short as well as group home memory losses are such that I truly question whether he had capacity. #Hx of CVAS: Noted on MRI 1) An OLD Large remote R. Parietal occipital region with encephalomalacia and volume loss as well as 2)a smaller remote infarct in the posterior left frontal lobe. #NSTEMI: ACS protocol initiated. Telemetry monitoring ordered. Cardiology consulted. Will hold Plavix. #High grade Myelodysplastic Syndrome & #Paroxysmal Nocturnal Hemoglobinuria: - Per HEme/Onc notes, the patient has been hesitant to start treatment initiation. - Patient's Oncologist visi #Dyspnea: It may be why he is on Tiotropium. #UA w/ bacteriuria: UCx is negative. #BPH: PSA <0.014 on 03/18/2023 #Moderate vs Severe Protein Calorie Malnutrition: Will consult Laserist for assessment and supplement recommendation. DVT ppx: On full dose Lovenox. Attestations 2 Medical Necessity Statement*: The patient remains hospitalized for a stress test and for a complicated discharge given concerns about his capacity to make decisions appropriately. Coding Level of Care Code Acute Code for Chg Fwd Diagnoses CVA (cerebral vascular accident) I63.9 CVA mechanism: unspecified MDS (myelodysplastic syndrome), high grade D46.Z Macrocytic anemia D53.9 Pancytopenia D61.818 Prostate cancer C61
[2023-03-22] VITALS (8 sets, daily range): BP systolic 96–121; BP diastolic 69; PULSE 62–84; RESP 16–17; TEMP 36.4–36.8; O2SAT 95–100
[2023-03-22] MEDS: aspirin 81 mg EC Tablet PO (09:27)
[2023-03-22] MEDS: pantoprazole DR 40 mg Tablet PO (09:27)
[2023-03-22] MEDS: atorvastatin 40 mg Tablet 80 MG PO (21:37)
--- NOTE | 2023-03-22 22:56 | PM.PN ---
Subjective Subjective: The patient was seen pacing his room again. He once again does not remember who I am nor does she remember ever reading me. He appeared embarrassed when I reminded him that I was the physician who was taking care of him. We sat down to chat. There were periods of silence, where he would apologize for not being a good conversationalist. He overall made short sentences about the need to find out what to do about his 3 of 4 strokes. He appeared sad about having the strokes, but he could not make deeper statements about his strokes. 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 Medications: Reviewed: Yes Vitals/I&O/Wt Last Vital Signs Temp 98.2 F 03/22/23 19:47 Pulse 79 03/22/23 22:00 Resp 16 03/22/23 22:00 BP 117/69 03/22/23 19:47 Pulse Ox 100 03/22/23 22:00 O2 Del Method Room Air 03/22/23 19:47 O2 Flow Rate 4 03/20/23 13:23 03/22/23 03/22/23 03/22/23 06:59 14:59 22:59 Intake Total 720 / 720 240 / 960 Balance 720 / 720 240 / 960 Weight last 48 hrs Weight 55.849 kg Weight 56.331 kg Physical Exam Const: GENERAL APPEARANCE: cooperative and comfortable NUTRITIONAL APPEARANCE: thin ORIENTATION/CONSCIOUSNESS: Yes awake, Yes oriented to person and Yes confused HENMT: COMMON NORMALS: normocephalic, atraumatic and external ears normal HEAD & SCALP: normocephalic and atraumatic EXTERNAL EAR: Yes external ears normal MOUTH: Normal oral and palatal mucosa present THROAT: posterior oropharynx normal Eye: COMMON NORMALS: Equal, round and reactive pupils present and conjunctivae normal CONJUNCTIVA: Yes conjunctivae normal PUPIL: Yes Equal, round and reactive pupils present EOM: No EOM abnormal Neck/C-Spine: COMMON NORMALS: Thyroid normal GENERAL: Yes normal visual inspection and Yes trachea midline THYROID: Thyroid normal CAROTIDS: No bruit Lymph: LYMPHATIC: No lymphadenopathy Resp: OTHER: CTAB with no wheezes rales or rhonchi Cardio: OTHER: Regular rate and rhythm with no murmurs, rubs, gallops or clicks. : OTHER: Bowel sounds positive, nontender, nondistended, no rigidity, no guarding, no rebound tenderness or hepatosplenomegaly appreciated. Extremity: NARRATIVE EXTREMITY EXAM: No clubbing, cyanosis, or pedal edema. Neuro: SENSORIUM/ORIENTATION: Yes oriented to person and Yes Orientation impaired CRANIAL NERVES: Yes CN normal except as noted SPEECH: speech normal (But slow) SENSORY EXAM: No sensory level loss detected MOTOR EXAM: 5/5 motor strength present throughout and Normal motor muscle tone present throughout Psych: APPEARANCE: Yes unkempt ATTITUDE: Yes calm and Yes engaged SPEECH: Yes slow MOOD & AFFECT: Yes Flat affect present THOUGHT PROCESS: Other thought process findings present (Difficult to assess. Process and content) Skin: COMMON NORMALS: no rashes or lesions noted GENERAL SKIN EXAM: no rashes or lesions noted Data 03/19/23 05:34 03/19/23 05:34 A&P Assessment and plan (1) CVA (cerebral vascular accident): Qualifiers: CVA mechanism: unspecified Qualified Code(s): I63.9 - Cerebral infarction, unspecified (2) MDS (myelodysplastic syndrome), high grade: (3) Macrocytic anemia: (4) Pancytopenia: (5) Prostate cancer: Plan Russell Hancock is a 72 yo man w/ Prostate cancer s/p brachytherapy w/ seed implants, High grade Myelodysplastic Syndrome & Paroxysmal Nocturnal Hemoglobinuria pending treatment initiation, who presented to [facility] ED on 03/17/2023 with complaints of confusion and short term memory loss, such as not remembering the year or not being able to find his keys, throughout the day. In the ED, he had 1 episode of tachycardia. His initial EKG showed NSR, with no ST changes, QTc of 439, and LVH. His initial Trop T was 207, with repeats of 226.4 and 222.6. His TSH was 2.04, his head CT showed no evidence of intracranial hemorrhage, but it did show concern for subacute ischemia in the left posterior superior temporal lobe. His CXR showed findings concerning for obstructive lung disease and chronic changes of interstitial fibrosis, pleural plaque formation and pleural thickening in the upper lung zones. He was given Aspirin 324mg x 1 On admission, he was loaded w/ Plavix in addition to full dose Aspirin and stated on full dose Anticoagulation. An MRI brain was ordered that showed a moderate-sized acute ischemic infarct in the medial posterior L. temporal lobe, w/ additional smaller acute lacunar infarcts in the posterior L. temporal lobe and the R. cerebellum. Given the separate arterial distributions of the infarcts, a central embolic event was suggested as a potential source of concern. The MRI also showed a large remote R. Parietal occipital region with encephalomalacia and volume loss as well as a smaller remote infarct in the posterior left frontal lobe. A carotid duplex ultrasound was done that showed less than 50% bilateral ICA stenosis. A CTA head and neck was done that showed a R. Proximal ICA stenosis measuring approximately 40%, no significant L. ICA stenosis, patent bilateral vertebral arteries and basilar arteries, and moderate stenosis at the R. P1-2 segmen w/ decreased flow distally in the R. RELEASE SPECIALIST territory. There is normal vascularity to the left RELEASE SPECIALIST territory. Given the findings on his CXR, as well as concern for an embolic source of his stroke, a CTA chest abdomen and pelvis were ordered, to also rule out malignancy. The CTA chest abdomen and pelvis a 1.3 cm stable noncalcified ovoid nodule on the L. lower lobe. L>R Bronchiectasis in the upper lobes w/ scattered areas of fibrosis. It also showed fibrosis in the mando apices w/ pleural plaques. His TTE showed an LVEF of 50 to 55% with no regional wall motion abnormalities, but grade 1 diastolic dysfunction, mild to moderate tricuspid regurg, moderate mitral valve regurg, and mild pulmonary valve regurg. No pericardial effusion or intracardiac masses were noted. Cardiology was consulted, who planned for a EVELYN. Neurology was also consulted. Cardiology and Neurology recommended a consult with the patient's Hematology/Oncologist. The patient's hematology oncologist, Dr. Figueroa visited the patient on 03/19/2023. I also spoke with the oncologist, who suggested that the patient's PNH could also be the etiology of his embolic CVAs. He emphasized the need for the patient to start the biologic, Ravilizumab. He also mentioned that the patient did not seem to recall going to [place], where he was diagnosed, and where Ravulizumab was recommended. The hematology oncologist was committed to following the patient as outpatient to try to help him start the medication. A EVELYN was done on 03/20/2023 that showed no left ventricular (LV), left atrial/left atrial appendage (LA/MARGO) thrombus, and no ASD or PFO. Per cardiology, the source of his strokes are likely due to his underlying PNH. At this time cardiology signed off, but suggested conducting a stress test on the patient as outpatient. #Altered Mental Status #Embolic CVAs w/ Possibly Short and group home Cognitive Deficits. 1) Acute medial posterior L. temporal lobe ischemic CVA 2) smaller acute lacunar infarcts in the posterior L. temporal lobe and the R. cerebellum - Unclear etiology - Consulted Heme/Onc. Neurology & Cardioloy consulted. - EVELYN done on 03/20/2023 was negative for a left ventricular (LV), left atrial/left atrial appendage (LA/MARGO) thrombus, and no ASD or PFO - D/c'ed Plavix. Continue daily Aspirin and full dose Lovenox. - A1c of 4.8. LDL of 76. -His modified barium swallow study was unremarkable. - Patient's cognitive deficits and short as well as group home memory losses are such that I truly question whether he has capacity to make decisions. #Hx of CVAS: Noted on MRI 1) An OLD Large remote R. Parietal occipital region with encephalomalacia and volume loss as well as 2)a smaller remote infarct in the posterior left frontal lobe. #NSTEMI: ACS protocol initiated. Telemetry monitoring ordered. Cardiology consulted. Will hold Plavix. #High grade Myelodysplastic Syndrome & #Paroxysmal Nocturnal Hemoglobinuria: - Per HEme/Onc notes, the patient has been hesitant to start treatment initiation. - Patient's Oncologist visi #Dyspnea: It may be why he is on Tiotropium. #UA w/ bacteriuria: UCx is negative. #BPH: PSA <0.014 on 03/18/2023 #Moderate vs Severe Protein Calorie Malnutrition: Will consult Train Control Electronic Technician for assessment and supplement recommendation. DVT ppx: On full dose Lovenox. Attestations Medical Necessity Statement*: Patient remains hospitalized for a nuclear medicine cardiac stress test as well as for a complex discharge given that the patient's capacity is in question. Coding Level of Care Code 86535 Diagnoses CVA (cerebral vascular accident) I63.9 CVA mechanism: unspecified MDS (myelodysplastic syndrome), high grade D46.Z Macrocytic anemia D53.9 Pancytopenia D61.818 Prostate cancer C61
[2023-03-23] VITALS (10 sets, daily range): BP systolic 105–146; BP diastolic 55–73; PULSE 58–85; RESP 15–16; TEMP 36.6–37.2; O2SAT 91–100; BMI 18.7
--- NOTE | 2023-03-23 02:26 | PC.NURSE ---
Assumed care of the pt at this time.
[2023-03-23 09:50] LABS: Basophils % 0.5 %; Eosinophils # 0.1 10^3/uL (0.0-0.8); Eosinophils % 1.3 %; Hematocrit 31.1 % (37-53); Lymphocytes # 0.9 10^3/uL (0.8-4.8); Lymphocytes % 23.2 %; Mean Corpuscular HGB Conc 32.8 g/dL (30-55); Mean Corpuscular Hemoglobin 36.2 pg (27-33); Mean Corpuscular Volume 110.3 fl (82-101); Mean Platelet Volume 12.8 fL (7.4-10.4); Monocytes # 0.2 10^3/uL (0.2-0.9); Monocytes % 5.9 %; Neutrophils # 2.66 10^3/uL (1.8-7.7); Neutrophils % 68.6 %; Nucleated Red Blood Cells % 0 %; Platelet Count 108 10^3/cmm (157-399); Red Blood Count 2.82 10^6/uL (3.85-5.65); Red Cell Distribution Width 17.5 % (12.1-15.1); White Blood Count 3.88 10^3/uL (3.29-11.43)
[2023-03-23] MEDS: enoxaparin 60 mg/0.6 mL Syringe 50 MG SUBCUT (10:20)
[2023-03-23] MEDS: pantoprazole DR 40 mg Tablet PO (10:20)
[2023-03-23] MEDS: aspirin 81 mg EC Tablet PO (10:20)
[2023-03-23 10:44] LABS: Alanine Aminotransferase 49 U/L (0-41); Albumin Level 3.9 g/dL (3.5-5.2); Alkaline Phosphatase 122 U/L (40-130); Anion Gap 13.3 (5-19); Aspartate Amino Transferase 92 U/L (0-40); Blood Urea Nitrogen 14 mg/dL (8-23); Calcium 8.9 mg/dL (8.5-10.5); Carbon Dioxide 27 mmol/L (22-29); Chloride 101 mmol/L (98-107); Globulin 3.4 g/dL (1.3-4.6); Glucose 110 mg/dL (65-115); Magnesium 1.9 mg/dL (1.7-2.3); Osmolality Calculated 285 mOsm/kg (285-295); Phosphorus 2.5 mg/dL (2.5-4.5); Potassium 4.3 mmol/L (3.5-5.1); Sodium 137 mmol/L (136-145); Total Bilirubin 4.1 mg/dL (0.15-1.2); Total Protein 7.3 g/dL (6.6-8.7)
--- NOTE | 2023-03-23 12:26 | PC.SOCIAL ---
IMM Updated Updated pt on IMM. No questions voiced. Provided pt a copy. Initialed, dated, & timed copy in chart.
--- NOTE | 2023-03-23 15:34 | P.PN_ITS ---
Subjective 2 Subjective: Patient without complaints. Seen sitting up in bed watching TV. Says I do not know to most questions. No family present. Vitals/I&O/Wt Last Vital Signs Temp 98.5 F 03/23/23 13:00 Pulse 75 03/23/23 13:00 Resp 16 03/23/23 13:00 BP 107/55 03/23/23 13:00 Pulse Ox 98 03/23/23 13:00 O2 Del Method Room Air 03/23/23 03:14 O2 Flow Rate 4 03/20/23 13:23 Weight last 48 hrs Weight 55.792 kg Weight 55.849 kg Physical Exam 2 Narrative: Alert oriented to self only. Poor memory. No motor or sensory deficits Heart regular normal S1-S2 without murmurs clicks gallops or rubs Lungs clear to auscultation without wheezes rales or rhonchi Abdomen flat soft nontender nondistended positive bowel Extremities no clubbing cyanosis or edema Data 03/23/23 09:30 03/23/23 09:30 A&P Assessment and plan (1) CVA (cerebral vascular accident): Due to paroxysmal nocturnal hemoglobinuria. Patient has declined treatment in the past. Dr. Figueroa sees the patient locally and will continue to discuss with patient and now family. Qualifiers: CVA mechanism: unspecified Qualified Code(s): I63.9 - Cerebral infarction, unspecified (2) Paroxysmal nocturnal hemoglobinuria: Requires treatment due to CVA. (3) MDS (myelodysplastic syndrome), high grade: Plan Patient appears unable to care for himself at home at this time. Family is available and will defer to case management to discuss with patient and family regarding discharge plans. I do suspect that his memory and cognitive function will improve with time poststroke. Will await family decision but will likely need 24-hour care for short-term. If family unable to provide will need permanent placement as he only has 1 therapy needed at this time. Attestations 2 Medical Necessity Statement*: To determine discharge plan. Coding Level of Care Code Acute Code for Chg Fwd Diagnoses CVA (cerebral vascular accident) I63.9 CVA mechanism: unspecified Paroxysmal nocturnal hemoglobinuria D59.5 MDS (myelodysplastic syndrome), high grade D46.Z
[2023-03-23] MEDS: atorvastatin 40 mg Tablet 80 MG PO (20:21)
[2023-03-24] VITALS (11 sets, daily range): BP systolic 109–144; BP diastolic 58–66; PULSE 62–99; RESP 15–17; TEMP 36.6–37; O2SAT 97–100
[2023-03-24 06:51] LABS: Alanine Aminotransferase 35 U/L (0-41); Albumin Level 3.6 g/dL (3.5-5.2); Alkaline Phosphatase 107 U/L (40-130); Aspartate Amino Transferase 56 U/L (0-40); Blood Urea Nitrogen 17 mg/dL (8-23); Calcium 8.7 mg/dL (8.5-10.5); Carbon Dioxide 28 mmol/L (22-29); Chloride 99 mmol/L (98-107); Globulin 2.6 g/dL (1.3-4.6); Glucose 96 mg/dL (65-115); Osmolality Calculated 281 mOsm/kg (285-295); Sodium 135 mmol/L (136-145); Total Protein 6.2 g/dL (6.6-8.7)
[2023-03-24 06:56] LABS: Anion Gap 11.7 (5-19); Potassium 3.7 mmol/L (3.5-5.1)
[2023-03-24] MEDS: clopidogrel 75 mg Tablet PO (10:42)
[2023-03-24] MEDS: aspirin 81 mg EC Tablet PO (10:43)
--- NOTE | 2023-03-24 14:40 | P.PN_ITS ---
Subjective 2 Subjective: seen this am resting comfortably in bed says he is ready to go to [place] when able Vitals/I&O/Wt Last Vital Signs Temp 97.8 F 03/24/23 11:15 Pulse 99 03/24/23 14:00 Resp 16 03/24/23 11:15 BP 127/63 03/24/23 11:15 Pulse Ox 99 03/24/23 11:15 O2 Del Method Room Air 03/24/23 11:15 O2 Flow Rate 4 03/20/23 13:23 03/23/23 03/24/23 03/24/23 22:59 06:59 14:59 Intake Total 100 / 320 Balance 100 / 320 Weight last 48 hrs Weight 55.792 kg Weight 55.792 kg Physical Exam 2 Narrative: Alert oriented to self only. Poor memory. No motor or sensory deficits Heart regular normal S1-S2 without murmurs clicks gallops or rubs Lungs clear to auscultation without wheezes rales or rhonchi Abdomen flat soft nontender nondistended positive bowel Extremities no clubbing cyanosis or edema Data 03/23/23 09:30 03/24/23 05:57 A&P Assessment and plan (1) CVA (cerebral vascular accident): Due to paroxysmal nocturnal hemoglobinuria. Patient has declined treatment in the past. Dr. Figueroa sees the patient locally and will continue to discuss with patient and now family. Qualifiers: CVA mechanism: unspecified Qualified Code(s): I63.9 - Cerebral infarction, unspecified (2) Paroxysmal nocturnal hemoglobinuria: Requires treatment due to CVA. (3) MDS (myelodysplastic syndrome), high grade: Plan Patient appears unable to care for himself at home at this time. Family is available and will defer to case management to discuss with patient and family regarding discharge plans. I do suspect that his memory and cognitive function will improve with time poststroke. Will await family decision but will likely need 24-hour care for short-term. If family unable to provide will need permanent placement as he only has 1 therapy needed at this time. Attestations 2 Medical Necessity Statement*: awaiting placement Diagnoses CVA (cerebral vascular accident) I63.9 CVA mechanism: unspecified Paroxysmal nocturnal hemoglobinuria D59.5 MDS (myelodysplastic syndrome), high grade D46.Z
[2023-03-24] MEDS: atorvastatin 40 mg Tablet 80 MG PO (20:29)
[2023-03-25] VITALS (11 sets, daily range): BP systolic 100–179; BP diastolic 60–77; PULSE 70–93; RESP 15–18; TEMP 36.6–37.4; O2SAT 98–100
--- NOTE | 2023-03-25 04:19 | ECG_ITS ---
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 Measurements Intervals [place] Rate: 79 P: 75 DC: 135 QRS: 66 QRSD: 81 T: 55 QT: 383 QTc: 440 Interpretive Statements SINUS RHYTHM WITH OCCASIONAL VENTRICULAR PREMATURE COMPLEXES WITH OCCASIONAL SUPRAVENTRICULAR PREMATURE COMPLEXES MINIMAL VOLTAGE CRITERIA FOR LVH, CONSIDER NORMAL VARIANT SEPTAL MYOCARDIAL INFARCTION , OF INDETERMINATE AGE Compared to ECG 03/17/2023 16:13:57 Ventricular premature complex(es) now present Myocardial infarct finding now present Electronically Signed On 03-25-2023 11:05:54 TACK WELDER by Nohemy Junior M.D. [email or web address]
[2023-03-25 06:44] LABS: Alanine Aminotransferase 34 U/L (0-41); Albumin Level 4.3 g/dL (3.5-5.2); Alkaline Phosphatase 135 U/L (40-130); Aspartate Amino Transferase 67 U/L (0-40); Blood Urea Nitrogen 17 mg/dL (8-23); Calcium 9.2 mg/dL (8.5-10.5); Carbon Dioxide 27 mmol/L (22-29); Chloride 98 mmol/L (98-107); Globulin 2.7 g/dL (1.3-4.6); Glucose 101 mg/dL (65-115); Osmolality Calculated 282 mOsm/kg (285-295); Sodium 135 mmol/L (136-145); Total Bilirubin 4.4 mg/dL (0.15-1.2)
[2023-03-25 06:51] LABS: Anion Gap 13.9 (5-19); Potassium 3.9 mmol/L (3.5-5.1)
[2023-03-25] MEDS: clopidogrel 75 mg Tablet PO (10:13)
[2023-03-25] MEDS: aspirin 81 mg EC Tablet PO (10:13)
--- NOTE | 2023-03-25 13:38 | PC.SOCIAL ---
IMM Updated Updated pt & family on IMM. No questions voiced. Provided pt a copy. Initialed, dated, & timed copy in chart.
--- NOTE | 2023-03-25 14:16 | P.PN_ITS ---
Subjective 2 Subjective: seen today no acute events overnight seen standing up in room walking around Vitals/I&O/Wt Last Vital Signs Temp 97.8 F 03/25/23 12:00 Pulse 77 03/25/23 12:00 Resp 16 03/25/23 12:00 BP 104/60 03/25/23 12:00 Pulse Ox 100 03/25/23 12:00 O2 Del Method Room Air 03/25/23 08:00 O2 Flow Rate 4 03/20/23 13:23 03/24/23 03/25/23 03/25/23 22:59 06:59 14:59 Intake Total 240 / 240 360 / 360 Balance 240 / 240 360 / 360 Weight last 48 hrs Weight 55.792 kg Physical Exam 2 Narrative: Alert oriented to self only. Poor memory. No motor or sensory deficits Heart regular normal S1-S2 without murmurs clicks gallops or rubs Lungs clear to auscultation without wheezes rales or rhonchi Abdomen flat soft nontender nondistended positive bowel Extremities no clubbing cyanosis or edema Data 03/23/23 09:30 03/25/23 06:12 A&P Assessment and plan (1) CVA (cerebral vascular accident): Due to paroxysmal nocturnal hemoglobinuria. Patient has declined treatment in the past. Dr. Figueroa sees the patient locally and will continue to discuss with patient and now family. Qualifiers: CVA mechanism: unspecified Qualified Code(s): I63.9 - Cerebral infarction, unspecified (2) Paroxysmal nocturnal hemoglobinuria: Requires treatment due to CVA. (3) MDS (myelodysplastic syndrome), high grade: Plan Patient appears unable to care for himself at home at this time. Family is available and will defer to case management to discuss with patient and family regarding discharge plans. I do suspect that his memory and cognitive function will improve with time poststroke. Will await family decision but will likely need 24-hour care for short-term. If family unable to provide will need permanent placement as he only has 1 therapy needed at this time. Attestations 2 Medical Necessity Statement*: pending placement Diagnoses CVA (cerebral vascular accident) I63.9 CVA mechanism: unspecified Paroxysmal nocturnal hemoglobinuria D59.5 MDS (myelodysplastic syndrome), high grade D46.Z
[2023-03-25] MEDS: atorvastatin 40 mg Tablet 80 MG PO (20:56)
[2023-03-26 03:37] VITALS: BP 138/65; PULSE 78; RESP 16; TEMP 37.1; O2SAT 99
[2023-03-26 05:57] VITALS: PULSE 72
[2023-03-26 05:57] LABS: Basophils % 0.3 %; Eosinophils % 0.9 %; Hematocrit 29.3 % (37-53); Lymphocytes # 0.7 10^3/uL (0.8-4.8); Lymphocytes % 22.7 %; Mean Corpuscular HGB Conc 32.4 g/dL (30-55); Mean Platelet Volume 11.7 fL (7.4-10.4); Monocytes # 0.2 10^3/uL (0.2-0.9); Monocytes % 5.8 %; Neutrophils # 2.28 10^3/uL (1.8-7.7); Nucleated Red Blood Cells % 0 %; Platelet Count 116 10^3/cmm (157-399); Red Blood Count 2.64 10^6/uL (3.85-5.65); Red Cell Distribution Width 17.9 % (12.1-15.1); White Blood Count 3.26 10^3/uL (3.29-11.43)
[2023-03-26 06:16] LABS: Blood Urea Nitrogen 14 mg/dL (8-23); Calcium 8.9 mg/dL (8.5-10.5); Carbon Dioxide 29 mmol/L (22-29); Chloride 103 mmol/L (98-107); Osmolality Calculated 292 mOsm/kg (285-295); Sodium 140 mmol/L (136-145)
[2023-03-26 06:21] LABS: Anion Gap 11.7 (5-19); Potassium 3.7 mmol/L (3.5-5.1)
[2023-03-26 06:22] LABS: Glucose 124 mg/dL (65-115)
[2023-03-26 07:01] VITALS: BP 99/62; PULSE 75; RESP 16; TEMP 36.7; O2SAT 98
[2023-03-26 08:00] VITALS: PULSE 75; RESP 16; O2SAT 98
[2023-03-26] MEDS: aspirin 81 mg EC Tablet PO (08:01)
[2023-03-26] MEDS: clopidogrel 75 mg Tablet PO (08:01)
[2023-03-26 11:33] VITALS: BP 107/64; PULSE 70; RESP 16; TEMP 37.2; O2SAT 98
--- NOTE | 2023-03-26 14:36 | PM.DCS ---
Discharge Providers Date of Admission: 03/17/23 17:33 Date of Discharge: March 26, 2023 Attending Provider at Admission: Alivia Posadas MD Attending Provider at Discharge: Lenore Shabazz MD Primary Care Provider: Susy Cantrell MD Diagnoses at Discharge Discharge Diagnosis (1) CVA (cerebral vascular accident): Status: Acute Qualifiers: CVA mechanism: unspecified Qualified Code(s): I63.9 - Cerebral infarction, unspecified (2) Paroxysmal nocturnal hemoglobinuria: Status: Acute (3) MDS (myelodysplastic syndrome), high grade: Status: Acute Reason for Visit Reason for Visit: disoriented Hospital Course Hospital Course Russell Hancock is a 72 yo man w/ Prostate cancer s/p brachytherapy w/ seed implants, High grade Myelodysplastic Syndrome & Paroxysmal Nocturnal Hemoglobinuria pending treatment initiation, who presented to [facility] ED on 03/17/2023 with complaints of confusion and short term memory loss, such as not remembering the year or not being able to find his keys, throughout the day. In the ED, he had 1 episode of tachycardia. His initial EKG showed NSR, with no ST changes, QTc of 439, and LVH. His initial Trop T was 207, with repeats of 226.4 and 222.6. His TSH was 2.04, his head CT showed no evidence of intracranial hemorrhage, but it did show concern for subacute ischemia in the left posterior superior temporal lobe. His CXR showed findings concerning for obstructive lung disease and chronic changes of interstitial fibrosis, pleural plaque formation and pleural thickening in the upper lung zones. He was given Aspirin 324mg x 1 On admission, he was loaded w/ Plavix in addition to full dose Aspirin and stated on full dose Anticoagulation. An MRI brain was ordered that showed a moderate-sized acute ischemic infarct in the medial posterior L. temporal lobe, w/ additional smaller acute lacunar infarcts in the posterior L. temporal lobe and the R. cerebellum. Given the separate arterial distributions of the infarcts, a central embolic event was suggested as a potential source of concern. The MRI also showed a large remote R. Parietal occipital region with encephalomalacia and volume loss as well as a smaller remote infarct in the posterior left frontal lobe. A carotid duplex ultrasound was done that showed less than 50% bilateral ICA stenosis. A CTA head and neck was done that showed a R. Proximal ICA stenosis measuring approximately 40%, no significant L. ICA stenosis, patent bilateral vertebral arteries and basilar arteries, and moderate stenosis at the R. P1-2 segmen w/ decreased flow distally in the R. PHARMACY GENERAL MANAGER territory. There is normal vascularity to the left PHARMACY GENERAL MANAGER territory. Given the findings on his CXR, as well as concern for an embolic source of his stroke, a CTA chest abdomen and pelvis were ordered, to also rule out malignancy. The CTA chest abdomen and pelvis a 1.3 cm stable noncalcified ovoid nodule on the L. lower lobe. L>R Bronchiectasis in the upper lobes w/ scattered areas of fibrosis. It also showed fibrosis in the mando apices w/ pleural plaques. His TTE showed an LVEF of 50 to 55% with no regional wall motion abnormalities, but grade 1 diastolic dysfunction, mild to moderate tricuspid regurg, moderate mitral valve regurg, and mild pulmonary valve regurg. No pericardial effusion or intracardiac masses were noted. Cardiology was consulted, who planned for a EVELYN. Neurology was also consulted. Cardiology and Neurology recommended a consult with the patient's Hematology/Oncologist. The patient's hematology oncologist, Dr. Figueroa visited the patient on 03/19/2023. I also spoke with the oncologist, who suggested that the patient's PNH could also be the etiology of his embolic CVAs. He emphasized the need for the patient to start the biologic, Ravilizumab. He also mentioned that the patient did not seem to recall going to [place], where he was diagnosed, and where Ravulizumab was recommended. The hematology oncologist was committed to following the patient as outpatient to try to help him start the medication. A EVELYN was done on 03/20/2023 that showed no left ventricular (LV), left atrial/left atrial appendage (LA/MARGO) thrombus, and no ASD or PFO. Per cardiology, the source of his strokes are likely due to his underlying PNH. At this time cardiology signed off, but suggested conducting a stress test on the patient as outpatient. He will discharged home with family. Physical Exam Narrative: Alert oriented to self only. Poor memory. No motor or sensory deficits Heart regular normal S1-S2 without murmurs clicks gallops or rubs Lungs clear to auscultation without wheezes rales or rhonchi Abdomen flat soft nontender nondistended positive bowel Extremities no clubbing cyanosis or edema Discharge Data Studies Completed and Pending Completed Studies During Hospitalization Category Date Time Status CT head wo con* [id number] Stat Cat Scan 03/17/23 13:47 Completed CTA chest abdomen pelvis [CT ang ches abdpel 75838/ Cat Scan 03/18/23 08:03 Completed 90413] Routine CTA head neck [CT angio headneck* [id number]/13666] Routine Cat Scan 03/18/23 07:56 Completed Modified barium swallow [[place] barium swallow modifd [id number] Exams 03/18/23 08:08 Completed ] Routine XR chest 1V portable [id number] Stat Exams 03/17/23 13:40 Completed MR head wo con* [id number] Routine MRI 03/18/23 07:00 Completed CV carotid duplex BI* [id number] Routine Ultrasound 03/17/23 21:11 Completed CV. echo complete* [id number] Routine Ultrasound 03/17/23 21:08 Completed CV. echo transesophageal [id number] Routine Ultrasound 03/20/23 13:00 Completed Laboratory Results WBC 3.26 10^3/uL (3.29-11.43) L 03/26/23 05:48 RBC 2.64 10^6/uL (3.85-5.65) L 03/26/23 05:48 Hgb 9.50 g/dL (11.27-16.99) L 03/26/23 05:48 Hct 29.3 % (37-53) L 03/26/23 05:48 MCV 111.0 fl (82-101) H 03/26/23 05:48 MCH 36.0 pg (27-33) H 03/26/23 05:48 MCHC 32.4 g/dL (30-55) 03/26/23 05:48 RDW 17.9 % (12.1-15.1) H 03/26/23 05:48 Plt Count 116 10^3/cmm (157-399) L 03/26/23 05:48 MPV 11.7 fL (7.4-10.4) H 03/26/23 05:48 Neut % (Auto) 70.0 % 03/26/23 05:48 Lymph % (Auto) 22.7 % 03/26/23 05:48 [place] % (Auto) 5.8 % 03/26/23 05:48 Eos % (Auto) 0.9 % 03/26/23 05:48 Baso % (Auto) 0.3 % 03/26/23 05:48 Neut # (Auto) 2.28 10^3/uL (1.8-7.7) 03/26/23 05:48 Lymph # (Auto) 0.7 10^3/uL (0.8-4.8) L 03/26/23 05:48 [place] # (Auto) 0.2 10^3/uL (0.2-0.9) 03/26/23 05:48 Eos # (Auto) 0.0 10^3/uL (0.0-0.8) 03/26/23 05:48 Baso # (Auto) 0.0 10^3/uL (0.0-0.1) 03/26/23 05:48 Nucleated RBC % (auto) 0 % 03/26/23 05:48 Nucleated RBCs # 0.0 /100WBC 03/26/23 05:48 PT 13.90 SECONDS (12.1-14.9) 03/18/23 08:38 INR 1.04 (0.8-1.2) 03/18/23 08:38 APTT 25.1 SECONDS (23.9-36.7) 03/18/23 08:38 D-Dimer 0.41 ug/mLFEU (0-0.59) 03/17/23 22:13 Specimen Type Arterial 03/17/23 22:19 Sample Site Radial, left 03/17/23 22:19 ABG pH 7.46 (7.35-7.45) H 03/17/23 22:19 ABG pCO2 41.5 mmHg (35-45) 03/17/23 22:19 ABG pO2 91.7 mmHg (80.0-100.0) 03/17/23 22:19 ABG HCO3 29.5 mmol/L (22-26) H 03/17/23 22:19 ABG Base Excess 5.2 mmol/L (-2.0-2.0) H 03/17/23 22:19 Mert Test Pos 03/17/23 22:19 Hematocrit 31.8 % (42-52) L 03/17/23 22:19 O2 Delivery Device Room air 03/17/23 22:19 Cook'S Assistant ID [email or web address] 03/17/23 22:19 Sodium 140 mmol/L (136-145) 03/26/23 05:48 Potassium 3.7 mmol/L (3.5-5.1) 03/26/23 05:48 Chloride 103 mmol/L (98-107) 03/26/23 05:48 Carbon Dioxide 29 mmol/L (22-29) 03/26/23 05:48 Anion Gap 11.7 (5-19) 03/26/23 05:48 BUN 14 mg/dL (8-23) 03/26/23 05:48 Creatinine 0.8 mg/dL (0.7-1.2) 03/26/23 05:48 GFR Calculation Not Reportable 03/26/23 05:48 Glucose 124 mg/dL (65-115) H 03/26/23 05:48 POC Glucose 98 mg/dL (70-110) 03/17/23 13:57 Estimat Average Glucose 91 03/17/23 22:13 Hemoglobin A1c 4.8 % (4.0-6.0) 03/17/23 22:13 Calculated Osmolality 292 mOsm/kg (285-295) 03/26/23 05:48 Calcium 8.9 mg/dL (8.5-10.5) 03/26/23 05:48 Phosphorus 2.5 mg/dL (2.5-4.5) 03/23/23 09:30 Magnesium 1.9 mg/dL (1.7-2.3) 03/23/23 09:30 Total Bilirubin 4.4 mg/dL (0.15-1.2) H 03/25/23 06:12 Direct Bilirubin 0.30 mg/dL (0.00-0.30) 03/20/23 05:01 AST 67 U/L (0-40) H 03/25/23 06:12 ALT 34 U/L (0-41) 03/25/23 06:12 Alkaline Phosphatase 135 U/L (40-130) H 03/25/23 06:12 Ammonia 45 umol/L (16-60) 03/17/23 22:13 Troponin T 5th Gen ng/L 251 ng/L (0-15) H* 03/18/23 03:10 Troponin T Baseline 207 ng/L (0-15) H* 03/17/23 14:10 Troponin T 120 Minute 226.4 ng/L (0-15) H 03/17/23 16:04 Delta Troponin T 19.4 ABS# (0-10) H* 03/17/23 16:04 Troponin T Hi Sens 6Hr 222.6 ng/L (0-15) H 03/17/23 20:11 Troponin T Hi Sens 6Hr Delta 15.6 ng/L (0-12) H* 03/17/23 20:11 C-Reactive Protein 3.0 mg/L (0.0-4.9) 03/18/23 03:10 Total Protein 7.0 g/dL (6.6-8.7) 03/25/23 06:12 Albumin 4.3 g/dL (3.5-5.2) 03/25/23 06:12 Globulin 2.7 g/dL (1.3-4.6) 03/25/23 06:12 Triglycerides 77 mg/dL (0-150) 03/18/23 03:10 Cholesterol 150 mg/dL (0-200) 03/18/23 03:10 LDL Cholesterol, Calc 76 mg/dL (50-129) 03/18/23 03:10 HDL Cholesterol 59 mg/dL (60-100) L 03/18/23 03:10 LDL/HDL Ratio 1.29 RATIO (0.00-3.22) 03/18/23 03:10 Cholesterol/HDL Ratio 2.54 mg/dL (1.0-5.00) 03/18/23 03:10 Prostate Specific Ag < 0.014 ng/mL (0-4) 03/18/23 03:10 Vitamin B12 391 pg/mL (232-1245) 03/17/23 22:13 Procalcitonin 0.03 ng/mL (0-0.5) 03/17/23 22:13 TSH 4.07 uIU/mL (0.27-4.20) 03/17/23 22:13 Urine Color Yellow (Yellow) 03/17/23 14:30 Urine Appearance Clear (CLEAR) 03/17/23 14:30 Urine pH 6 (5-7) 03/17/23 14:30 Ur Specific [place] 1.015 (1.005-1.030) 03/17/23 14:30 Urine Protein Trace (Negative) 03/17/23 14:30 Urine Glucose (UA) Norm (Normal) 03/17/23 14:30 Urine Ketones 1+ (Negative) H 03/17/23 14:30 Urine Blood 2+ (Negative) H 03/17/23 14:30 Urine Nitrate Negative (Negative) 03/17/23 14:30 Urine Bilirubin Neg (Negative) 03/17/23 14:30 Urine Urobilinogen Norm mg/dL (Negative) 03/17/23 14:30 Ur Leukocyte Esterase Negative (Negative) 03/17/23 14:30 Urine RBC 0-4 /hpf (0-2) H 03/17/23 14:30 Urine WBC 0-4 /hpf (0-5) H 03/17/23 14:30 Ur Squamous Epith Cells 0-4 /hpf (0-5) H 03/17/23 14:30 Amorphous Sediment 1+ /hpf 03/17/23 14:30 Urine Bacteria Trace /hpf (NONE) 03/17/23 14:30 Urine Mucus 1+ /hpf 03/17/23 14:30 Urine Opiates Screen Negative ng/mL (Negative) 03/17/23 14:30 Ur Barbiturates Screen Negative ng/mL (Negative) 03/17/23 14:30 Ur Phencyclidine Scrn Negative ng/mL (Negative) 03/17/23 14:30 Ur Amphetamines Screen Negative ng/mL (Negative) 03/17/23 14:30 U Benzodiazepines Scrn Negative ng/mL (Negative) 03/17/23 14:30 Urine Cocaine Screen Negative ng/mL (Negative) 03/17/23 14:30 U Marijuana (THC) Screen Positive ng/mL (Negative) H 03/17/23 14:30 Ethyl Alcohol < 10 mg/dL (0-10) 03/17/23 22:13 Vitals Last Vital Signs Temp 98.9 F 03/26/23 11:33 Pulse 70 03/26/23 11:33 Resp 16 03/26/23 11:33 BP 107/64 03/26/23 11:33 Pulse Ox 98 03/26/23 11:33 O2 Del Method Room Air 03/26/23 11:33 O2 Flow Rate 4 03/20/23 13:23 Discharge Plan Discharge Patient Disposition: Home Condition: Stable Prescriptions: New atorvastatin 40 mg Tablet 80 mg PO BEDTIME Qty: 60 0RF Eliquis 5 mg tablet 5 mg PO BID Qty: 60 0RF Continued cholecalciferol (vitamin D3) 10 mcg (400 unit) capsule 10 mcg PO DAILY tamsulosin 0.4 mg capsule 0.4 mg PO DAILY Spiriva with HandiHaler 18 mcg capsule, w/inhalation device 1 cap inhalation DAILY Qty: 60 3RF Rx Instructions: puncture 1 cap using device; one dose = 2 inhalations aspirin [Aspir-81] 81 mg Tablet,Delayed Release (Dr/Ec) 81 mg PO DAILY Discontinued clopidogrel 75 mg tablet 75 mg PO DAILY atorvastatin 40 mg tablet 20 mg PO DAILY Discharge Orders: Discharge Order (Routine); Ordered 03/26/23 Ordered By: Lenore Shabazz Other Ambulatory Orders: Complete Blood Count w/Auto (Routine) Timeframe: 1 Week Location: Determined by Patient Ordered By: Lenore Shabazz Referrals: Susy Cantrell MD [Primary Care Provider] - 1 week Randy Figueroa MD [Hospitalist] - 7-10 days Discharge Diet: Cardiac Discharge Activity: Increase activity as tolerated Patient Instructions: Altered Mental Status (ED), Opioid Safety Discharge Attestations Time Spent in Discharge Care*: greater than 30 min Quality Metrics Clinical Quality Measures [ Cerebrovascular Accident { Contraindication to Antithrombotic: None; antithrombotic prescribed; Contraindication to Anticoagulation: None; anticoagulation prescribed; Contraindication to Statin: None; Statin prescribed;}] Coding Level of Care Code Acute Code for Chg Fwd Diagnoses CVA (cerebral vascular accident) I63.9 CVA mechanism: unspecified Paroxysmal nocturnal hemoglobinuria D59.5 MDS (myelodysplastic syndrome), high grade D46.Z
--- NOTE | 2023-03-26 16:00 | PC.NURSE ---
Patient is A&Ox3. Respirations even and non-labored on room air Patient's brother and sister in law at bedside. Reviewed patient's discharge with everyone at bedside. Patient and sister in law verbalized understanding of discharge orders including new medications and we reviewed what medications to stop. Patient pushed to private car
[2023-03-26 16:15] VITALS: BP 107/64; PULSE 70; RESP 16; TEMP 37.2; O2SAT 98
== END 2023-03-26 16:00 | disposition home or self-care (01) | DRG 64 ==
LOC: ER 15:25 → MEDSURG 17:34
PROVIDERS: Family Medicine; Internal Medicine; Internal Medicine Cardiovascular Disease; Admitting Provider Internal Medicine; Emergency Provider Emergency Medicine; PCP Family Medicine; Visit Provider Internal Medicine
PROC: (CPT 93312; principal; 2023-03-20 13:00)
DX: I63.40 Cerebral infarction due to embolism of unspecified cerebral artery (principal); E43 Unspecified severe protein-calorie malnutrition; I21.4 Non-ST elevation (NSTEMI) myocardial infarction; Z68.1 Body mass index [BMI] 19.9 or less, adult; D46.9 Myelodysplastic syndrome, unspecified; Z85.46 Personal history of malignant neoplasm of prostate; Z92.3 Personal history of irradiation; D59.5 Paroxysmal nocturnal hemoglobinuria [Marchiafava-Micheli]; Z79.02 Long term (current) use of antithrombotics/antiplatelets; I10 Essential (primary) hypertension; Z86.73 Personal history of transient ischemic attack (TIA), and cerebral infarction without residual deficits; R91.8 Other nonspecific abnormal finding of lung field; G93.89 Other specified disorders of brain; J84.10 Pulmonary fibrosis, unspecified
CPT/HCPCS: 36415; 36416; 36600; 70450; 70496; 70498; 70551; 71045; 71275; 74174; 74230; 80048; 80053; 80061; 80076; 80306; 80307; 81001; 82140; 82607; 82803; 82962; 83036; 83735; 84100; 84145; 84153; 84443; 84484; 85025; 85378; 85610; 85730; 86140; 87086; 92507; 92523; 92526; 92610; 92611; 93005; 93306; 93312; 93320; 93325; 93880; 96372; 97110; 97161; 97165; 97168; 97530; 99285; J1650; J2060; J2704; J3411; J7030; Q9967

== ENCOUNTER 2023-04-08 07:50 | Oncology outpatient (recurring) (ONCR) | payer OTHER, SELFPAY ==
[2023-04-08 08:17] VITALS: BP 116/59; PULSE 72; RESP 17; TEMP 36.6; O2SAT 98
[2023-04-08 08:34] LABS: Basophils % 0.7 %; Eosinophils % 1.1 %; Hematocrit 31.2 % (37-53); Lymphocytes # 0.8 10^3/uL (0.8-4.8); Lymphocytes % 30.6 %; Mean Corpuscular HGB Conc 32.4 g/dL (30-55); Mean Corpuscular Hemoglobin 36.3 pg (27-33); Mean Corpuscular Volume 112.2 fl (82-101); Mean Platelet Volume 11.5 fL (7.4-10.4); Monocytes # 0.2 10^3/uL (0.2-0.9); Monocytes % 6.3 %; Neutrophils # 1.64 10^3/uL (1.8-7.7); Neutrophils % 61.3 %; Nucleated Red Blood Cells % 0 %; Platelet Count 158 10^3/cmm (157-399); Red Blood Count 2.78 10^6/uL (3.85-5.65); Red Cell Distribution Width 19.7 % (12.1-15.1); White Blood Count 2.68 10^3/uL (3.29-11.43)
[2023-04-08 09:27] LABS: Alanine Aminotransferase 18 U/L (0-41); Albumin Level 3.8 g/dL (3.5-5.2); Alkaline Phosphatase 114 U/L (40-130); Aspartate Amino Transferase 47 U/L (0-40); Blood Urea Nitrogen 17 mg/dL (8-23); Calcium 8.8 mg/dL (8.5-10.5); Carbon Dioxide 30 mmol/L (22-29); Chloride 104 mmol/L (98-107); Glucose 101 mg/dL (65-115); Osmolality Calculated 292 mOsm/kg (285-295); Sodium 140 mmol/L (136-145); Total Bilirubin 1.7 mg/dL (0.15-1.2); Total Protein 6.8 g/dL (6.6-8.7)
[2023-04-08 09:39] LABS: Anion Gap 10.1 (5-19); Potassium 4.1 mmol/L (3.5-5.1)
[2023-04-08 11:58] LABS: Lactate Dehydrogenase 981 U/L (135-225)
== END 2023-05-06 23:59 | disposition home or self-care (01) ==
PROVIDERS: PCP Family Medicine; Visit Provider Internal Medicine
DX: D59.5 Paroxysmal nocturnal hemoglobinuria [Marchiafava-Micheli] (principal); D46.Z Other myelodysplastic syndromes; Z79.899 Other long term (current) drug therapy
CPT/HCPCS: 80053; 83615; 85025; 99214

== ENCOUNTER 2023-05-20 08:49 | Oncology outpatient (recurring) (ONCR) | payer OTHER, SELFPAY ==
[2023-05-20 09:21] LABS: Basophils % 0.6 %; Eosinophils % 0.9 %; Hematocrit 32.3 % (37-53); Lymphocytes # 0.9 10^3/uL (0.8-4.8); Lymphocytes % 24.8 %; Mean Corpuscular HGB Conc 32.2 g/dL (30-55); Mean Corpuscular Hemoglobin 35.7 pg (27-33); Mean Platelet Volume 11.9 fL (7.4-10.4); Monocytes # 0.2 10^3/uL (0.2-0.9); Monocytes % 6.3 %; Neutrophils # 2.36 10^3/uL (1.8-7.7); Neutrophils % 67.1 %; Nucleated Red Blood Cells % 0 %; Platelet Count 120 10^3/cmm (157-399); Red Blood Count 2.91 10^6/uL (3.85-5.65); Red Cell Distribution Width 18.6 % (12.1-15.1); White Blood Count 3.51 10^3/uL (3.29-11.43)
[2023-05-20 09:46] LABS: Alanine Aminotransferase 19 U/L (0-41); Albumin Level 4.1 g/dL (3.5-5.2); Alkaline Phosphatase 114 U/L (40-130); Anion Gap 12.1 (5-19); Aspartate Amino Transferase 69 U/L (0-40); Blood Urea Nitrogen 19 mg/dL (8-23); Calcium 9.1 mg/dL (8.5-10.5); Carbon Dioxide 29 mmol/L (22-29); Chloride 102 mmol/L (98-107); Globulin 3.3 g/dL (1.3-4.6); Glucose 100 mg/dL (65-115); Osmolality Calculated 290 mOsm/kg (285-295); Potassium 4.1 mmol/L (3.5-5.1); Sodium 139 mmol/L (136-145); Testosterone Total 561.3 ng/dL (193-740); Total Bilirubin 2.8 mg/dL (0.15-1.2); Total Protein 7.4 g/dL (6.6-8.7)
[2023-05-20 09:54] LABS: Prostate Specific Antigen < 0.014 ng/mL (0-4)
[2023-05-20 10:01] LABS: Lactate Dehydrogenase 1022 U/L (135-225)
[2023-05-20] MEDS: sodium chloride 0.9% 250 ML 75 ML IV (12:25)
[2023-05-20 13:55] VITALS: BP 94/58; PULSE 74; RESP 16; TEMP 36.7; O2SAT 98
== END 2023-05-20 23:59 | disposition home or self-care (01) ==
PROVIDERS: Nurse Practitioner Family; PCP Family Medicine; Visit Provider Internal Medicine
DX: D59.5 Paroxysmal nocturnal hemoglobinuria [Marchiafava-Micheli] (principal); D46.Z Other myelodysplastic syndromes; Z79.899 Other long term (current) drug therapy; Z79.620 Long term (current) use of immunosuppressive biologic; R13.10 Dysphagia, unspecified; Z79.01 Long term (current) use of anticoagulants; Z79.82 Long term (current) use of aspirin
CPT/HCPCS: 80053; 83615; 84153; 84403; 85025; 96413; 99215; J1303; J7050

== ENCOUNTER 2023-06-03 07:53 | Oncology outpatient (recurring) (ONCR) | payer OTHER, SELFPAY ==
[2023-06-03 08:11] VITALS: BP 98/60; PULSE 59; RESP 18; TEMP 36.5; O2SAT 99
[2023-06-03 08:22] LABS: Basophils % 0.7 %; Eosinophils % 1.3 %; Lymphocytes # 0.9 10^3/uL (0.8-4.8); Lymphocytes % 30.3 %; Mean Corpuscular HGB Conc 33.1 g/dL (30-55); Mean Corpuscular Hemoglobin 36.9 pg (27-33); Mean Corpuscular Volume 111.5 fl (82-101); Mean Platelet Volume 11.9 fL (7.4-10.4); Monocytes # 0.2 10^3/uL (0.2-0.9); Monocytes % 5.9 %; Neutrophils # 1.89 10^3/uL (1.8-7.7); Neutrophils % 61.5 %; Nucleated Red Blood Cells % 0 %; Platelet Count 149 10^3/cmm (157-399); Red Blood Count 2.87 10^6/uL (3.85-5.65); Red Cell Distribution Width 18.1 % (12.1-15.1); White Blood Count 3.07 10^3/uL (3.29-11.43)
[2023-06-03 08:23] LABS: Reticulocyte % 3.4 % (0.5-2.0)
[2023-06-03 08:44] LABS: Alanine Aminotransferase 19 U/L (0-41); Albumin Level 4.3 g/dL (3.5-5.2); Alkaline Phosphatase 103 U/L (40-130); Anion Gap 12.7 (5-19); Aspartate Amino Transferase 27 U/L (0-40); Blood Urea Nitrogen 18 mg/dL (8-23); Calcium 9.4 mg/dL (8.5-10.5); Carbon Dioxide 29 mmol/L (22-29); Chloride 103 mmol/L (98-107); Creatinine Clr Calc Pharmacy 65.4541; Globulin 3.3 g/dL (1.3-4.6); Glucose 86 mg/dL (65-115); Lactate Dehydrogenase 256 U/L (135-225); Osmolality Calculated 293 mOsm/kg (285-295); Potassium 3.7 mmol/L (3.5-5.1); Sodium 141 mmol/L (136-145); Total Bilirubin 3.5 mg/dL (0.15-1.2); Total Protein 7.6 g/dL (6.6-8.7)
[2023-06-03] MEDS: [UNRECOGNIZED DRUG - OTHER] IV (09:29)
[2023-06-03] MEDS: SODIUM CHLORIDE 0.9% IV (09:29)
[2023-06-03 10:15] VITALS: BP 101/66; PULSE 62; RESP 18; TEMP 36.4; O2SAT 96
== END 2023-06-03 23:59 | disposition home or self-care (01) ==
PROVIDERS: Nurse Practitioner Family; PCP Family Medicine; Visit Provider Internal Medicine
DX: D59.5 Paroxysmal nocturnal hemoglobinuria [Marchiafava-Micheli] (principal); Z79.899 Other long term (current) drug therapy; Z79.620 Long term (current) use of immunosuppressive biologic; Z79.01 Long term (current) use of anticoagulants; Z79.82 Long term (current) use of aspirin; Z79.52 Long term (current) use of systemic steroids
CPT/HCPCS: 36415; 80053; 83615; 85025; 85045; 96413; 99214; J1303

== ENCOUNTER → 2023-06-15 12:43 | Outpatient (BNVA) | payer OTHER, SELFPAY | PROVIDERS: PCP Family Medicine; Visit Provider Psychiatry & Neurology Neurology | DX: Z86.73 Personal history of transient ischemic attack (TIA), and cerebral infarction without residual deficits (principal); D46.Z Other myelodysplastic syndromes | CPT/HCPCS: 99212 ==

== ENCOUNTER 2023-07-29 10:49 | Oncology outpatient (recurring) (ONCR) | payer OTHER, SELFPAY ==
[2023-07-29 11:30] LABS: Basophils % 0.4 %; Eosinophils % 1.4 %; Hematocrit 27.8 % (37-53); Lymphocytes # 0.8 10^3/uL (0.8-4.8); Lymphocytes % 28.3 %; Mean Corpuscular HGB Conc 33.5 g/dL (30-55); Mean Corpuscular Hemoglobin 39.2 pg (27-33); Mean Corpuscular Volume 117.3 fl (82-101); Mean Platelet Volume 11.9 fL (7.4-10.4); Monocytes # 0.2 10^3/uL (0.2-0.9); Monocytes % 6.5 %; Neutrophils # 1.74 10^3/uL (1.8-7.7); Nucleated Red Blood Cells % 0 %; Platelet Count 149 10^3/cmm (157-399); Red Blood Count 2.37 10^6/uL (3.85-5.65); Red Cell Distribution Width 19.4 % (12.1-15.1); Reticulocyte % 5.9 % (0.5-2.0); White Blood Count 2.76 10^3/uL (3.29-11.43)
[2023-07-29 11:46] LABS: Alanine Aminotransferase 18 U/L (0-41); Alkaline Phosphatase 95 U/L (40-130); Blood Urea Nitrogen 16 mg/dL (8-23); Carbon Dioxide 30 mmol/L (22-29); Chloride 103 mmol/L (98-107); Glucose 102 mg/dL (65-115); Osmolality Calculated 291 mOsm/kg (285-295); Sodium 140 mmol/L (136-145); Total Bilirubin 3.3 mg/dL (0.15-1.2)
[2023-07-29 11:59] LABS: Anion Gap 11.1 (5-19); Aspartate Amino Transferase 29 U/L (0-40); Lactate Dehydrogenase 298 U/L (135-225); Potassium 4.1 mmol/L (3.5-5.1)
[2023-07-29] MEDS: [UNRECOGNIZED DRUG - OTHER] IV (13:36)
[2023-07-29] MEDS: SODIUM CHLORIDE 0.9% IV (13:36)
== END 2023-07-29 23:59 | disposition home or self-care (01) ==
PROVIDERS: Nurse Practitioner Family; PCP Family Medicine; Visit Provider Internal Medicine
DX: D59.5 Paroxysmal nocturnal hemoglobinuria [Marchiafava-Micheli] (principal); D46.Z Other myelodysplastic syndromes; Z79.899 Other long term (current) drug therapy; Z79.620 Long term (current) use of immunosuppressive biologic
CPT/HCPCS: 80053; 83615; 85025; 85045; 96413; 99213; A4222; J1303

== ENCOUNTER 2023-09-23 11:12 | Oncology outpatient (recurring) (ONCR) | payer OTHER, SELFPAY ==
[2023-09-23 11:54] LABS: Basophils % 0.7 %; Eosinophils % 1.1 %; Hematocrit 24.5 % (37-53); Lymphocytes # 0.7 10^3/uL (0.8-4.8); Lymphocytes % 26.3 %; Mean Corpuscular HGB Conc 33.9 g/dL (30-55); Mean Corpuscular Hemoglobin 40.9 pg (27-33); Mean Corpuscular Volume 120.7 fl (82-101); Mean Platelet Volume 11.8 fL (7.4-10.4); Monocytes # 0.2 10^3/uL (0.2-0.9); Monocytes % 8.3 %; Neutrophils # 1.76 10^3/uL (1.8-7.7); Neutrophils % 63.2 %; Nucleated Red Blood Cells % 0 %; Platelet Count 143 10^3/cmm (157-399); Red Blood Count 2.03 10^6/uL (3.85-5.65); Red Cell Distribution Width 18.3 % (12.1-15.1); White Blood Count 2.78 10^3/uL (3.29-11.43)
[2023-09-23 12:13] LABS: Alanine Aminotransferase 14 U/L (0-41); Alkaline Phosphatase 91 U/L (40-130); Aspartate Amino Transferase 22 U/L (0-40); Blood Urea Nitrogen 15 mg/dL (8-23); Calcium 8.8 mg/dL (8.5-10.5); Carbon Dioxide 29 mmol/L (22-29); Chloride 100 mmol/L (98-107); Globulin 2.7 g/dL (1.3-4.6); Glucose 99 mg/dL (65-115); Osmolality Calculated 289 mOsm/kg (285-295); Sodium 139 mmol/L (136-145); Total Bilirubin 3.3 mg/dL (0.15-1.2); Total Protein 6.7 g/dL (6.6-8.7)
[2023-09-23 12:16] LABS: Anion Gap 14.1 (5-19); Potassium 4.1 mmol/L (3.5-5.1)
[2023-09-23 14:31] LABS: Lactate Dehydrogenase 221 U/L (135-225)
[2023-09-23 14:50] LABS: Reticulocyte % 7.3 % (0.5-2.0)
[2023-09-23] MEDS: SODIUM CHLORIDE 0.9% IV (15:27)
[2023-09-23] MEDS: [UNRECOGNIZED DRUG - OTHER] IV (15:27)
[2023-09-23 16:01] VITALS: BP 113/65; PULSE 66; O2SAT 99
== END 2023-09-23 23:59 | disposition home or self-care (01) ==
LOC: ONCMED 11:13
PROVIDERS: Nurse Practitioner Family; PCP Family Medicine; Visit Provider Internal Medicine
DX: D59.5 Paroxysmal nocturnal hemoglobinuria [Marchiafava-Micheli] (principal); D46.Z Other myelodysplastic syndromes; Z79.899 Other long term (current) drug therapy; Z79.2 Long term (current) use of antibiotics; Z79.620 Long term (current) use of immunosuppressive biologic; C61 Malignant neoplasm of prostate; D69.6 Thrombocytopenia, unspecified
CPT/HCPCS: 80053; 83010; 83615; 85025; 85045; 86880; 96413; 99214; J1303

== ENCOUNTER 2023-11-18 10:50 | Oncology outpatient (recurring) (ONCR) | payer OTHER, SELFPAY ==
[2023-11-18 11:35] LABS: Basophils % 0.3 %; Hematocrit 25.2 % (37-53); Lymphocytes # 0.7 10^3/uL (0.8-4.8); Lymphocytes % 23.7 %; Mean Corpuscular HGB Conc 33.3 g/dL (30-55); Mean Corpuscular Volume 122.9 fl (82-101); Mean Platelet Volume 12.1 fL (7.4-10.4); Monocytes # 0.2 10^3/uL (0.2-0.9); Neutrophils # 2.03 10^3/uL (1.8-7.7); Neutrophils % 67.7 %; Nucleated Red Blood Cells % 0 %; Platelet Count 132 10^3/cmm (157-399); Red Blood Count 2.05 10^6/uL (3.85-5.65); Red Cell Distribution Width 17.7 % (12.1-15.1)
[2023-11-18 11:54] LABS: Alanine Aminotransferase 19 U/L (0-41); Albumin Level 4.1 g/dL (3.5-5.2); Alkaline Phosphatase 91 U/L (40-130); Aspartate Amino Transferase 27 U/L (0-40); Blood Urea Nitrogen 21 mg/dL (8-23); Calcium 8.9 mg/dL (8.5-10.5); Carbon Dioxide 29 mmol/L (22-29); Chloride 102 mmol/L (98-107); Globulin 2.4 g/dL (1.3-4.6); Glucose 105 mg/dL (65-115); Osmolality Calculated 293 mOsm/kg (285-295); Sodium 140 mmol/L (136-145); Total Bilirubin 2.9 mg/dL (0.15-1.2); Total Protein 6.5 g/dL (6.6-8.7)
[2023-11-18 11:56] LABS: Anion Gap 13.1 (5-19); Potassium 4.1 mmol/L (3.5-5.1)
[2023-11-18 11:58] LABS: Lactate Dehydrogenase 229 U/L (135-225)
[2023-11-18 12:21] VITALS: BP 96/59; PULSE 60; RESP 16; TEMP 36.7; O2SAT 99
[2023-11-18] MEDS: SODIUM CHLORIDE 0.9% IV (13:08)
[2023-11-18] MEDS: [UNRECOGNIZED DRUG - OTHER] IV (13:08)
[2023-11-18 13:40] VITALS: BP 93/55; PULSE 58; RESP 16; TEMP 36.4; O2SAT 98
== END 2023-11-18 23:59 | disposition home or self-care (01) ==
PROVIDERS: PCP Family Medicine; Visit Provider Internal Medicine Medical Oncology
DX: Z79.899 Other long term (current) drug therapy; D59.5 Paroxysmal nocturnal hemoglobinuria [Marchiafava-Micheli]
CPT/HCPCS: 80053; 83010; 83615; 85025; 85045; 96413; J1303

== ENCOUNTER 2023-12-16 09:47 | Oncology outpatient (recurring) (ONCR) | payer OTHER, SELFPAY ==
[2023-12-16 10:50] LABS: Reticulocyte % 7.9 % (0.5-2.0)
[2023-12-16 10:51] LABS: Basophils % 0.7 %; Eosinophils % 1.1 %; Hematocrit 24.6 % (37-53); Lymphocytes # 0.7 10^3/uL (0.8-4.8); Lymphocytes % 26.1 %; Mean Corpuscular HGB Conc 33.3 g/dL (30-55); Mean Corpuscular Hemoglobin 41.6 pg (27-33); Mean Corpuscular Volume 124.9 fl (82-101); Mean Platelet Volume 11.4 fL (7.4-10.4); Monocytes # 0.2 10^3/uL (0.2-0.9); Monocytes % 6.7 %; Neutrophils # 1.73 10^3/uL (1.8-7.7); Neutrophils % 64.7 %; Nucleated Red Blood Cells % 0.7 %; Platelet Count 139 10^3/cmm (157-399); Red Blood Count 1.97 10^6/uL (3.85-5.65); White Blood Count 2.68 10^3/uL (3.29-11.43)
[2023-12-16 11:13] LABS: Alanine Aminotransferase 17 U/L (0-41); Albumin Level 4.1 g/dL (3.5-5.2); Alkaline Phosphatase 108 U/L (40-130); Anion Gap 10.3 (5-19); Aspartate Amino Transferase 22 U/L (0-40); Blood Urea Nitrogen 13 mg/dL (8-23); Calcium 8.8 mg/dL (8.5-10.5); Carbon Dioxide 32 mmol/L (22-29); Chloride 102 mmol/L (98-107); Creatinine Clr Calc Pharmacy 63.9832; Globulin 2.6 g/dL (1.3-4.6); Glucose 90 mg/dL (65-115); Lactate Dehydrogenase 207 U/L (135-225); Osmolality Calculated 290 mOsm/kg (285-295); Potassium 4.3 mmol/L (3.5-5.1); Sodium 140 mmol/L (136-145); Total Bilirubin 3.5 mg/dL (0.15-1.2); Total Protein 6.7 g/dL (6.6-8.7)
[2023-12-16 11:29] LABS: Slide Review Slide Review Perform
[2023-12-16 11:30] LABS: Iron 105 ug/dL (59-158); Percent Saturation 52.5 % (20-50); Total Iron Binding Capacity 200 mcg/dl; Unsaturated Iron Binding 95 ug/dL (112-347)
== END 2024-01-04 23:59 | disposition home or self-care (01) ==
PROVIDERS: PCP Family Medicine; Visit Provider Internal Medicine Medical Oncology
DX: D59.5 Paroxysmal nocturnal hemoglobinuria [Marchiafava-Micheli] (principal); D46.Z Other myelodysplastic syndromes; Z79.82 Long term (current) use of aspirin; Z79.01 Long term (current) use of anticoagulants; Z86.73 Personal history of transient ischemic attack (TIA), and cerebral infarction without residual deficits
CPT/HCPCS: 36415; 80053; 83010; 83540; 83550; 83615; 85025; 85045; 86880; 99214

== ENCOUNTER 2024-01-13 11:46 | Oncology outpatient (recurring) (ONCR) | payer OTHER, SELFPAY ==
[2024-01-13 12:56] LABS: Basophils % 0.8 %; Eosinophils % 0.4 %; Hematocrit 24.5 % (37-53); Lymphocytes # 0.6 10^3/uL (0.8-4.8); Lymphocytes % 23.9 %; Mean Corpuscular HGB Conc 33.9 g/dL (30-55); Mean Corpuscular Hemoglobin 42.3 pg (27-33); Monocytes # 0.2 10^3/uL (0.2-0.9); Monocytes % 7.7 %; Neutrophils # 1.65 10^3/uL (1.8-7.7); Neutrophils % 66.8 %; Nucleated Red Blood Cells % 0 %; Platelet Count 150 10^3/cmm (157-399); Red Blood Count 1.96 10^6/uL (3.85-5.65); Red Cell Distribution Width 18.6 % (12.1-15.1); White Blood Count 2.47 10^3/uL (3.29-11.43)
[2024-01-13 12:57] LABS: Reticulocyte % 8.8 % (0.5-2.0)
[2024-01-13 12:59] LABS: Alanine Aminotransferase 23 U/L (0-41); Albumin Level 4.3 g/dL (3.5-5.2); Alkaline Phosphatase 115 U/L (40-130); Anion Gap 11.2 (5-19); Aspartate Amino Transferase 25 U/L (0-40); Blood Urea Nitrogen 16 mg/dL (8-23); Calcium 8.9 mg/dL (8.5-10.5); Carbon Dioxide 29 mmol/L (22-29); Chloride 100 mmol/L (98-107); Globulin 2.9 g/dL (1.3-4.6); Glucose 115 mg/dL (65-115); Iron 82 ug/dL (59-158); Lactate Dehydrogenase 219 U/L (135-225); Osmolality Calculated 284 mOsm/kg (285-295); Percent Saturation 34.8 % (20-50); Potassium 4.2 mmol/L (3.5-5.1); Sodium 136 mmol/L (136-145); Total Bilirubin 3.2 mg/dL (0.15-1.2); Total Iron Binding Capacity 235 mcg/dl; Total Protein 7.2 g/dL (6.6-8.7); Unsaturated Iron Binding 153 ug/dL (112-347)
[2024-01-13] MEDS: SODIUM CHLORIDE 0.9% IV (14:25)
[2024-01-13] MEDS: [UNRECOGNIZED DRUG - OTHER] IV (14:25)
[2024-01-13 14:59] VITALS: BP 144/66; PULSE 66; RESP 16; TEMP 36.6; O2SAT 99
== END 2024-01-13 23:59 | disposition home or self-care (01) ==
PROVIDERS: PCP Family Medicine; Visit Provider Internal Medicine Medical Oncology
DX: D59.5 Paroxysmal nocturnal hemoglobinuria [Marchiafava-Micheli] (principal); D46.Z Other myelodysplastic syndromes; Z79.82 Long term (current) use of aspirin; Z79.01 Long term (current) use of anticoagulants; Z86.73 Personal history of transient ischemic attack (TIA), and cerebral infarction without residual deficits; Z79.899 Other long term (current) drug therapy
CPT/HCPCS: 80053; 83010; 83540; 83550; 83615; 85025; 85045; 86880; 96413; 99214; A4222; J1303

== ENCOUNTER 2024-03-09 12:25 | Oncology outpatient (recurring) (ONCR) | payer OTHER, SELFPAY ==
[2024-03-09 12:55] LABS: Basophils % 0.5 %; Eosinophils % 0.9 %; Hematocrit 27.7 % (37-53); Lymphocytes # 0.5 10^3/uL (0.8-4.8); Mean Corpuscular HGB Conc 32.1 g/dL (30-55); Mean Corpuscular Hemoglobin 38.5 pg (27-33); Mean Corpuscular Volume 119.9 fl (82-101); Mean Platelet Volume 12.3 fL (7.4-10.4); Monocytes # 0.2 10^3/uL (0.2-0.9); Monocytes % 7.8 %; Neutrophils # 1.43 10^3/uL (1.8-7.7); Neutrophils % 65.9 %; Nucleated Red Blood Cells % 0 %; Platelet Count 116 10^3/cmm (157-399); Red Blood Count 2.31 10^6/uL (3.85-5.65); Red Cell Distribution Width 17.5 % (12.1-15.1); White Blood Count 2.17 10^3/uL (3.29-11.43)
[2024-03-09 12:58] LABS: Reticulocyte % 4.6 % (0.5-2.0)
[2024-03-09 13:10] LABS: Alanine Aminotransferase 21 U/L (0-41); Albumin Level 4.1 g/dL (3.5-5.2); Alkaline Phosphatase 114 U/L (40-130); Anion Gap 12.8 (5-19); Aspartate Amino Transferase 24 U/L (0-40); Blood Urea Nitrogen 18 mg/dL (8-23); Calcium 9.2 mg/dL (8.5-10.5); Carbon Dioxide 28 mmol/L (22-29); Chloride 102 mmol/L (98-107); Creatinine Clr Calc Pharmacy 63.9832; Ferritin 161 ng/mL (30-400); Glucose 114 mg/dL (65-115); Iron 74 ug/dL (59-158); Lactate Dehydrogenase 212 U/L (135-225); Osmolality Calculated 291 mOsm/kg (285-295); Percent Saturation 30.8 % (20-50); Potassium 3.8 mmol/L (3.5-5.1); Sodium 139 mmol/L (136-145); Total Bilirubin 2.4 mg/dL (0.15-1.2); Total Iron Binding Capacity 240 mcg/dl; Total Protein 7.1 g/dL (6.6-8.7); Unsaturated Iron Binding 166 ug/dL (112-347)
[2024-03-09] MEDS: [UNRECOGNIZED DRUG - OTHER] IV (15:01)
[2024-03-09] MEDS: SODIUM CHLORIDE 0.9% IV (15:01)
== END 2024-03-09 23:59 | disposition home or self-care (01) ==
PROVIDERS: Internal Medicine Medical Oncology; PCP Family Medicine; Visit Provider Internal Medicine Medical Oncology
DX: D59.5 Paroxysmal nocturnal hemoglobinuria [Marchiafava-Micheli] (principal); D46.Z Other myelodysplastic syndromes; Z79.82 Long term (current) use of aspirin; Z79.01 Long term (current) use of anticoagulants; Z86.73 Personal history of transient ischemic attack (TIA), and cerebral infarction without residual deficits; Z79.899 Other long term (current) drug therapy; Z79.620 Long term (current) use of immunosuppressive biologic
CPT/HCPCS: 80053; 82728; 83540; 83550; 83615; 85025; 85045; 96413; 99214; J1303

== ENCOUNTER 2024-05-04 11:59 | Oncology outpatient (recurring) (ONCR) | payer OTHER, SELFPAY ==
[2024-05-04 12:27] LABS: Basophils % 0.5 %; Eosinophils % 0.9 %; Hematocrit 31.8 % (37-53); Lymphocytes # 0.7 10^3/uL (0.8-4.8); Lymphocytes % 29.9 %; Mean Corpuscular HGB Conc 31.8 g/dL (30-55); Mean Corpuscular Hemoglobin 35.9 pg (27-33); Mean Corpuscular Volume 113.2 fl (82-101); Mean Platelet Volume 12.5 fL (7.4-10.4); Monocytes # 0.2 10^3/uL (0.2-0.9); Monocytes % 6.8 %; Neutrophils # 1.36 10^3/uL (1.8-7.7); Neutrophils % 61.4 %; Nucleated Red Blood Cells % 0 %; Platelet Count 99 10^3/cmm (157-399); Red Blood Count 2.81 10^6/uL (3.85-5.65); Red Cell Distribution Width 17.5 % (12.1-15.1); White Blood Count 2.21 10^3/uL (3.29-11.43)
[2024-05-04 13:15] LABS: Alanine Aminotransferase 16 U/L (0-41); Albumin Level 4.1 g/dL (3.5-5.2); Alkaline Phosphatase 102 U/L (40-130); Aspartate Amino Transferase 21 U/L (0-40); Blood Urea Nitrogen 15 mg/dL (8-23); Calcium 9.3 mg/dL (8.5-10.5); Carbon Dioxide 28 mmol/L (22-29); Chloride 102 mmol/L (98-107); Ferritin 96 ng/mL (30-400); Globulin 3.3 g/dL (1.3-4.6); Glucose 97 mg/dL (65-115); Iron 74 ug/dL (59-158); Osmolality Calculated 291 mOsm/kg (285-295); Percent Saturation 27.6 % (20-50); Sodium 140 mmol/L (136-145); Total Bilirubin 1.9 mg/dL (0.15-1.2); Total Iron Binding Capacity 268 mcg/dl; Total Protein 7.4 g/dL (6.6-8.7); Unsaturated Iron Binding 194 ug/dL (112-347)
[2024-05-04 13:17] LABS: Anion Gap 13.8 (5-19); Potassium 3.8 mmol/L (3.5-5.1)
[2024-05-04 13:18] LABS: Lactate Dehydrogenase 207 U/L (135-225)
[2024-05-04] MEDS: [UNRECOGNIZED DRUG - OTHER] IV (16:21)
[2024-05-04] MEDS: SODIUM CHLORIDE 0.9% IV (16:21)
[2024-05-04 17:06] VITALS: BP 105/66; PULSE 62; RESP 17; TEMP 36.5; O2SAT 99
== END 2024-05-04 23:59 | disposition home or self-care (01) ==
PROVIDERS: Internal Medicine Medical Oncology; PCP Family Medicine; Visit Provider Internal Medicine
DX: D59.5 Paroxysmal nocturnal hemoglobinuria [Marchiafava-Micheli]; D46.Z Other myelodysplastic syndromes; Z79.899 Other long term (current) drug therapy
CPT/HCPCS: 80053; 82728; 83540; 83550; 83615; 85025; 96413; 99213; J1303

== ENCOUNTER 2024-06-29 10:18 | Oncology outpatient (recurring) (ONCR) | payer OTHER, SELFPAY ==
--- NOTE | 2024-05-05 16:01 | PC.PHAR ---
Meningococcal conjugate quad given 04/29/23: per Lucero Mccray. Verification per [facility] and patient [facility] on immunizations.
[2024-06-29 10:46] LABS: Hematocrit 29.6 % (37-53); Lymphocytes # 0.7 10^3/uL (0.8-4.8); Lymphocytes % 34.4 %; Mean Corpuscular HGB Conc 33.4 g/dL (30-55); Mean Corpuscular Hemoglobin 36.8 pg (27-33); Mean Platelet Volume 13.9 fL (7.4-10.4); Monocytes # 0.1 10^3/uL (0.2-0.9); Monocytes % 6.2 %; Neutrophils # 1.19 10^3/uL (1.8-7.7); Neutrophils % 56.9 %; Nucleated Red Blood Cells % 0 %; Platelet Count 84 10^3/cmm (157-399); Red Blood Count 2.69 10^6/uL (3.85-5.65); Red Cell Distribution Width 18.5 % (12.1-15.1); White Blood Count 2.09 10^3/uL (3.29-11.43)
[2024-06-29 10:50] LABS: Reticulocyte % 2.7 % (0.5-2.0)
[2024-06-29 10:54] LABS: Slide Review Slide Review Perform
[2024-06-29 10:59] LABS: Erythrocyte Sedimentation Rate 13 mm/hr (0-10)
[2024-06-29 11:06] LABS: Alanine Aminotransferase 18 U/L (0-41); Albumin Level 4.1 g/dL (3.5-5.2); Alkaline Phosphatase 105 U/L (40-130); Anion Gap 13.1 (5-19); Aspartate Amino Transferase 20 U/L (0-40); Blood Urea Nitrogen 16 mg/dL (8-23); Carbon Dioxide 28 mmol/L (22-29); Chloride 102 mmol/L (98-107); Ferritin 88 ng/mL (30-400); Globulin 2.8 g/dL (1.3-4.6); Glucose 95 mg/dL (65-115); Iron 123 ug/dL (59-158); Lactate Dehydrogenase 188 U/L (135-225); Osmolality Calculated 289 mOsm/kg (285-295); Percent Saturation 49.2 % (20-50); Potassium 4.1 mmol/L (3.5-5.1); Sodium 139 mmol/L (136-145); Total Iron Binding Capacity 250 mcg/dl; Total Protein 6.9 g/dL (6.6-8.7); Unsaturated Iron Binding 127 ug/dL (112-347)
[2024-06-29 11:21] LABS: Vitamin B12 380 pg/mL (232-1245)
[2024-06-29 12:24] LABS: Folate Level > 20.0 ng/mL (4.5-32.2)
[2024-06-29] MEDS: SODIUM CHLORIDE 0.9% IV (12:59)
[2024-06-29] MEDS: [UNRECOGNIZED DRUG - OTHER] IV (12:59)
[2024-06-29 13:54] VITALS: BP 99/61; PULSE 70; RESP 16; TEMP 36.4; O2SAT 99
== END 2024-06-29 23:59 | disposition home or self-care (01) ==
PROVIDERS: PCP Family Medicine; Visit Provider Internal Medicine
DX: D59.5 Paroxysmal nocturnal hemoglobinuria [Marchiafava-Micheli] (principal); D46.Z Other myelodysplastic syndromes; Z79.899 Other long term (current) drug therapy; D61.818 Other pancytopenia
CPT/HCPCS: 80053; 82607; 82728; 82746; 83010; 83540; 83550; 83615; 85025; 85045; 85651; 86140; 96413; 99213; A4222; J1303

== ENCOUNTER 2024-08-30 09:16 | Oncology outpatient (recurring) (ONCR) | payer OTHER, SELFPAY ==
[2024-08-30 10:03] LABS: Reticulocyte % 2.9 % (0.5-2.0)
[2024-08-30 10:04] LABS: Basophils % 0.5 %; Eosinophils % 0.9 %; Hematocrit 34.5 % (37-53); Lymphocytes # 0.7 10^3/uL (0.8-4.8); Lymphocytes % 31.2 %; Mean Corpuscular HGB Conc 32.2 g/dL (30-55); Mean Corpuscular Hemoglobin 36.5 pg (27-33); Mean Corpuscular Volume 113.5 fl (82-101); Mean Platelet Volume 13.5 fL (7.4-10.4); Monocytes # 0.1 10^3/uL (0.2-0.9); Neutrophils % 60.5 %; Nucleated Red Blood Cells % 0 %; Platelet Count 62 10^3/cmm (157-399); Red Blood Count 3.04 10^6/uL (3.85-5.65); Red Cell Distribution Width 18.2 % (12.1-15.1); White Blood Count 2.15 10^3/uL (3.29-11.43)
[2024-08-30 10:08] LABS: Erythrocyte Sedimentation Rate 15 mm/hr (0-10)
[2024-08-30 10:37] LABS: Alanine Aminotransferase 19 U/L (0-41); Albumin Level 4.4 g/dL (3.5-5.2); Alkaline Phosphatase 122 U/L (40-130); Aspartate Amino Transferase 25 U/L (0-40); Blood Urea Nitrogen 17 mg/dL (8-23); Calcium 9.1 mg/dL (8.5-10.5); Carbon Dioxide 24 mmol/L (22-29); Chloride 102 mmol/L (98-107); Creatinine Clr Calc Pharmacy 61.9911; Ferritin 96 ng/mL (30-400); Globulin 2.9 g/dL (1.3-4.6); Glucose 93 mg/dL (65-115); Iron 120 ug/dL (59-158); Osmolality Calculated 291 mOsm/kg (285-295); Sodium 140 mmol/L (136-145); Total Iron Binding Capacity 279 mcg/dl; Total Protein 7.3 g/dL (6.6-8.7); Unsaturated Iron Binding 159 ug/dL (112-347)
[2024-08-30 10:38] LABS: Slide Review Slide Review Perform
[2024-08-30 10:40] LABS: Anion Gap 18.5 (5-19); Potassium 4.5 mmol/L (3.5-5.1)
[2024-08-30 10:41] LABS: Lactate Dehydrogenase 240 U/L (135-225)
[2024-08-30 10:57] LABS: Folate Level > 20.0 ng/mL (4.5-32.2)
[2024-08-30] MEDS: [UNRECOGNIZED DRUG - OTHER] IV (12:24)
[2024-08-30] MEDS: SODIUM CHLORIDE 0.9% IV (12:24)
[2024-08-30 13:05] VITALS: BP 89/58; PULSE 76; O2SAT 98
== END 2024-08-30 23:59 | disposition home or self-care (01) ==
PROVIDERS: PCP Family Medicine; Visit Provider Internal Medicine
DX: D59.5 Paroxysmal nocturnal hemoglobinuria [Marchiafava-Micheli] (principal); D46.Z Other myelodysplastic syndromes; Z79.899 Other long term (current) drug therapy
CPT/HCPCS: 80053; 82248; 82728; 82746; 83010; 83540; 83550; 83615; 85025; 85045; 85651; 86140; 96413; 99214; J1303

== ENCOUNTER 2024-09-12 09:51 | Outpatient (CLI) | payer OTHER, SELFPAY ==
--- NOTE | 2024-09-12 10:00 | US_ITS ---
WS: [id number] RIGHT UPPER QUADRANT ULTRASOUND HISTORY: elevated total bilirubin with normal [place]'s COMPARISON: 08/23/2020 Liver: 11.3 cm in length. Normal size liver and echogenicity. No bile duct dilatation or mass. Portal Vein: Normal hepatopetal flow with monophasic waveform. Gallbladder: Normally distended gallbladder with no stones or wall thickening. CBD: 0.2 cm Pancreas: Normal size and echogenicity. Right kidney: 8.5 cm in length. Normal size and echogenicity. No hydronephrosis or mass. Aorta and IVC: Unremarkable abdominal aorta and IVC. No ascites. US/US abdomen limited 70125 IMPRESSION: Normal right upper quadrant ultrasound.
== END 2024-09-12 09:52 | disposition home or self-care (01) ==
LOC: RAD 09:52
PROVIDERS: PCP Family Medicine; Visit Provider Nurse Practitioner Family
DX: D59.5 Paroxysmal nocturnal hemoglobinuria [Marchiafava-Micheli] (principal); R17 Unspecified jaundice
CPT/HCPCS: 76705

== ENCOUNTER 2024-10-31 09:43 | Oncology outpatient (recurring) (ONCR) | payer OTHER, SELFPAY ==
[2024-10-31 10:21] LABS: Hematocrit 30.2 % (37-53); Hemoglobin 10.00 g/dL (11.27-16.99); Mean Corpuscular HGB Conc 33.1 g/dL (30-55); Mean Corpuscular Hemoglobin 35.8 pg (27-33); Mean Corpuscular Volume 108.2 fl (82-101); Nucleated Red Blood Cells % 0 %; Platelet Count 66 10^3/cmm (157-399); Red Blood Count 2.79 10^6/uL (3.85-5.65); White Blood Count 2.50 10^3/uL (3.29-11.43)
[2024-10-31 10:35] LABS: Alanine Aminotransferase 21 U/L (0-41); Albumin Level 4.1 g/dL (3.5-5.2); Alkaline Phosphatase 119 U/L (40-130); Anion Gap 14.1 (5-19); Aspartate Amino Transferase 23 U/L (0-40); Blood Urea Nitrogen 14 mg/dL (8-23); Calcium 9.0 mg/dL (8.5-10.5); Carbon Dioxide 28 mmol/L (22-29); Chloride 97 mmol/L (98-107); Creatinine Clr Calc Pharmacy 61.9911; Ferritin 108 ng/mL (30-400); Globulin 3.0 g/dL (1.3-4.6); Glucose 103 mg/dL (65-115); Iron 119 ug/dL (59-158); Osmolality Calculated 281 mOsm/kg (285-295); Potassium 4.1 mmol/L (3.5-5.1); Sodium 135 mmol/L (136-145); Total Iron Binding Capacity 230 mcg/dl; Total Protein 7.1 g/dL (6.6-8.7); Unsaturated Iron Binding 111 ug/dL (112-347)
[2024-10-31 11:09] LABS: Slide Review Slide Review Perform
[2024-10-31] MEDS: SODIUM CHLORIDE 0.9% IV (12:55)
[2024-10-31] MEDS: [UNRECOGNIZED DRUG - OTHER] IV (12:55)
[2024-10-31 14:02] VITALS: BP 98/61; PULSE 70; RESP 17; TEMP 36.8; O2SAT 99
== END 2024-10-31 23:59 | disposition home or self-care (01) ==
PROVIDERS: Nurse Practitioner Family; PCP Family Medicine; Visit Provider Internal Medicine
DX: D59.5 Paroxysmal nocturnal hemoglobinuria [Marchiafava-Micheli] (principal); D46.Z Other myelodysplastic syndromes; Z79.899 Other long term (current) drug therapy
CPT/HCPCS: 80053; 82248; 82728; 83010; 83540; 83550; 83615; 85025; 85651; 86140; 96413; 99214; J1303

== ENCOUNTER 2024-11-28 21:38 | Emergency (ER) | payer OTHER, MEDICARE, SELFPAY ==
--- OUTSIDE RECORDS SUMMARY | 2023-12-30 06:03 | XMS_ITS | Encounter Summary ---
Author Name [facility] [place] Organization [facility] [place] Address [address] [place] [address] Care Team Providers Care Pin Chaser Name Role Phone SHANTELLE PORTER Primary Care Provider Unavailabl e Insurance Providers: All historical and current Section Date Range: From patient's date of to the date document was created. This section includes the names of all active insurance providers for the patient. Insurance Provider Type of Coverage Plan Name Start of Policy Coverage End of Policy Coverage Group Number Member ID Insurance Provider's Telephone Number Policy Mckeon's Name Patient's Relationship to Policy Mckeon MEDICARE (WNR) MEDICARE (M) PART A Jul 05, 2013 PART A [id number] APARNA ALEMAN PATIENT MEDICARE (WNR) MEDICARE (M) PART A Jul 05, 2013 PART A [id number] APARNA ALEMAN PATIENT MEDICARE (WNR) MEDICARE (M) PART A Jul 05, 2013 PART A [phone] APARNA ALEMAN PATIENT MEDICARE (WNR) MEDICARE (M) PART A Jul 05, 2013 PART A [id number] [phone] APARNA ALEMAN PATIENT Selected Encounter This section includes the information on record at [place] for the Encounter. Date/Time Encounter Type Encounter Description Reason Pro vider Source Dec 30, 2023 11:03 AM Outpatient Encounter ADMIN PAT ACTIVTIES (MASNONCT) IHE Encounter Template Text not used by [place] Plan of Treatment: Future Appointments (+ 6 months) and Future Tests (+/- 45 days) The Plan of Treatment section includes future care activities for the patient from all [place] treatmentfacritical access hospitalities. This section includes future appointments and future orders which are active, pending or scheduled. Future Appointments This section includes appointments that were scheduled to occur 6 months from the date of the Encounter, up to a maximum of 20 appointments. The data comes from all [place] treatment facilities. Appointment Date/Time Appointment Type Appointme nt Facility Name Jan 04, 2024 08:40 AM AM[facility]ULATORY - MEDICINE [facility] Jan 05, 2024 10:20 AM AMBULATORY - MEDICINE [facility] Jan 05, 2024 03:00 PM [facility]IC[place] [facility] Feb 09, 2024 09:40 AM AMBULATORY - MEDICINE [facility] Feb 09, 2024 01:45 PM [facility] [place] [facility] Feb 16, 2024 09:20 AM AMBULATORY - MEDICINE [facility] Feb 16, 2024 01:30 PM [facility] [place] [facility] Feb 23, 2024 08:40 AM AMBULATORY - MEDICINE [facility] Feb 23, 2024 03:00 PM [facility] [place] [facility] Mar 10, 2024 08:45 AM [facility] - [facility] [place] [facility] May 04, 2024 10:00 AM [facility]ULATORY - MEDIC[place] [facility] Lab Results: +/- 30 days of the encounter This section includes the Chemistry and Hematology Lab Results on record with [place] for the patient. Radiology Reports and Pathology Reports are provided separately, in subsequent sections. Lab Results This section contains the Chemistry/Hematology Results that were resulted 30 days before or 30 daysafter the date of the Encounter. Date/Time Source Result Type Result - Unit Interpretation Reference Range Specimen Type Comment Jan 05, 2024 09:39 AM [place] [facility] HGB,HCT,PLT BLOOD Specimen Type: BLOOD No comment entered. Ordering Provider: ELISE ROSS Report Released Date/Time: Dec 09, 2023 12:05 PM Reporting Lab: [place] [facility] [address] [place] [address] Performing Lab: [place] [facility] [address] [place] [address] HGB 8.4 g/dL L 13.1-16.8 HCT 24.2 L 38.2-48.4 PLT 143 10*3/uL L 150-400 Jan 05, 2024 09:39 AM [place] [facility] CREATININE(EGFR) PLASMA Specimen Type: PLASM A No comment entered. Ordering Provider: ELISE ROSS Report Released Date/Time: Dec 09, 2023 12:05 PM Reporting Lab: [place] [facility] [address] [place] [address] Performing Lab: [place] [facility] [address] [place] [address] CREATININE 0.96 mg/dL 0.7-1.3 EGFR (CKD-EPI 2020) 82 Dec 08, 2023 10:31 AM [place] [facility] HGB,HCT,PLT BLOOD Specimen Ty pe: BLOOD No comment entered. Ordering Provider: ELISE ROSS Report Released Date/Time: Nov 05, 2023 10:58 AM Reporting Lab: [place] [facility] [address] [place] [address] Performing Lab: [place] [facility] [address] [place] [address] HGB 8.2 g/dL L 13.1-16.8 HCT 24.2 L 38.2-48.4 PLT 141 10*3/uL L 150-400 Dec 08, 2023 10:31 AM [place] [facility] CREATININE(EGFR) PLASMA Specimen Type: PLASM A No comment entered. Ordering Provider: ELISE ROSS Report Released Date/Time: Nov 05, 2023 10:58 AM Reporting Lab: [place] [facility] [address] [place] [address] Performing Lab: [place] [facility] [address] [place] [address] CREATININE 1.00 mg/dL 0.7-1.3 EGFR (CKD-EPI 2020) 78 Social History: Smoking Status (Most current) and Tobacco Use (All prior to encounter date) This section includes the most current, and the historical, smoking and tobacco- related health factors from the [place] facility where the Encounter took place. Current Smoking Status This section includes the most current smoking, or tobacco-related health factor, from the [place] facility where the Encounter took place. Date/Time Current Smoking Status Comment Laurent youngy Jul 16, 2023 11:00 AM VA-TOBACCO NEVER USED [facility] Tobacco Use History This section includes a history of the smoking, or tobacco-related health factors, that were collected on or before the date of the Encounter. The data comes from the [place] facility where the Encounter took place. Date/Time Smoking Status/Tobacco Use Comment F acility Jul 17, 2022 01:00 PM FORMER SMOKER - <1 00 LIFETIME CIGARETTES [facility] [place] [facility] Jul 17, 2022 01:00 PM VA-TOBACCO FORMER USER [facility] Jul 17, 2022 01:00 PM VA-TOBACCO QUIT 15 YRS OR MORE [facility] Jul 23, 2021 11:00 AM VA-TOBACCO NEVER USED [facility] May 19, 2019 09:52 AM VA-TOBACCO FORMER USER [facility] May 19, 2019 09:52 AM VA-TOBACCO QUIT 15 YRS OR MORE [facility] Nov 02, 2018 11:33 AM VA-TOBACCO NEVER USED [facility] Feb 19, 2010 01:12 PM LIFETIME NON-USER OF TOBACCO [facility] Advance Directives: All historical and current Section Date Range: From patient's date of to the date document was created. This section includes ALL of a patient's completed or amended [place] Advance and Rescinded Directives. The entries below indicate that a directive exists for the patient, but an actual copy is not included with this document. The data comes from all [place] facilities. Date Advance Directives Provider Source August 31, 2018 ADVANCE DIRECTIVE DISCUSSION GOSIA YANG [facility] August 13, 2010 ADVANCE DIRECTIVE DISCUSSION ELSA MILLS [facility] Encounter Notes: All associated encounter notes This section contains the clinical notes associated to the Encounter. Date/Time Encounter Note(s) Provider Source Dec 30, 2023 11:03 AM GENERAL MEDICINE N OTE: LOCAL TITLE: General Note PB STANDARD TITLE: GENERAL MEDICINE NOTE DATE OF NOTE: DEC 30, 2023@11:03 ENTRY DATE: DEC 30, 2023@11:03:18 AUTHOR: DWIGHT COOK EXP COSIGNER: URGENCY: STATUS: COMPLETED Eye Care At-Risk Screen : Patient identified to be at risk for the following eye condition(s): MACULAR DEGENERATION: Macular Degeneration Risk Factors Information: Reminder Term: VA-AMD RISK FACTORS Hospitalization Diagnosis 06/25/2021@12:45:39 I25.10 (ICD-10-CM) Atherosclerotic Heart Disease of [place] Coronary Artery without Angina Pectoris; data node: M ICD7 Action: No Referral Ordered: Eye exam completed elsewhere by an Tread Cutter or Photo Technician Exam Information: Date: September 30, 2023 Findings/Comment Normal Location: [facility]es/ [facility] Signed: 12/30/2023 11:04 DWIGHT COOK [facility]
--- OUTSIDE RECORDS SUMMARY | 2024-11-28 16:50 | XMS_ITS | Continuity of Care Document ---
Author Name [facility] Organization [facility] Care Team Providers Care Laser Operator Name Role Phone [facility] Unavailable Unavailable Problems Combined list of problems from Department of Defense and Veterans Affairs facilities. It does not include entries that were removed or entered in error. Problem Status Onset Date Problem Type Date of Resolution Comments Source Alcoholic fatty liver Active Condition [place] [facility] Alcoholism Active Condition [place] [facility] Cerebral infarction Active Condition Mar 03, 2023 Entered By: SHANTELLE PORTER Comment: 12/09/22 TIA right facial weakness; CT old left frontal lobe infarction and right frontal lobe infacrtion [place] [facility] Cobalamin deficiency Active Condition [facility] Exposure to potentially hazardous substance Active Condition [facility] HLD - Hyperlipidemia (SNOMED CT 25880465) Active Condition [facility] HTN - Hypertension (SNOMED CT 45422618) Active Condition [place] [facility] Marijuana user Active Condition [place] [facility] Multiple nodules of lung Active Condition [place] [facility] Myelodysplastic syndrome Active Condition Jan 29, 2023 Entered By: SHANTELLE PORTER Comment: with PHN clone; and associated pancytopenia [place] [facility] Osteoarthrosis involving the spine (ICD-9-CM 715.98) Active Condition Apr 16, 2023 Entered By: SHANTELLE PORTER Comment: MRI 03/17/2023 showed multiple infarcts multiple distributions with encephalomalacia and volume loss [place] [facility] Paroxysmal nocturnal hemoglobinuria Active Condition [place] [facility] Prostate carcinoma (SNOMED CT 425793012) Active Condition [facility] Stroke Active Condition [facility] Thrombocytopenia (SNOMED CT 044419539) Active Condition [facility] Vitamin D Deficiency (SCT 1198795) Active Condition [place] [facility] Cellulitis and abscess of other specified sites (ICD-9-CM 682.8) Inactive Condition 06/16/2016 [place] [facility] Constipation Inactive Condition 06/16/2016 ERON ALARCON [facility] Laboratory Examination Ordered as part of a Routine General Medical Examination Inactive Condition 06/16/2016 CRUZ ALAR[facility] Routine General Medical Examination at a Health Care Facility * (ICD-9-CM V70.0) Inactive Condition 06/16/2016 CRU[facility] AL[facility] Diagnosis: ICD-10-CM I10 Essential (primary) hypertension Active Diagnosis [facility] Diagnosis: ICD-10-CM Z51.81 Encounter for therapeutic drug level monitoring Active Diagnosis [facility] Diagnosis: ICD-10-CM Z71.89 Other specified counseling Active Diagnosis LIONEL SAND FORKAna Maria MD [facility] Diagnosis: ICD-10-CM Z23 Encounter for immunization Active Diagnosis [facility] Medications Combined list of outpatient medications from Department of Defense and Veterans Affairs facilities.Medications provided include 1) outpatient medications from the last 15 months, and 2) patient-reported medications. Medication Details Route Status Patient Instructions Prescription Expires Prescription Number Last Dispense Date Ordering Provider Order Date Order Qty Source APIXABAN 5MG TAB TAKE ONE TABLET BY MOUTH TWICE A DAY FOR ANTICOAG ULATION ORAL DISCONT INUED 04/15/2024 [id number] ELISE ROSS 2023 180 [facility] ASPIRIN 81MG TAB,EC TAKE ONE TABLET BY MOUTH ONCE A DAY FOR CARDIOVA SCULAR DISEASE ORAL SUSPEND ED 05/25/2025 [id number] SHANTELLE PORTER 2024 120 [facility] ASPIRIN 81MG TAB,EC TAKE ONE TABLET BY MOUTH ONCE A DAY FOR CARDIOVA SCULAR DISEASE ORAL DISCONT INUED 04/13/2024 [id number] SHANTELLE PORTER 2023 120 [facility] ATORVASTATI N CA 80MG TAB TAKE ONE-HALF TABLET BY MOUTH EVERY EVENING FOR HIGH CHOLESTE ROL ORAL SUSPEND ED 05/25/2025 [id number] 5 SHANTELLE PORTER 2024 45 [facility] ATORVASTATI N CA 80MG TAB TAKE ONE-HALF TABLET BY MOUTH EVERY EVENING FOR HIGH CHOLESTE ROL ORAL DISCONT INUED 04/08/2024 [id number] [place], SHANTELLE 2023 45 [facility] CHOLECALCIF MIKE 10MCG (400UNIT) TAB TAKE TWO TABLETS BY MOUTH ONCE A DAY FOR VITAMIN D DEFICIEN CY. ORAL SUSPEND ED 08/20/2025 [id number] 5 [place], SHANTELLE 2024 200 [facility] CHOLECALCIF MIKE 10MCG (400UNIT) TAB TAKE TWO TABLETS BY MOUTH ONCE A DAY FOR VITAMIN D DEFICIEN CY. ORAL DISCONT INUED 11/26/2024 [id number] 5 [place], SHANTELLE 2023 200 [place] [facility] FOLIC ACID 1MG TAB TAKE ONE TABLET BY MOUTH ONCE A DAY FOR FOLIC ACID SUPPLEME NTATION ORAL SUSPEND ED 08/20/2025 [id number] [place], SHANTELLE 2024 100 [place] [facility] OXYBUTYNIN CL 10MG TAB,SA TAKE ONE TABLET BY MOUTH ONCE A DAY ORAL ACTIVE JEAN JEERZ 2018 [facility] TAMSULOSIN HCL 0.4MG CAP TAKE TWO CAPSULES BY MOUTH EVERY EVENING APPROXIM ATELY 30 MINUTES AFTER THE SAME MEAL EACH DAY (FOR PROSTATE ) ORAL SUSPEND ED 05/25/2025 [id number] 5 [place], SHANTELLE 2024 180 [facility] TAMSULOSIN HCL 0.4MG CAP TAKE TWO CAPSULES BY MOUTH EVERY EVENING APPROXIM ATELY 30 MINUTES AFTER THE SAME MEAL EACH DAY (FOR PROSTATE ) ORAL DISCONT INUED 04/13/2024 [id number] [place], SHANTELLE 2023 180 [facility] TAMSULOSIN HCL 0.4MG CAP TAKE 2 CAPSULES BY MOUTH ONCE A DAY ORAL ACTIVE JEAN JEREZ 2018 [facility] TICAGRELOR 90MG TAB TAKE ONE TABLET BY MOUTH TWICE A DAY FOR STROKE PREVENTI ON ORAL SUSPEND ED 09/06/2025 [id number] CHARLOTTESHANTELLE 2024 120 [facility] TICAGRELOR 90MG TAB TAKE ONE TABLET BY MOUTH TWICE A DAY FOR STROKE PREVENTI ON ORAL DISCONT INUED 02/24/2025 [id number] SHANTELLE PORTER 2023 120 [facility] Immunizations Combined list of available immunizations from the Department of Defense and Veterans Affairs facilities. Immunization Series Date Given Administered By Site Reaction Lot Number CVX Code Drug Vp Purchasing Status Comments Source INFLUENZA, SPLIT VIRUS, TRIVALENT, PF 2023 NALLELY GRIFFIN R RIGHT DELTO ID [id number] 140 complet ed [facility] MENINGOCOCCAL CONJUGATE QUADRIVALENT, MENACWY-TT (MCV4) 2023 203 complet ed HISTORICA L INFORMATI ON - FROM OTHER REGISTRY, [facility] COVID-19 (MODERNA), MRNA, LNP-S, PF, 50 MCG/0.5 ML (AGES 12+ YEARS) 1 2022 FLAVIA HURLEY R RIGHT DELTO ID [id number] 312 complet ed [facility] INFLUENZA, HIGH-DOSE, QUADRIVALENT 2022 FLAVIA HURLEY R LEFT DELTO ID [id number] 197 complet ed [facility] COVID-19 (MODERNA), MRNA, LNP-S, BIVALENT BOOSTER, PF, 50 MCG/0.5 ML OR 25MCG/0.25 ML DOSE 1 2021 229 complet ed MOD; [id number]; 3 [facility] INFLUENZA, INJECTABLE, QUADRIVALENT, PRESERVATIVE FREE 2021 150 complet ed [facility] TDAP 2021 115 complet ed [facility] COVID-19 (MODERNA), MRNA, LNP-S, PF, 100 MCG/0.5ML DOSE OR 50 MCG/0.25ML DOSE 4 2021 207 complet ed HISTORICA L INFORMATI ON - FROM OTHER [facility], [facility] COVID-19 (MODERNA), MRNA, LNP-S, PF, 100 MCG OR 50 MCG DOSE 2020 207 complet ed HISTORICA L INFORMATI ON - FROM OTHER PROVIDER, Partner:Joan GARY.Admin istered by:[employer].([id number]). NDC:[id number].Ad dress[id number] Dosage: ML 0.25 [facility] INFLUENZA, HIGH-DOSE, QUADRIVALENT 2020 197 complet ed HISTORICA L INFORMATI ON - FROM OTHER PROVIDER, Partner:Joan GARY.Admin istered by:[employer].([id number]). NDC:[id number].Ad dress:[address] SPG.AR.[id number] Dosage: ML 0.7 [facility] COVID-19 (MODERNA), MRNA, LNP-S, PF, 100 MCG/0.5 ML DOSE 2 2020 207 complet ed [facility] COVID-19 (MODERNA), MRNA, LNP-S, PF, 100 MCG/0.5 ML DOSE 1 2020 207 complet ed [facility] PNEUMOCOCCAL POLYSACCHARID E PPV23 2019 33 complet [facility] ZOSTER RECOMBINANT 2 2019 187 complet [facility] INFLUENZA, INJECTABLE, QUADRIVALENT, PRESERVATIVE FREE 2018 150 complet [facility] ZOSTER RECOMBINANT 1 2018 187 complet [facility] INFLUENZA, UNSPECIFIED FORMULATION 2016 88 complet ed [facility] INFLUENZA, INJECTABLE, QUADRIVALENT, PRESERVATIVE FREE 2016 150 complet ed [facility] INFLUENZA, SEASONAL, INJECTABLE, PRESERVATIVE FREE 2015 140 complet [facility] INFLUENZA, SEASONAL, INJECTABLE, PRESERVATIVE FREE 2014 140 complet [facility] PNEUMOCOCCAL CONJUGATE PCV 13 2014 133 complet [facility] INFLUENZA, UNSPECIFIED FORMULATION 2012 88 complet ed [place] [facility] INFLUENZA, UNSPECIFIED FORMULATION 2011 88 complet ed [facility] INFLUENZA, UNSPECIFIED FORMULATION 2009 88 complet ed [facility] TD(ADULT) UNSPECIFIED FORMULATION 2001 139 complet ed [facility] Results Combined list of recent chemistry, hematology and other laboratory results from Department of Defense and Veterans Affairs, ranging from 15 months to all on record, depending upon the facility. Order Name Results Value Reference Range Date Interpretation Specimen Comments Source TSH (MA-PB) THYROTROPIN [UNITS/VOLU ME] IN SERUM OR PLASMA 3.200 u[IU]/mL 0.47 - 5 07/06 Specimen Type: SERUM No comment entered. Ordering Provider: MARY ANNE PORTER Report Released Date/Time: Dec 25, 2023 01:22 PM Reporting Lab: [place] [facility] [address] [place] [place] [address] Performing Lab: [place] [facility] [address] [place] [facility] [facility] HGA1C HEMOGLOBIN A1C/HEMOGLO BIN.TOTAL IN BLOOD 4.6 4.0 - 6.0 07/06 Specimen Type: BLOOD No comment entered. Ordering Provider: MARY ANNE PORTER Report Released Date/Time: Dec 25, 2023 01:22 PM Reporting Lab: [place] [facility] [address] [place] [address] Performing Lab: [place] [facility] [address] [place] [address] [facility] VITAMIN D, 25-HYDROX Y 25-HYDROXYV ITAMIN D3 [MASS/VOLUM E] IN SERUM OR PLASMA 34.3 ng/mL 30 - 96 07/06 Specimen Type: SERUM No comment entered. Ordering Provider: MARY ANNE PORTER Report Released Date/Time: Dec 25, 2023 01:22 PM Reporting Lab: [place] [facility] [address] [place] [address] Performing Lab: [place] [facility] [address] [place] [address] [facility] CHOLESTER OL PANEL (PB) CHOLESTEROL [MASS/VOLUM E] IN SERUM OR PLASMA 131 mg/dL 0 - 200 07/06 Specimen Type: PLASMA No comment entered. Ordering Provider: MARY ANNE PORTER Report Released Date/Time: Dec 25, 2023 01:22 PM Reporting Lab: [place] [facility] [address] [place] [address] Performing Lab: [place] [facility] [address] [place] [address] [facility] CHOLESTER OL PANEL (PB) TRIGLYCERID E [MASS/VOLUM E] IN SERUM OR PLASMA 68 mg/dL 0 - 150 07/06 Specimen Type: PLASMA No comment entered. Ordering Provider: MARY ANNE PORTER Report Released Date/Time: Dec 25, 2023 01:22 PM Reporting Lab: [place] [facility] [address] [place] [address] Performing Lab: [place] [facility] [address] [place] [address] [facility] CHOLESTER OL PANEL (PB) CHOLESTEROL IN LDL [MASS/VOLUM E] IN SERUM OR PLASMA BY CALCULATION 61.4 mg/dL 07/06 Specimen Type: PLASMA No comment entered. Ordering Provider: MARY ANNE PORTER Report Released Date/Time: Dec 25, 2023 01:22 PM Reporting Lab: [place] [facility] [address] [place] [address] Performing Lab: [place] [facility] [address] [place] [address] [facility] CHOLESTER OL PANEL (PB) CHOLESTEROL IN HDL [MASS/VOLUM E] IN SERUM OR PLASMA 56.0 mg/dL 40 07/06 H Specimen Type: PLASMA No comment entered. Ordering Provider: MARY ANNE PORTER Report Released Date/Time: Dec 25, 2023 01:22 PM Reporting Lab: [place] [facility] [address] [place] [address] Performing Lab: [place] [facility] [address] [place] [address] [place] [facility] CHOLESTER OL PANEL (PB) CHOLESTEROL IN HDL/CHOLEST MIKE.TOTAL [MASS RATIO] IN SERUM OR PLASMA 42.7 25 07/06 Specimen Type: PLASMA No comment entered. Ordering Provider: MARY ANNE PORTER MMY Report Released Date/Time: Dec 25, 2023 01:22 PM Reporting Lab: [place] [facility] [address] [place] [address] Performing Lab: [place] [facility] [address] [place] [address] [facility] COMPREHEN SIVE METABOLIC PANEL CREATININE [MASS/VOLUM E] IN SERUM OR PLASMA 0.77 mg/dL 0.7 - 1.3 07/06 Specimen Type: PLASMA No comment entered. Ordering Provider: MARY ANNE PORTER MMY Report Released Date/Time: Dec 25, 2023 01:22 PM Reporting Lab: [place] [facility] [address] [place] [address] Performing Lab: [place] [facility] [address] [place] [address] [facility] COMPREHEN SIVE METABOLIC PANEL UREA NITROGEN [MASS/VOLUM E] IN SERUM OR PLASMA 17 mg/dL 9 - 25 07/06 Specimen Type: PLASMA No comment entered. Ordering Provider: MARY ANNE PORTER MMY Report Released Date/Time: Dec 25, 2023 01:22 PM Reporting Lab: [place] [facility] [address] [place] [address] Performing Lab: [place] [facility] [address] [place] [address] [facility] COMPREHEN SIVE METABOLIC PANEL GLUCOSE [MASS/VOLUM E] IN SERUM OR PLASMA 97 mg/dL 72 - 99 07/06 Specimen Type: PLASMA No comment entered. Ordering Provider: MARY ANNE PORTER MMY Report Released Date/Time: Dec 25, 2023 01:22 PM Reporting Lab: [place] [facility] [address] [place] [address] Performing Lab: [place] [facility] [address] [place] [address] [facility] COMPREHEN SIVE METABOLIC PANEL SODIUM [MOLES/VOLU ME] IN SERUM OR PLASMA 138 meq/L 136 - 145 07/06 Specimen Type: PLASMA No comment entered. Ordering Provider: MARY ANNE PORTER Report Released Date/Time: Dec 25, 2023 01:22 PM Reporting Lab: [place] [facility] [address] [place] [address] Performing Lab: [place] [facility] [address] [place] [address] [facility] COMPREHEN SIVE METABOLIC PANEL POTASSIUM [MOLES/VOLU ME] IN SERUM OR PLASMA 3.9 meq/L 3.5 - 5 07/06 Specimen Type: PLASMA No comment entered. Ordering Provider: MARY ANNE PORTER MMChar[employer] Report Released Date/Time: Dec 25, 2023 01:22 PM Reporting Lab: [place] [facility] [address] [place] [address] Performing Lab: [place] [facility] [address] [place] [address] [facility] COMPREHEN SIVE METABOLIC PANEL CHLORIDE [MOLES/VOLU ME] IN SERUM OR PLASMA 106 meq/L 98 - 107 07/06 Specimen Type: PLASMA No comment entered. Ordering Provider: MARY ANNE PORTER Report Released Date/Time: Dec 25, 2023 01:22 PM Reporting Lab: [place] [facility] [address] [place] [address] Performing Lab: [place] [facility] [address] [place] [address] [facility] COMPREHEN SIVE METABOLIC PANEL CARBON DIOXIDE, TOTAL [MOLES/VOLU ME] IN SERUM OR PLASMA 24 meq/L 22 - 31 07/06 Specimen Type: PLASMA No comment entered. Ordering Provider: MARY ANNE PORTER Report Released Date/Time: Dec 25, 2023 01:22 PM Reporting Lab: [place] [facility] [address] [place] [address] Performing Lab: [place] [facility] [address] [place] [address] [facility] COMPREHEN SIVE METABOLIC PANEL CALCIUM [MASS/VOLUM E] IN SERUM OR PLASMA 8.5 mg/dL 8.4 - 10.4 07/06 Specimen Type: PLASMA No comment entered. Ordering Provider: MARY ANNE PORTER Report Released Date/Time: Dec 25, 2023 01:22 PM Reporting Lab: [place] [facility] [address] [place] [address] Performing Lab: [place] [facility] [address] [place] [address] [facility] COMPREHEN SIVE METABOLIC PANEL PROTEIN [MASS/VOLUM E] IN SERUM OR PLASMA 7.0 g/dL 6 - 8.6 07/06 Specimen Type: PLASMA No comment entered. Ordering Provider: MARY ANNE PORTER Report Released Date/Time: Dec 25, 2023 01:22 PM Reporting Lab: [place] [facility] [address] [place] [address] Performing Lab: [place] [facility] [address] [place] [address] [facility] COMPREHEN SIVE METABOLIC PANEL ALBUMIN [MASS/VOLUM E] IN SERUM OR PLASMA 3.9 g/dL 3.4 - 5 07/06 Specimen Type: PLASMA No comment entered. Ordering Provider: MARY ANNE PORTER Report Released Date/Time: Dec 25, 2023 01:22 PM Reporting Lab: [place] [facility] [address] [place] [address] Performing Lab: [place] [facility] [address] [place] [address] [facility] COMPREHEN SIVE METABOLIC PANEL BILIRUBIN.T OTAL [MASS/VOLUM E] IN SERUM OR PLASMA 2.8 mg/dL 0.2 - 1.2 07/06 H Specimen Type: PLASMA No comment entered. Ordering Provider: MARY ANNE PORTER Report Released Date/Time: Dec 25, 2023 01:22 PM Reporting Lab: [place] [facility] [address] [place] [address] Performing Lab: [place] [facility] [address] [place] [address] [facility] COMPREHEN SIVE METABOLIC PANEL ALKALINE PHOSPHATASE [ENZYMATIC ACTIVITY/VO LUME] IN SERUM OR PLASMA 120 U/L 40 - 150 07/06 Specimen Type: PLASMA No comment entered. Ordering Provider: MARY ANNE PORTER MMY Report Released Date/Time: Dec 25, 2023 01:22 PM Reporting Lab: [place] [facility] [address] [place] [address] Performing Lab: [place] [facility] [address] [place] [address] [facility] COMPREHEN SIVE METABOLIC PANEL ASPARTATE AMINOTRANSF ERASE [ENZYMATIC ACTIVITY/VO LUME] IN SERUM OR PLASMA 20 U/L 5 - 34 07/06 Specimen Type: PLASMA No comment entered. Ordering Provider: MARY ANNE PORTER MMY Report Released Date/Time: Dec 25, 2023 01:22 PM Reporting Lab: [place] [facility] [address] [place] [address] Performing Lab: [place] [facility] [address] [place] [address] [facility] COMPREHEN SIVE METABOLIC PANEL ALANINE AMINOTRANSF ERASE [ENZYMATIC ACTIVITY/VO LUME] IN SERUM OR PLASMA 15 U/L 8 - 40 07/06 Specimen Type: PLASMA No comment entered. Ordering Provider: MARY ANNE PORTER MMY Report Released Date/Time: Dec 25, 2023 01:22 PM Reporting Lab: [place] [facility] [address] [place] [address] Performing Lab: [place] [facility] [address] [place] [address] [facility] COMPREHEN SIVE METABOLIC PANEL GLOMERULAR FILTRATION RATE/1.73 SQ M.PREDICTED [VOLUME RATE/AREA] IN SERUM, PLASMA OR BLOOD BY CREATININE- BASED FORMULA (CKD-EPI 2020) 93 07/06 Specimen Type: PLASMA No comment entered. Ordering Provider: MARY ANNE PORTER MMY Report Released Date/Time: Dec 25, 2023 01:22 PM Reporting Lab: [place] [facility] [address] [place] [address] Performing Lab: [place] [facility] [address] [place] [facility] [facility] CBC LEUKOCYTES [#/VOLUME] IN BLOOD BY AUTOMATED COUNT 2.1 10*3/uL 3.6 - 11.2 07/06 L Specimen Type: BLOOD Comment: SCAN OF SLIDE AGREES WITH AUTOMATED DIFF Unable to report MPV due to abnormal distributio n of platelets Ordering Provider: MARY ANNE PORTER MMY Report Released Date/Time: Dec 25, 2023 01:22 PM Reporting Lab: [place] [facility] [address] [place] [address] Performing Lab: [place] [facility] [address] [place] [address] [facility] CBC ERYTHROCYTE S [#/VOLUME] IN BLOOD BY AUTOMATED COUNT 2.75 10*6/uL 4.10 - 5.70 07/06 L Specimen Type: BLOOD Comment: SCAN OF SLIDE AGREES WITH AUTOMATED DIFF Unable to report MPV due to abnormal distributio n of platelets Ordering Provider: MARY ANNE PORTER [employer] Report Released Date/Time: Dec 25, 2023 01:22 PM Reporting Lab: [place] [facility] [address] [place] [address] Performing Lab: [place] [facility] [address] [place] [facility] [facility] CBC HEMOGLOBIN [MASS/VOLUM E] IN BLOOD 9.9 g/dL 13.1 - 16.8 07/06 L Specimen Type: BLOOD Comment: SCAN OF SLIDE AGREES WITH AUTOMATED DIFF Unable to report MPV due to abnormal distributio n of platelets Ordering Provider: MARY ANNE PORTER MM[employer] Report Released Date/Time: Dec 25, 2023 01:22 PM Reporting Lab: [place] [facility] [address] [place] [facility] Performing Lab: [place] [facility] [address] [place] [facility] [facility] CBC HEMATOCRIT [VOLUME FRACTION] OF BLOOD 30.4 38.2 - 48.4 07/06 L Specimen Type: BLOOD Comment: SCAN OF SLIDE AGREES WITH AUTOMATED DIFF Unable to report MPV due to abnormal distributio n of platelets Ordering Provider: MARY ANNE PORTER MMY Report Released Date/Time: Dec 25, 2023 01:22 PM Reporting Lab: [place] [facility] [address] [place] [address] Performing Lab: [place] [facility] [facility] [address] [place] [address] [facility] CBC MCV [ENTITIC VOLUME] BY AUTOMATED COUNT 110.5 fL 80.0 - 100.0 07/06 H Specimen Type: BLOOD Comment: SCAN OF SLIDE AGREES WITH AUTOMATED DIFF Unable to report MPV due to abnormal distributio n of platelets Ordering Provider: AMRY ANNE PORTER MMY Report Released Date/Time: Dec 25, 2023 01:22 PM Reporting Lab: [place] [facility] [address] [place] [address] Performing Lab: [place] [facility] [address] [place] [address] [facility] CBC MCH [ENTITIC MASS] BY AUTOMATED COUNT 36.0 pg 27.0 - 34.0 07/06 H Specimen Type: BLOOD Comment: SCAN OF SLIDE AGREES WITH AUTOMATED DIFF Unable to report MPV due to abnormal distributio n of platelets Ordering Provider: MARY ANNE PORTER Report Released Date/Time: Dec 25, 2023 01:22 PM Reporting Lab: [place] [facility] [address] [place] [address] Performing Lab: [place] [facility] [address] [place] [address] [facility] CBC MCHC [MASS/VOLUM E] BY AUTOMATED COUNT 32.6 g/dL 33.0 - 36.0 07/06 L Specimen Type: BLOOD Comment: SCAN OF SLIDE AGREES WITH AUTOMATED DIFF Unable to report MPV due to abnormal distributio n of platelets Ordering Provider: MARY ANNE PORTER Report Released Date/Time: Dec 25, 2023 01:22 PM Reporting Lab: [place] [facility] [address] [place] [address] Performing Lab: [place] [facility] [address] [place] [address] [facility] CBC PLATELETS [#/VOLUME] IN BLOOD BY AUTOMATED COUNT 59 10*3/uL 150 - 400 07/06 L Specimen Type: BLOOD Comment: SCAN OF SLIDE AGREES WITH AUTOMATED DIFF Unable to report MPV due to abnormal distributio n of platelets Ordering Provider: MARY ANNE PORTER Report Released Date/Time: Dec 25, 2023 01:22 PM Reporting Lab: [place] [facility] [address] [place] [address] Performing Lab: [place] [facility] [address] [place] [address] [facility] CBC PLATELET MEAN VOLUME [ENTITIC VOLUME] IN BLOOD BY AUTOMATED COUNT commentf L 7.5 - 11.2 07/06 Specimen Type: BLOOD Comment: SCAN OF SLIDE AGREES WITH AUTOMATED DIFF Unable to report MPV due to abnormal distributio n of platelets Ordering Provider: MARY ANNE PORTER Report Released Date/Time: Dec 25, 2023 01:22 PM Reporting Lab: [place] [facility] [address] [place] [address] Performing Lab: [place] [facility] [address] [place] [address] [facility] CBC PLATELET ADEQUACY [PRESENCE] IN BLOOD BY LIGHT MICROSCOPY DECREASE D 07/06 Specimen Type: BLOOD Comment: SCAN OF SLIDE AGREES WITH AUTOMATED DIFF Unable to report MPV due to abnormal distributio n of platelets Ordering Provider: MARY ANNE PORTER Report Released Date/Time: Dec 25, 2023 01:22 PM Reporting Lab: [place] [facility] [address] [place] [address] Performing Lab: [place] [facility] [address] [place] [address] [facility] CBC ANISOCYTOSI S [PRESENCE] IN BLOOD BY LIGHT MICROSCOPY 1+ 07/06 Specimen Type: BLOOD Comment: SCAN OF SLIDE AGREES WITH AUTOMATED DIFF Unable to report MPV due to abnormal distributio n of platelets Ordering Provider: MARY ANNE PORTER Report Released Date/Time: Dec 25, 2023 01:22 PM Reporting Lab: [place] [facility] [address] [place] [address] Performing Lab: [place] [facility] [address] [place] [address] [facility] CBC MACROCYTES [PRESENCE] IN BLOOD BY LIGHT MICROSCOPY 1+ 07/06 Specimen Type: BLOOD Comment: SCAN OF SLIDE AGREES WITH AUTOMATED DIFF Unable to report MPV due to abnormal distributio n of platelets Ordering Provider: MARY ANNE PORTER Report Released Date/Time: Dec 25, 2023 01:22 PM Reporting Lab: [place] [facility] [address] [place] [address] Performing Lab: [place] [facility] [address] [place] [address] [facility] CBC ERYTHROCYTE DISTRIBUTIO N WIDTH [RATIO] BY AUTOMATED COUNT 18.1 11.8 - 15.1 07/06 H Specimen Type: BLOOD Comment: SCAN OF SLIDE AGREES WITH AUTOMATED DIFF Unable to report MPV due to abnormal distributio n of platelets Ordering Provider: MARY ANNE PORTER Report Released Date/Time: Dec 25, 2023 01:22 PM Reporting Lab: [place] [facility] [address] [place] [address] Performing Lab: [place] [facility] [address] [place] [address] [facility] CBC LYMPHOCYTES /100 LEUKOCYTES IN BLOOD BY AUTOMATED COUNT 31.1 07/06 Specimen Type: BLOOD Comment: SCAN OF SLIDE AGREES WITH AUTOMATED DIFF Unable to report MPV due to abnormal distributio n of platelets Ordering Provider: MARY ANNE PORTER Report Released Date/Time: Dec 25, 2023 01:22 PM Reporting Lab: [place] [facility] [address] [place] [address] Performing Lab: [place] [facility] [address] [place] [address] [facility] CBC MONOCYTES/1 00 LEUKOCYTES IN BLOOD BY AUTOMATED COUNT 7.5 07/06 Specimen Type: BLOOD Comment: SCAN OF SLIDE AGREES WITH AUTOMATED DIFF Unable to report MPV due to abnormal distributio n of platelets Ordering Provider: [place],TA MMY Report Released Date/Time: Dec 25, 2023 01:22 PM Reporting Lab: [place] [facility] [address] [place] [address] Performing Lab: [place] [facility] [address] [place] [address] [facility] CBC NEUTROPHILS /100 LEUKOCYTES IN BLOOD BY AUTOMATED COUNT 59.5 07/06 Specimen Type: BLOOD Comment: SCAN OF SLIDE AGREES WITH AUTOMATED DIFF Unable to report MPV due to abnormal distributio n of platelets Ordering Provider: MARY ANNE PORTER MMY Report Released Date/Time: Dec 25, 2023 01:22 PM Reporting Lab: [place] [facility] [address] [place] [address] Performing Lab: [place] [facility] [address] [place] [address] [facility] CBC EOSINOPHILS /100 LEUKOCYTES IN BLOOD BY AUTOMATED COUNT 0.9 07/06 Specimen Type: BLOOD Comment: SCAN OF SLIDE AGREES WITH AUTOMATED DIFF Unable to report MPV due to abnormal distributio n of platelets Ordering Provider: MARY ANNE PORTER MMY Report Released Date/Time: Dec 25, 2023 01:22 PM Reporting Lab: [place] [facility] [address] [place] [address] Performing Lab: [place] [facility] [address] [place] [address] [facility] CBC BASOPHILS/1 00 LEUKOCYTES IN BLOOD BY AUTOMATED COUNT 0.5 07/06 Specimen Type: BLOOD Comment: SCAN OF SLIDE AGREES WITH AUTOMATED DIFF Unable to report MPV due to abnormal distributio n of platelets Ordering Provider: MARY ANNE PORTER MMY Report Released Date/Time: Dec 25, 2023 01:22 PM Reporting Lab: [place] [facility] [address] [place] [address] Performing Lab: [place] [facility] [address] [place] [address] [facility] CBC LYMPHOCYTES [#/VOLUME] IN BLOOD BY AUTOMATED COUNT 0.66 10*3/uL 0.77 - 4.50 07/06 L Specimen Type: BLOOD Comment: SCAN OF SLIDE AGREES WITH AUTOMATED DIFF Unable to report MPV due to abnormal distributio n of platelets Ordering Provider: MARY ANNE PORTER Report Released Date/Time: Dec 25, 2023 01:22 PM Reporting Lab: [place] [facility] [address] [place] [address] Performing Lab: [place] [facility] [address] [place] [address] [facility] CBC MONOCYTES [#/VOLUME] IN BLOOD BY AUTOMATED COUNT 0.16 10*3/uL 0.19 - 0.8 07/06 L Specimen Type: BLOOD Comment: SCAN OF SLIDE AGREES WITH AUTOMATED DIFF Unable to report MPV due to abnormal distributio n of platelets Ordering Provider: MARY ANNE PORTER Report Released Date/Time: Dec 25, 2023 01:22 PM Reporting Lab: [place] [facility] [address] [place] [address] Performing Lab: [place] [facility] [address] [place] [address] [facility] CBC NEUTROPHILS [#/VOLUME] IN BLOOD BY AUTOMATED COUNT 1.26 10*3/uL 2.10 - 8.00 07/06 L Specimen Type: BLOOD Comment: SCAN OF SLIDE AGREES WITH AUTOMATED DIFF Unable to report MPV due to abnormal distributio n of platelets Ordering Provider: MARY ANNE PORTER Report Released Date/Time: Dec 25, 2023 01:22 PM Reporting Lab: [place] [facility] [address] [place] [address] Performing Lab: [place] [facility] [address] [place] [address] [facility] CBC EOSINOPHILS [#/VOLUME] IN BLOOD BY AUTOMATED COUNT 0.02 10*3/uL 0.00 - 0.60 07/06 Specimen Type: BLOOD Comment: SCAN OF SLIDE AGREES WITH AUTOMATED DIFF Unable to report MPV due to abnormal distributio n of platelets Ordering Provider: MARY ANNE PORTER Report Released Date/Time: Dec 25, 2023 01:22 PM Reporting Lab: [place] [facility] [address] [place] [facility] Performing Lab: [place] [facility] [address] [place] [address] [facility] CBC BASOPHILS [#/VOLUME] IN BLOOD BY AUTOMATED COUNT 0.01 10*3/uL 0.00 - 0.20 07/06 Specimen Type: BLOOD Comment: SCAN OF SLIDE AGREES WITH AUTOMATED DIFF Unable to report MPV due to abnormal distributio n of platelets Ordering Provider: MARY ANNE PORTER MMY Report Released Date/Time: Dec 25, 2023 01:22 PM Reporting Lab: [place] [facility] [address] [place] [address] Performing Lab: [place] [facility] [address] [place] [address] [facility] CBC PLATELETS RETICULATED /100 PLATELETS IN BLOOD BY AUTOMATED COUNT 14.5 1.0 - 7.0 07/06 H Specimen Type: BLOOD Comment: SCAN OF SLIDE AGREES WITH AUTOMATED DIFF Unable to report MPV due to abnormal distributio n of platelets Ordering Provider: MARY ANNE PORTER Report Released Date/Time: Dec 25, 2023 01:22 PM Reporting Lab: [place] [facility] [address] [place] [address] Performing Lab: [place] [facility] [address] [place] [address] [facility] CBC IMMATURE GRANULOCYTE S/100 LEUKOCYTES IN BLOOD BY AUTOMATED COUNT 0.5 07/06 Specimen Type: BLOOD Comment: SCAN OF SLIDE AGREES WITH AUTOMATED DIFF Unable to report MPV due to abnormal distributio n of platelets Ordering Provider: MARY ANNE PORTER Report Released Date/Time: Dec 25, 2023 01:22 PM Reporting Lab: [place] [facility] [address] [place] [address] Performing Lab: [place] [facility] [address] [place] [address] [facility] CBC IMMATURE GRANULOCYTE S [#/VOLUME] IN BLOOD BY AUTOMATED COUNT 0.01 10*3/uL 0.00 - 0.05 07/06 Specimen Type: BLOOD Comment: SCAN OF SLIDE AGREES WITH AUTOMATED DIFF Unable to report MPV due to abnormal distributio n of platelets Ordering Provider: MARY ANNE PORTER MMY Report Released Date/Time: Dec 25, 2023 01:22 PM Reporting Lab: [place] [facility] [address] [place] [address] Performing Lab: [place] [facility] [address] [place] [address] [facility] CBC MANUAL DIFFERENTIA L COMMENT [INTERPRETA TION] IN BLOOD NARRATIVE NO 07/06 Specimen Type: BLOOD Comment: SCAN OF SLIDE AGREES WITH AUTOMATED DIFF Unable to report MPV due to abnormal distributio n of platelets Ordering Provider: MARY ANNE PORTER MMY Report Released Date/Time: Dec 25, 2023 01:22 PM Reporting Lab: [place] [facility] [address] [place] [address] Performing Lab: [place] [facility] [address] [place] [address] [facility] CBC MANUAL DIFFERENTIA L PERFORMED [PRESENCE] IN BLOOD YES 07/06 Specimen Type: BLOOD Comment: SCAN OF SLIDE AGREES WITH AUTOMATED DIFF Unable to report MPV due to abnormal distributio n of platelets Ordering Provider: MARY ANNE PORTER MMCharity Report Released Date/Time: Dec 25, 2023 01:22 PM Reporting Lab: [place] [facility] [address] [place] [address] Performing Lab: [place] [facility] [address] [place] [address] [facility] HGB,HCT,P LT HEMOGLOBIN [MASS/VOLUM E] IN BLOOD 8.5 g/dL 13.1 - 16.8 02/22 L Specimen Type: BLOOD No comment entered. Ordering Provider: ELISE ROSS Report Released Date/Time: Feb 16, 2024 04:07 PM Reporting Lab: [place] [facility] [address] [place] [address] Performing Lab: [place] [facility] [address] [place] [address] [place] [facility] HGB,HCT,P LT HEMATOCRIT [VOLUME FRACTION] OF BLOOD 26.3 38.2 - 48.4 02/22 L Specimen Type: BLOOD No comment entered. Ordering Provider: ELISE ROSS Report Released Date/Time: Feb 16, 2024 04:07 PM Reporting Lab: [place] [facility] [address] [place] [address] Performing Lab: [place] [facility] [address] [place] [address] [place] [facility] HGB,HCT,P LT PLATELETS [#/VOLUME] IN BLOOD BY AUTOMATED COUNT 113 10*3/uL 150 - 400 02/22 L Specimen Type: BLOOD No comment entered. Ordering Provider: ELISE ROSS Report Released Date/Time: Feb 16, 2024 04:07 PM Reporting Lab: [place] [facility] [address] [place] [address] Performing Lab: [place] [facility] [address] [place] [address] [place] [facility] HGB,HCT,P LT HEMOGLOBIN [MASS/VOLUM E] IN BLOOD 7.8 g/dL 13.1 - 16.8 02/15 L Specimen Type: BLOOD No comment entered. Ordering Provider: ELISE ROSS Report Released Date/Time: Feb 09, 2024 04:13 PM Reporting Lab: [place] [facility] [address] [place] [address] Performing Lab: [place] [facility] [address] [place] [address] [place] [facility] HGB,HCT,P LT HEMATOCRIT [VOLUME FRACTION] OF BLOOD 24.3 38.2 - 48.4 02/15 L Specimen Type: BLOOD No comment entered. Ordering Provider: ELISE ROSS Report Released Date/Time: Feb 09, 2024 04:13 PM Reporting Lab: [place] [facility] [address] [place] [address] Performing Lab: [place] [facility] [address] [place] [address] [place] [facility] HGB,HCT,P LT PLATELETS [#/VOLUME] IN BLOOD BY AUTOMATED COUNT 104 10*3/uL 150 - 400 02/15 L Specimen Type: BLOOD No comment entered. Ordering Provider: ELISE ROSS Report Released Date/Time: Feb 09, 2024 04:13 PM Reporting Lab: [place] [facility] [address] [place] [address] Performing Lab: [place] [facility] [address] [place] [address] [place] [facility] HGB,HCT,P LT HEMOGLOBIN [MASS/VOLUM E] IN BLOOD 7.3 g/dL 13.1 - 16.8 02/08 L Specimen Type: BLOOD No comment entered. Ordering Provider: ELISE ROSS Report Released Date/Time: Jan 06, 2024 08:46 AM Reporting Lab: [place] [facility] [address] [place] [address] Performing Lab: [place] [facility] [address] [place] [address] [place] [facility] HGB,HCT,P LT HEMATOCRIT [VOLUME FRACTION] OF BLOOD 21.9 38.2 - 48.4 02/08 L Specimen Type: BLOOD No comment entered. Ordering Provider: ELISE ROSS Report Released Date/Time: Jan 06, 2024 08:46 AM Reporting Lab: [place] [facility] [address] [place] [address] Performing Lab: [place] [facility] [address] [place] [address] [place] [facility] HGB,HCT,P LT PLATELETS [#/VOLUME] IN BLOOD BY AUTOMATED COUNT 129 10*3/uL 150 - 400 02/08 L Specimen Type: BLOOD No comment entered. Ordering Provider: ELISE ROSS Report Released Date/Time: Jan 06, 2024 08:46 AM Reporting Lab: [place] [facility] [address] [place] [address] Performing Lab: [place] [facility] [address] [place] [address] [place] [facility] HGB,HCT,P LT HEMOGLOBIN [MASS/VOLUM E] IN BLOOD 8.4 g/dL 13.1 - 16.8 01/04 L Specimen Type: BLOOD No comment entered. Ordering Provider: ELISE ROSS Report Released Date/Time: Dec 09, 2023 12:05 PM Reporting Lab: [place] [facility] [address] [place] [address] Performing Lab: [place] [facility] [address] [place] [address] [place] [facility] HGB,HCT,P LT HEMATOCRIT [VOLUME FRACTION] OF BLOOD 24.2 38.2 - 48.4 01/04 L Specimen Type: BLOOD No comment entered. Ordering Provider: ELISE ROSS Report Released Date/Time: Dec 09, 2023 12:05 PM Reporting Lab: [place] [facility] [address] [place] [address] Performing Lab: [place] [facility] [address] [place] [address] [place] [facility] HGB,HCT,P LT PLATELETS [#/VOLUME] IN BLOOD BY AUTOMATED COUNT 143 10*3/uL 150 - 400 01/04 L Specimen Type: BLOOD No comment entered. Ordering Provider: ELISE ROSS Report Released Date/Time: Dec 09, 2023 12:05 PM Reporting Lab: [place] [facility] [address] [place] [address] Performing Lab: [place] [facility] [address] [place] [address] [place] [facility] Vital Signs Combined list of inpatient and outpatient Vital Signs from Department of Defense and Veterans Affairs, ranging from 12 months to all on record, depending upon the facility. Vital Sign Value Date Comments Source SYSTOLIC BLOOD PRESSURE 86 08/19/2024 10:29:00 [facility] DIASTOLIC BLOOD PRESSURE 54 08/19/2024 10:29:00 [facility] PULSE OXIMETRY 98 08/19/2024 10:29:00 [facility] WEIGHT 122.5 08/19/2024 10:29:00 [facility] BMI 19 kg/m2 08/19/2024 10:29:00 [facility] PAIN 0 08/19/2024 10:29:00 [facility] HEIGHT 68.0 08/19/2024 10:29:00 [facility] TEMPERATURE 98.3 08/19/2024 10:29:00 [facility] PULSE 68 08/19/2024 10:29:00 [facility] RESPIRATION 17 08/19/2024 10:29:00 [facility] Encounters Combined list of: 1) Encounters from Department of Veterans Affairs facilities going backup to the last 18 months, not all VA inpatient encounters are included; 2) Encounters from the Department of Defense facilities going backup to 280 months. Location Location Details Encounter Type Encounter Number Reason For Visit Attending Provider ADM Date DC Date Status Disposition Source [facility] MTOK BY PHARM EST 15 MIN [id number] Diagnos is: ICD-10- CM Z51.81 Encount er for therape utic drug level monitor ELISE Thompson 07/12 [facility] Outpatient Encounter [id number] 07/15 [facility] OFFICE O/P EST MOD 30 MIN [id number] Diagnos is: ICD-10- CM I10 Nehemiahenti al (primar y) hyperte Argelia Steel 07/15 [facility] Outpatient Encounter [id number] 08/03 [facility] Outpatient Encounter [id number] 08/04 [facility] En[facility] [id number] 09/29 [facility] MTOK BY PHARM EST 15 MIN [id number] Diagnos is: ICD-10- CM Z51.81 Encount er for therape utic drug level monitor ELISE Thompson 10/13 [facility] Outpatient Encounter [id number] 10/26 [facility] [place] [facility] Outpatient Encounter [id number] 10/27 [place] [facility] [place] [facility] MTMS BY PHARM EST 15 MIN [id number] Diagnos is: ICD-10- CM Z51.81 Encount er for therape utic drug level monitor ELISE Thompson 11/04 [place] [facility] Outpatient Encounter [id number] 11/25 [facility] [place] [facility] MTOK BY PHARM EST 15 MIN [id number] Diagnos is: ICD-10- CM Z51.81 Encount er for therape utic drug level monitor ELISE Thompson 12/07 [place] [facility] Outpatient Encounter [id number] 12/15 [facility] [place] [facility] Out[facility] Encounter [id number] 12/23 [place] [facility] Outpatient Encounter [id number] 12/29 [facility] MTOK BY PHARM EST 15 MIN [id number] Diagnos is: ICD-10- CM Z51.81 Encount er for therape utic drug level monitor ELISE Thompson 01/04 [facility] OFF/OP EST AUGUST X REQ PHY/QHP [id number] Diagnos is: ICD-10- CM Z23 Encount er for immuniz OZZIE Morris 01/20 [facility] MTMS BY PHARM EST 15 MIN [id number] Diagnos is: ICD-10- CM Z51.81 Encount er for therape utic drug level monitor ELISE Thompson 02/08 [facility] [facility] HC PRO PHONE CALL 5-10 MIN [id number] Diagnos is: ICD-10- CM Z71.89 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 ISAURA Mccullough R 02/11 [facility] MTMS BY PHARM EST 15 MIN [id number] Diagnos is: ICD-10- CM Z51.81 Encount er for therape utic drug level monitor ELISE Thompson 02/15 [facility] MTMS BY PHARM EST 15 MIN [id number] Diagnos is: ICD-10- CM Z51.81 Encount er for therape utic drug level monitor ELISE Thompson 02/22 [facility] Outpatient Encounter [id number] 03/09 [facility] MTMS BY PHARM EST 15 MIN [id number] Diagnos is: ICD-10- CM Z51.81 Encount er for therape utic drug level monitor ELISE Thompson 03/10 [facility] Outpatient Encounter [id number] 04/27 [facility] Outpatient Encounter [id number] 05/04 [facility] Outpatient Encounter [id number] 05/10 [facility] Outpatient Encounter [id number] 05/24 [facility] Outpatient Encounter [id number] 07/07 [facility] Outpatient Encounter [id number] 07/26 [place] [facility] OFFICE O/P EST MOD 30 MIN [id number] Diagnos is: ICD-10- CM I10 Essenti al (primar y) hyperte nsArgelia Olvera 08/19 [facility] Outpatient Encounter [id number] 08/30 [facility] Outpatient Encounter [id number] Argelia RAMIREZ 10/31 [facility] Outpatient Encounter [id number] Shelli GUERRA A 11/02 [facility] Outpatient Encounter [id number] 11/03 [facility] Social History Combined list of available smoking, tobacco, and other social history from Department of Defense and Veterans Affairs facilities. Social History Type Response Date Comment [facility] e Tobacco smoking status NHIS VA-TOBACCO USE FORMER CIGARETTES 08/19/2024 [facility] History of tobacco use VA-TOBACCO NEVER USED OTHER TYPE 08/19/2024 [facility] History of tobacco use VA-TOBACCO NEVER USED 07/16/2023 [facility] History of tobacco use VA-TOBACCO QUIT 15 YRS OR MORE 07/17/2022 [facility] History of tobacco use VA-TOBACCO NEVER USED 07/23/2021 [facility] History of tobacco use ORYX ADMIT TOBACCO SCREEN NO 06/24/2021 [facility] History of tobacco use VA-TOBACCO NEVER USED 06/20/2020 [facility] History of tobacco use ORYX ADMIT TOBACCO SCREEN NO 06/20/2020 [facility] History of tobacco use VA-TOBACCO QUIT 15 YRS OR MORE 05/19/2019 [facility] History of tobacco use VA-TOBACCO NEVER USED 11/02/2018 [facility] History of tobacco use INPT TOBACCO SCREENED NEGATIVE 08/31/2018 [facility] History of tobacco use OR-TOBACCO NEVER USED 08/27/2018 [facility] History of tobacco use VA-TOBACCO NEVER USED 04/13/2018 [facility] History of tobacco use LIFETIME NON-USER OF TOBACCO 02/19/2010 [facility] Plan of Care List of future care activities from [facility] facilities. Additional future care activities may be listed in the Assessment and Plan section. 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 An actual copy of the Directive is not included. Date Advance Directive Provider Source 08/31/2018 ADVANCE DIRECTIVE DISCUSSION GOSIA YANG [facility] 08/13/2010 ADVANCE DIRECTIVE DISCUSSION ELSA MILLS [facility]
[2024-11-28 21:47] VITALS: BP 154/73; PULSE 78; RESP 16; TEMP 37.2; O2SAT 98; BMI 19.8
--- OUTSIDE RECORDS SUMMARY | 2024-11-28 21:51 | XMS_ITS | Clinical Summary ---
Author Organization [facility] Address [address] [place] [address] Care Team Providers Care Dye Automation Operator Name Role Phone Unavailable Primary Care Provider Unavailabl e Social History Tobacco Use Types Packs/Day Years Used Date Smoking Tobacco: Never Assessed Sex and Gender Information Value Date Recorded Sex Assigned at Not on file Legal Sex Male 11:35 AM CDT Gender Identity Not on file Sexual Orientation Not on file Last Filed Vital Signs Vital Sign Reading Time Taken Comments Blood Pressure 127/71 11/08/2017 11:54 AM CDT Pulse - - Temperature 36.4 C (97.6 F) 11/08/2017 11:54 AM CDT Respiratory Rate 18 11/08/2017 11:54 AM CDT Oxygen Saturation 98% 11/08/2017 11:54 AM CDT Inhaled Oxygen Concentration - - Weight - - Height - - Body Mass Index - - Plan of Treatment Health Maintenance Due Date Last Done Comments DTAP/TDAP/TD VACCINES (1 - Tdap) 08/01/1967 PNEUMOCOCCAL VACCINE 50+ YEARS (1 of 1 - PCV) 07/31/18 99 ZOSTER VACCINE (1 of 2) 1998 RSV VACCINE (60+ or ) (1 - 1-dose 75+ series) 08/01/2023 INFLUENZA VACCINE (#1) 2024 Insurance MEDICARE PART A HOSPITAL ONLY
--- OUTSIDE RECORDS SUMMARY | 2024-11-28 21:51 | XMS_ITS | Clinical Summary ---
Author Organization [facility] Address [address] 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
[2024-11-28 21:53] VITALS: BP 154/73; PULSE 84; O2SAT 98
--- NOTE | 2024-11-28 21:58 | CTR_ITS ---
PROCEDURE INFORMATION: Exam: CT Head Without Contrast Exam date and time: 11/28/2024 10:12 PM Age: 74 years old Clinical indication: Altered mental status/memory loss; EMS arrival for confusion. History of RT sided CVA. TECHNIQUE: Imaging protocol: Computed tomography of the head without contrast. Radiation optimization: All CT scans at this facility use at least one of these dose optimization techniques: automated exposure control; mA and/or kV adjustment per patient size (includes targeted exams where dose is matched to clinical indication); or iterative reconstruction. COMPARISON: MR head wo con* [id number] 03/18/2023 9:55 AM RADIATION DOSE METRICS: Total DLP (mGy-cm): 1030.88 FINDINGS: Brain: Chronic small-vessel ischemic change. Encephalomalacia changes in the right posterior parietal and left anterior to mid frontal region. Few nonspecific chronic appearing lacunar foci in the basal ganglia. Cerebral ventricles: Moderate to severe involutional changes of the ventricles and sulci. Paranasal sinuses: Visualized sinuses are unremarkable. No fluid levels. Mastoid air cells: Visualized mastoid air cells are well aerated. Bones: Unremarkable. No acute fracture. Soft tissues: Unremarkable. CT/CT head wo con* [id number] IMPRESSION: No definite acute infarct or hemorrhage. Chronic findings as above.
--- NOTE | 2024-11-28 21:58 | XRR_ITS ---
PROCEDURE INFORMATION: Exam: XR Chest Exam date and time: 11/28/2024 10:04 PM Age: 74 years old Clinical indication: Other: Altered mental status; Additional info: Confusion TECHNIQUE: Imaging protocol: Radiologic exam of the chest. Views: 1 view. COMPARISON: CR XR chest 1V portable [id number] 03/17/2023 1:45 PM FINDINGS: Lungs: Hyperinflated lungs. Chronic fibrosis and scarring predominantly in the upper lungs. Stable appearance of calcified pleural plaques and areas of pleural thickening. No definite acute infiltrate or effusion. Pleural spaces: See Lungs finding. Heart/Mediastinum: Unremarkable. No cardiomegaly. Bones/joints: Unremarkable. XR/XR chest 1V portable [id number] IMPRESSION: Hyperinflated lungs. Chronic fibrosis and scarring predominantly in the upper lungs. Stable appearance of calcified pleural plaques and areas of pleural thickening. No definite acute infiltrate or effusion.
--- NOTE | 2024-11-28 22:00 | ECG_ITS ---
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 Measurements Intervals [place] Rate: 65 P: 42 IL: 174 QRS: 72 QRSD: 79 T: 68 QT: 414 QTc: 432 Interpretive Statements SINUS RHYTHM MINIMAL VOLTAGE CRITERIA FOR LVH, CONSIDER NORMAL VARIANT [MEETS CRITERIA IN ONE OF: R(aVL), S(V1), R(V5), R(V5/V6)+S(V1)] Compared to ECG 03/24/2023 16:34:42 Ventricular premature complex(es) no longer present Myocardial infarct finding no longer present Electronically Signed On 11-29-2024 08:03:58 CDT by Morteza Larson M.D. [email or web address]
[2024-11-28 22:12] LABS: Hematocrit 29.3 % (37-53); Hemoglobin 9.50 g/dL (11.27-16.99); Mean Corpuscular HGB Conc 32.4 g/dL (30-55); Mean Corpuscular Hemoglobin 35.2 pg (27-33); Mean Corpuscular Volume 108.5 fl (82-101); Nucleated Red Blood Cells % 0 %; Platelet Count 67 10^3/cmm (157-399); Red Blood Count 2.70 10^6/uL (3.85-5.65); White Blood Count 2.15 10^3/uL (3.29-11.43)
[2024-11-28 22:30] VITALS: BP 120/60; PULSE 71; RESP 16; O2SAT 97
[2024-11-28 22:30] LABS: Alanine Aminotransferase 12 U/L (0-41); Albumin Level 4.1 g/dL (3.5-5.2); Alkaline Phosphatase 114 U/L (40-130); Anion Gap 14.7 (5-19); Aspartate Amino Transferase 18 U/L (0-40); Blood Urea Nitrogen 15 mg/dL (8-23); Calcium 9.2 mg/dL (8.5-10.5); Carbon Dioxide 26 mmol/L (22-29); Chloride 100 mmol/L (98-107); Creatinine Clr Calc Pharmacy 63.8289; Globulin 3.0 g/dL (1.3-4.6); Glucose 187 mg/dL (65-115); Osmolality Calculated 290 mOsm/kg (285-295); Potassium 3.7 mmol/L (3.5-5.1); Sodium 137 mmol/L (136-145); Total Protein 7.1 g/dL (6.6-8.7)
[2024-11-28 22:34] LABS: Ammonia 29 umol/L (16-60)
[2024-11-28 22:37] LABS: Glucose Urine UA 1+ (Normal); Nitrate Urine Negative (Negative); Specific Gravity, Urine 1.006 (1.005-1.030)
[2024-11-28 22:39] LABS: Add Urine Microscopic? YES
[2024-11-28 22:46] LABS: Slide Review Slide Review Perform
[2024-11-28 23:25] VITALS: BP 121/60; PULSE 79; RESP 14; O2SAT 97
[2024-11-29 00:11] VITALS: BP 130/68; PULSE 62; RESP 14; O2SAT 97
--- NOTE | 2024-11-29 00:28 | W.ED.AMS ---
HPI - Altered Mental Status General: Chief Complaint: Altered Mental Status Stated Complaint: confusion Time Seen by Provider: 11/28/24 21:44 History of Present Illness: 74-yo M with Hx of prior stroke, myelodysplastic syndrome, paroxysmal nocturnal hemoglobinuria, HTN and prostate cancer treated with brachytherapy seeds arrived by ambulance after developing abrupt confusion earlier this afternoon. Pt states, ?I had a stroke,? but cannot describe specific onset or symptoms. Denies headache, chest pain, vision changes, focal weakness, numbness, falls, loss of consciousness, fever or cough. Brother later reported pt could not recall his meals today, corroborating a short-term memory deficit as chief issue. Pt is alert during interview, oriented to person and place, but demonstrates poor short-term recall. Lives alone but currently staying with brother/[id number]; usually independent. Requests assistance to void. No other acute complaints reported. Related Data Home Medications ?Medication ?Instructions ?Recorded ?Confirmed aspirin 81 mg tablet,delayed 81 mg PO DAILY 10/31/22 10/31/24 release cholecalciferol (vitamin D3) 10 20 mcg PO DAILY 10/31/24 10/31/24 mcg (400 unit) capsule tamsulosin 0.4 mg capsule 0.4 mg PO BID 10/31/24 10/31/24 ticagrelor 90 mg tablet 90 mg PO BID 10/31/24 10/31/24 Previous Rx's ?Medication ?Instructions ?Recorded atorvastatin 40 mg tablet 80 mg (2 x 40 mg) PO BEDTIME #60 03/26/23 tabs Medquadfi vaccine See Rx Instructions .Route 04/16/23 .COMPLEX #1 dose ondansetron 4 mg disintegrating 4 mg PO Q6H PRN nausea and 05/20/23 tablet vomiting #30 tabs folic acid 1 mg tablet See Rx Instructions .Route 10/26/24 .COMPLEX #30 tabs Allergies Allergy/AdvReac Type Severity Reaction Status Date / Time No Known Allergies Allergy Verified 10/31/24 10:23 [facility] PFS: Medical History (Updated 11/29/24 @ 00:01 by Aime Zamora MD) History of stroke MDS (myelodysplastic syndrome), high grade Paroxysmal nocturnal hemoglobinuria Hypertension Prostate cancer Treated with brachytherapy (seed implants) Surgical History History of bronchoscopy (2017) Bronchoscopy/EBUS with FNA biopsies of right lower lobe and mediastinal lymph nodes Family History Brother Lung disease Stage 4 lung cancer - smoker Other CAD (coronary artery disease) Cancer Denies family history of Diabetes Clotting disorder Dementia Hyperlipidemia Psychiatric illness Chronic kidney disease (CKD) Suicide Anesthesia complication Bleeding disorder Stroke Social History Smoking and tobacco/nicotine status: never used tobacco/nicotine Alcohol intake: current Alcohol intake frequency: holidays/special occasions only Physical Exam Const: COMMON NORMALS: no acute distress HENMT: COMMON NORMALS: normocephalic and atraumatic HEAD & SCALP: normocephalic and atraumatic Eye: COMMON NORMALS: Equal, round and reactive pupils present, EOMs intact bilaterally and no scleral icterus PUPIL: Yes Equal, round and reactive pupils present Resp: COMMON NORMALS: normal respiratory effort and No retractions Cardio: COMMON NORMALS: regular rate, regular rhythm and No murmurs present (Cardio) RATE: regular rate RHYTHM: regular rhythm GI: COMMON NORMALS: Normal to inspection, nondistended, normoactive bowel sounds present, Soft to palpation and non-tender PALPATION: Yes Soft to palpation Neuro: OTHER: Alert and oriented, no lateralizing motor or sensory deficits, impaired short-term memory. Skin: COMMON NORMALS: no rashes or lesions noted GENERAL SKIN EXAM: no rashes or lesions noted Course Vital Signs: Vital signs: Vital Signs Temperature 98.9 F 11/28/24 21:47 Pulse Rate 62 11/29/24 00:11 Respiratory Rate 14 11/29/24 00:11 Blood Pressure 130/68 11/29/24 00:11 Pulse Oximetry 97 11/29/24 00:11 Oxygen Delivery Me thod Room Air 11/29/24 00:11 MDM - Altered Mental Status Medical Decision Making The patient presents with possible acute on chronic confusion and self-reported ?stroke? without focal deficits; brother confirms short-term memory loss today. Physical exam reveals alert mentation with intact strength and sensation; short-term recall impaired. CT brain, labs, EKG unremarkable Stroke/TIA considered but felt unlikely given absence of weakness, numbness, speech or vision changes and a non-focal exam; other metabolic or hematologic causes possible in setting of myelodysplastic syndrome/PNH. In summary, patient has no appreciable findings on CT head or labs or EKG. I do not suspect any emergent process and he will be discharged home in stable condition with follow-up to primary care Lab Data 11/28/24 21:59 11/28/24 21:59 Radiology Impressions Chest X-Ray 11/28/24 21:58 IMPRESSION: Hyperinflated lungs. Chronic fibrosis and scarring predominantly in the upper lungs. Stable appearance of calcified pleural plaques and areas of pleural thickening. No definite acute infiltrate or effusion. Head CT 11/28/24 21:58 IMPRESSION: No definite acute infarct or hemorrhage. Chronic findings as above. Laboratory Results WBC 2.15 10^3/uL (3.29-11.43) L 11/28/24 21:59 RBC 2.70 10^6/uL (3.85-5.65) L 11/28/24 21:59 Hgb 9.50 g/dL (11.27-16.99) L 11/28/24 21:59 Hct 29.3 % (37-53) L 11/28/24 21:59 MCV 108.5 fl (82-101) H 11/28/24 21:59 MCH 35.2 pg (27-33) H 11/28/24 21:59 MCHC 32.4 g/dL (30-55) 11/28/24 21:59 RDW 18.5 % (12.1-15.1) H 11/28/24 21:59 Plt Count 67 10^3/cmm (157-399) L 11/28/24 21:59 MPV Not Reportable 11/28/24 21:59 Neut % (Auto) 68.3 % 11/28/24 21:59 Lymph % (Auto) 24.7 % 11/28/24 21:59 [place] % (Auto) 5.6 % 11/28/24 21:59 Eos % (Auto) 0.0 % 11/28/24 21:59 Baso % (Auto) 0.5 % 11/28/24 21:59 Neut # (Auto) 1.47 10^3/uL (1.8-7.7) L 11/28/24 21:59 Lymph # (Auto) 0.5 10^3/uL (0.8-4.8) L 11/28/24 21:59 [place] # (Auto) 0.1 10^3/uL (0.2-0.9) L 11/28/24 21:59 Eos # (Auto) 0.0 10^3/uL (0.0-0.8) 11/28/24 21:59 Baso # (Auto) 0.0 10^3/uL (0.0-0.1) 11/28/24 21:59 Nucleated RBC % (auto) 0 % 11/28/24 21:59 Nucleated RBCs # 0.0 /100WBC 11/28/24 21:59 Sodium 137 mmol/L (136-145) 11/28/24 21:59 Potassium 3.7 mmol/L (3.5-5.1) 11/28/24 21:59 Chloride 100 mmol/L (98-107) 11/28/24 21:59 Carbon Dioxide 26 mmol/L (22-29) 11/28/24 21:59 Anion Gap 14.7 (5-19) 11/28/24 21:59 BUN 15 mg/dL (8-23) 11/28/24 21:59 Creatinine 0.9 mg/dL (0.7-1.2) 11/28/24 21:59 GFR Calculation Not Reportable 11/28/24 21:59 Glucose 187 mg/dL (65-115) H 11/28/24 21:59 Calculated Osmolality 290 mOsm/kg (285-295) 11/28/24 21:59 Calcium 9.2 mg/dL (8.5-10.5) 11/28/24 21:59 Total Bilirubin 2.3 mg/dL (0.15-1.2) H 11/28/24 21:59 AST 18 U/L (0-40) 11/28/24 21:59 ALT 12 U/L (0-41) 11/28/24 21:59 Alkaline Phosphatase 114 U/L (40-130) 11/28/24 21:59 Ammonia 29 umol/L (16-60) 11/28/24 21:59 Total Protein 7.1 g/dL (6.6-8.7) 11/28/24 21:59 Albumin 4.1 g/dL (3.5-5.2) 11/28/24 21:59 Globulin 3.0 g/dL (1.3-4.6) 11/28/24 21:59 Urine Color Yellow (Yellow) 11/28/24 22:10 Urine Appearance Clear (CLEAR) 11/28/24 22:10 Urine pH 6.0 (5-7) 11/28/24 22:10 Ur Specific [place] 1.006 (1.005-1.030) 11/28/24 22:10 Urine Protein Negative (Negative) 11/28/24 22:10 Urine Glucose (UA) 1+ (Normal) H 11/28/24 22:10 Urine Ketones Negative (Negative) 11/28/24 22:10 Urine Blood Negative (Negative) 11/28/24 22:10 Urine Nitrate Negative (Negative) 11/28/24 22:10 Urine Bilirubin Negative (Negative) 11/28/24 22:10 Urine Urobilinogen 1.0 mg/dL (Negative) 11/28/24 22:10 Ur Leukocyte Esterase Negative (Negative) 11/28/24 22:10 Urine RBC 0-2 /hpf (0-2) 11/28/24 22:10 Urine WBC 0-5 /hpf (0-5) 11/28/24 22:10 Ur Squamous Epith Cells 0-5 /hpf (0-5) 11/28/24 22:10 Amorphous Sediment Not Reportable 11/28/24 22:10 Urine Bacteria None seen /hpf (NONE) 11/28/24 22:10 Hyaline Casts 0-4 /lpf H 11/28/24 22:10 All radiology interpretation(s) finalized by discharge EKG Data EKG 1: Interpretation: Time?2223?sinus rhythm, rate of 65, no ST segment elevation or depression, no T wave inversions, QTc = 425 Discharge Plan Discharge Patient Disposition: Home Clinical Impression: Confusion Condition: Stable Prescriptions: No Action cholecalciferol (vitamin D3) 10 mcg (400 unit) capsule 20 mcg PO DAILY tamsulosin 0.4 mg capsule 0.4 mg PO BID ondansetron 4 mg tablet,disintegrating 4 mg PO Q6H PRN (Reason: nausea and vomiting) Qty: 30 3RF ticagrelor 90 mg tablet 90 mg PO BID Medquadfi vaccine See Rx Instructions .ROUTE .COMPLEX Qty: 1 0RF Rx Instructions: Administer 1 dose folic acid 1 mg tablet See Rx Instructions .ROUTE .COMPLEX Qty: 30 0RF Dose Instruction: Take 1 tablet by mouth once daily Rx Instructions: Take 1 tablet by mouth once daily aspirin 81 mg Tablet,Delayed Release (Dr/Ec) 81 mg PO DAILY atorvastatin 40 mg Tablet 80 mg PO BEDTIME Qty: 60 0RF Discharge Orders: Discharge ED (Routine); Ordered 11/29/24 Ordered By: Aime Zamora Referrals: Susy Cantrell MD [Primary Care Provider, [facility]] Discharge Diet: Usual diet Discharge Activity: Resume usual activity Patient Instructions: Altered Mental Status (ED), Patient Portal & [place] Instructions Activity Restrictions/Additional Instructions: Today you had a CT scan of your brain and robust testing including chest x-ray EKG and blood work, none of which show any sign of stroke, brain bleed, infection, or metabolic reason for worsening confusion. Is safe to follow-up with your primary care doctor as you normally would. Print Language: Moroccan Coding Level of Care Code ED Recovery Collector for Pj Leo
== END 2024-11-29 01:55 | disposition home or self-care (01) ==
PROVIDERS: Emergency Provider Student in an Organized Health Care Education/Training Program; PCP Family Medicine
DX: R41.0 Disorientation, unspecified (principal); I10 Essential (primary) hypertension; Z86.73 Personal history of transient ischemic attack (TIA), and cerebral infarction without residual deficits
CPT/HCPCS: 36415; 70450; 71045; 80053; 81001; 82140; 85025; 93005; 99285

== ENCOUNTER 2024-12-26 09:34 | Oncology outpatient (recurring) (ONCR) | payer OTHER, SELFPAY ==
[2024-12-26 10:09] LABS: Hematocrit 28.9 % (37-53); Hemoglobin 9.60 g/dL (11.27-16.99); Mean Corpuscular HGB Conc 33.2 g/dL (30-55); Mean Corpuscular Hemoglobin 36.0 pg (27-33); Mean Corpuscular Volume 108.2 fl (82-101); Nucleated Red Blood Cells % 0 %; Platelet Count 74 10^3/cmm (157-399); Red Blood Count 2.67 10^6/uL (3.85-5.65); White Blood Count 2.11 10^3/uL (3.29-11.43)
[2024-12-26 10:25] LABS: Alanine Aminotransferase 13 U/L (0-41); Albumin Level 4.1 g/dL (3.5-5.2); Alkaline Phosphatase 109 U/L (40-130); Anion Gap 14.8 (5-19); Aspartate Amino Transferase 19 U/L (0-40); Blood Urea Nitrogen 17 mg/dL (8-23); Calcium 8.9 mg/dL (8.5-10.5); Carbon Dioxide 26 mmol/L (22-29); Chloride 99 mmol/L (98-107); Creatinine Clr Calc Pharmacy 60.9833; Globulin 3.1 g/dL (1.3-4.6); Glucose 137 mg/dL (65-115); Osmolality Calculated 286 mOsm/kg (285-295); Potassium 3.8 mmol/L (3.5-5.1); Sodium 136 mmol/L (136-145); Total Protein 7.2 g/dL (6.6-8.7)
[2024-12-26 10:58] LABS: Slide Review Slide Review Perform
[2024-12-26] MEDS: [UNRECOGNIZED DRUG - OTHER] IV (11:45)
[2024-12-26] MEDS: SODIUM CHLORIDE 0.9% IV (11:45)
[2024-12-26 12:32] VITALS: BP 104/63; PULSE 770; RESP 16; TEMP 36.1; O2SAT 98
== END 2024-12-26 23:59 | disposition home or self-care (01) ==
PROVIDERS: Nurse Practitioner Family; PCP Family Medicine; Visit Provider Internal Medicine Medical Oncology
DX: D59.5 Paroxysmal nocturnal hemoglobinuria [Marchiafava-Micheli] (principal); Z79.82 Long term (current) use of aspirin; Z79.01 Long term (current) use of anticoagulants; Z86.73 Personal history of transient ischemic attack (TIA), and cerebral infarction without residual deficits; Z79.899 Other long term (current) drug therapy
CPT/HCPCS: 80053; 82248; 83615; 85025; 96413; 99214; J1303

== ENCOUNTER 2025-02-20 08:42 | Oncology outpatient (recurring) (ONCR) | payer OTHER, SELFPAY ==
[2025-02-20 09:29] LABS: Hematocrit 30.0 % (37-53); Hemoglobin 9.60 g/dL (11.27-16.99); Mean Corpuscular HGB Conc 32.0 g/dL (30-55); Mean Corpuscular Hemoglobin 34.8 pg (27-33); Mean Corpuscular Volume 108.7 fl (82-101); Nucleated Red Blood Cells % 0 %; Platelet Count 78 10^3/cmm (157-399); Red Blood Count 2.76 10^6/uL (3.85-5.65); White Blood Count 1.97 10^3/uL (3.29-11.43)
[2025-02-20 09:47] LABS: Slide Review Slide Review Perform
[2025-02-20 10:09] LABS: Alanine Aminotransferase 12 U/L (0-41); Albumin Level 3.8 g/dL (3.5-5.2); Alkaline Phosphatase 118 U/L (40-130); Anion Gap 12.2 (5-19); Aspartate Amino Transferase 19 U/L (0-40); Blood Urea Nitrogen 13 mg/dL (8-23); Calcium 8.7 mg/dL (8.5-10.5); Carbon Dioxide 28 mmol/L (22-29); Chloride 104 mmol/L (98-107); Ferritin 119 ng/mL (30-400); Globulin 3.3 g/dL (1.3-4.6); Glucose 92 mg/dL (65-115); Iron 94 ug/dL (59-158); Osmolality Calculated 290 mOsm/kg (285-295); Potassium 4.2 mmol/L (3.5-5.1); Sodium 140 mmol/L (136-145); Total Iron Binding Capacity 228 mcg/dl; Total Protein 7.1 g/dL (6.6-8.7); Unsaturated Iron Binding 134 ug/dL (112-347); Vitamin B12 399 pg/mL (232-1245)
[2025-02-20] MEDS: [UNRECOGNIZED DRUG - OTHER] IV (11:28)
[2025-02-20] MEDS: SODIUM CHLORIDE 0.9% IV (11:28)
[2025-02-20 12:36] VITALS: BP 97/60; PULSE 84; RESP 16; TEMP 35.9; O2SAT 98
== END 2025-02-20 23:59 | disposition home or self-care (01) ==
PROVIDERS: PCP Family Medicine; Visit Provider Internal Medicine Medical Oncology
DX: D59.5 Paroxysmal nocturnal hemoglobinuria [Marchiafava-Micheli] (principal); D46.Z Other myelodysplastic syndromes; Z79.899 Other long term (current) drug therapy
CPT/HCPCS: 36415; 80053; 82607; 82728; 82746; 83540; 83550; 83615; 85025; 96413; 99214; J1303